=== PATIENT | male | born 1990 | race Caucasian/White ===

== ENCOUNTER → 2016-06-26 | Outpatient (CLI) | payer BC ==
[~2016-06-26] MED LIST: INSDGI SC; INSUINJ14 SC; LEVO125T4 PO
[2016-06-26 12:06] LABS: ALT/SGPT 29 U/L (12-78); AST/SGOT 18 U/L (15-37); BLOOD UREA NITROGEN 16 mg/dl (7-18); BUN/CREATININE RATIO 16.6 (10-20); CALCIUM 9.4 mg/dl (8.5-10.1); CARBON DIOXIDE 28 mmol/L (21-32); CHLORIDE 101 mmol/L (98-107); CREATININE 0.96 mg/dl (0.60-1.40); GLUCOSE 116 mg/dl (70-99); POTASSIUM 3.9 mmol/L (3.5-5.1); SODIUM 138 mmol/L (136-145)
[2016-06-26 12:16] LABS: ALB/GLOB RATIO 0.9 (0.9-2); ALKALINE PHOSPHATASE 162 U/L (45-117); CHOLESTEROL 242 mg/dl (0-200); CHOLESTEROL/HDL RATIO 3.6; HDL CHOLESTEROL 67 mg/dl; LDL CHOLESTEROL CALCULATED 116 mg/dl; TRIGLYCERIDES 294 mg/dl (0-150); VERY LOW DENSITY LIPOPROT CALC 59 mg/dl
[2016-06-26 12:30] LABS: RATIO 19.5 mcg/mg (0-30.0)
[2016-06-26 12:59] LABS: ESTIMATED AVERAGE GLUCOSE 298 mg/dl; HA1C FLAG Normal (Normal)
== END | disposition home or self-care (01) ==
LOC: C.LAB1850 10:29
PROVIDERS: ATTEND Nurse Practitioner Adult Health
DX: E10.9 Type 1 diabetes mellitus without complications (principal); E03.9 Hypothyroidism, unspecified; E06.3 Autoimmune thyroiditis; E55.9 Vitamin D deficiency, unspecified

== ENCOUNTER 2019-07-08 21:59 | Inpatient (IN) ==
[2019-07-08] MEDS ORDERED: SODIUM CHLORIDE 0.9% 1000ML 2,000 ML IV ONE (22:21)
[2019-07-08] MEDS ORDERED: ONDANSETRON INJ 2 MG/ML 2 ML VIAL IV STA (22:21)
--- NOTE | 2019-07-08 22:53 | XRay Report ---
XR chest 1V portable HISTORY: 29 years-old Male cough acute cough with flulike symptoms COMPARISON: Chest radiographs 09/07/2012 TECHNIQUE: Portable AP view of the chest FINDINGS: Cardiomediastinal and hilar silhouettes are within normal limits. No pneumothorax, pleural effusion, focal airspace consolidation or overt pulmonary edema. Bones of the chest appear grossly intact. IMPRESSION: No acute process. ACT 112: Negative or not required by law. The above report was generated using voice recognition software. It may contain grammatical, syntax o r spelling errors. Electronically signed by: Roly Velasquez M.D. 07/08/2019 10:52 PM
[2019-07-08 22:56] LABS: Basophils # (auto) 0.02 K/uL (0-0.2); Basophils % (auto) 0.1 %; Immature Granulocytes # (auto) 0.03 K/uL (0.00-0.02); Immature Granulocytes % (auto) 0.2 %; Lymphocytes # (auto) 1.44 K/uL (1.2-3.4); Lymphocytes % (auto) 10.1 %; Mean Corpuscular Hemoglobin 28.8 pg (25-34); Mean Corpuscular Hgb Conc 34.7 g/dL (32-36); Mean Corpuscular Volume 83.1 fL (80-100); Mean Platelet Volume 10.2 fL (7.4-10.4); Monocytes # (auto) 0.99 K/uL (0.11-0.59); Neutrophils # (auto) 11.73 K/uL (1.4-6.5); Neutrophils % (auto) 82.6 %; Platelet Count 302 K/uL (130-400); RDW Coefficient of Variation 13.3 % (11.5-14.5); RDW Standard Deviation 39.6 fL (36.4-46.3); White Blood Count 14.21 K/uL (4.8-10.8)
[2019-07-08 23:07] LABS: Partial Thromboplastin Ratio 1.1; Partial Thromboplastin Time 30.9 Seconds (21.0-31.0); Prothrombin Time 10.5 Seconds (9.0-12.0)
[2019-07-08 23:25] LABS: Albumin Globulin Ratio 0.7 (0.9-2); BUN Creatinine Ratio 8.9 (10-20); Bilirubin,Total 0.5 mg/dl (0.2-1); Calcium 9.5 mg/dl (8.5-10.1); Creatinine Clr Calc Pharmacy 91.6 ml/min; Est GFR (Non-African American) 62.1; Globulin 5.5 gm/dl (2.5-4.0); Potassium 4.5 mmol/L (3.5-5.1); Total Protein 9.5 gm/dl (6.4-8.2)
[2019-07-09 00:08] LABS: Appearance Urine Clear (Clear); Bacteria Urine Automated Negative (Negative); Bilirubin Urine Negative (Negative); Blood Urine 1+ (Negative); Color Urine Yellow; Glucose Urine UA 3+ (Negative); Leukocyte Esterase Urine Negative (Negative); Nitrite Urine Negative (Negative); Protein Urine 2+ (Negative); RBC Urine Automated 0-4 /hpf (0-4); Specific Gravity Urine 1.031 (1.000-1.030); Urobilinogen Urine Negative (Negative)
[2019-07-09 00:18] LABS: Ketones Urine 4+ (Negative)
[2019-07-09 00:19] LABS: Beta-Hydroxybutyrate 88.42 mg/dl (0.2-2.81)
[2019-07-09] MEDS ORDERED: OSELTAMIVIR PHOSPHATE 75 MG CAP PO STA (00:30)
[2019-07-09] MEDS ORDERED: DiphenhydrAMINE HCL 50 MG/ML VIAL IV STA (00:39)
[2019-07-09] MEDS ORDERED: PROCHLORPERAZINE 2 ML IV ONE (00:39)
[2019-07-09] MEDS ORDERED: ALBUT/IPRATROP 3MG/0.5MG NEB 3 ML VIAL INH PRN (02:08)
[2019-07-09] MEDS ORDERED: ICU PROTOCOL FOR HYPERGLYCEMIA PRN (02:08)
--- NOTE | 2019-07-09 02:09 | History & Physical Report ---
Date of Service July 09, 2019 Assessment & Plan (1) DKA (diabetic ketoacidoses): Patient is a 29-year-old male with a past medical history of obesity, hypothyroidism/Elias's thyroiditis, poorly controlled type 1 diabetes, who presents to the emergency department for evaluation of hyperglycemia, nausea and vomiting in the setting of recent influenza infection and diagnosed with diabetic ketoacidosis. #Diabetic ketoacidosis Patient with a longstanding history of poorly controlled type 1 diabetes most recent A1c was 11.2. Patient does not use an insulin pump at home however checks his blood sugars before meals at bedtime. Patient reports his blood sugars were responding normally to insulin, however he became sick. This morning he was experiencing nausea and vomiting and was noted to be hyperglycemic to the 400. Given his symptoms he presented to the emergency department further evaluation. Labs in the emergency department are consistent with DKA, hyperglycemia to 305, bicarb of 12, beta junction butyrate of 88, gap of 24. Given his fluctuating mental status patient will be admitted to the ICU for management of DKA. -Admit to the ICU -Insulin drip -BMP every 4 hours -DKA protocol -Monitor respiratory and neurological status #Influenza Symptoms started this past Friday was evaluated on the by nurse practitioner started him on Tamiflu. Continue Tamiflu, treat symptomatically as indicated. -Continue Tamiflu -IV Tylenol for fever/pain -Duo nebs and budesonide for respiratory -Chest PT/flutter valve/incentive spirometry -When able convert to p.o. meds #Poorly controlled diabetes type 1 Patient with a most recent A1c of 11.2. Needs to obtain better glucose control. Consider consulting inclusion paraeducator prior to discharge for strategies to better control his glucose. -Consider inclusion paraeducator consult #History of Elias's thyroiditis -Continue levothyroxine 150 mcg p.o. every morning #Dyslipidemia Most recent LDL was 114 from February 2019, given his poorly controlled diabetes, and elevated cholesterol this patient would likely benefit from statin therapy. -Consider addition of statin on discharge FENa: N.p.o. for now Code Status: Full DVT PPX: Lovenox PT/OT: Not indicated Dispo: ICU Cholo Bryan MD PGY 2, FCM This chart was completed utilizing netomat voice recognition software. Grammatical errors, random word insertions, pronoun errors, and in complete sentences are an occasional consequence of the system. Any questions or concerns about the content, text, or information contained within the body of this dictation should be addressed directly to the physician for clarification. 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 Patient was in his usual state of health until this past Friday when he began experiencing flu symptoms. He reported that they hit him like a train. He experience cough, congestion, malaise, muscle aches and pains, and other symptoms typical of flu. He presented to [facility] the where he was diagnosed with influenza and started on Tamiflu. The patient did not modify his insulin regimen to account for his illness. He continued to be symptomatic and this morning developed nausea and vomiting. He has been nauseated and vomited throughout the entire day unable to keep any food down, with some associated abdominal pain, denies constipation, diarrhea, chest pressure, chest pain, shortness of breath, trouble breathing, other concerning signs or symptoms. The patient reported checking his blood sugars throughout the day and noted his highest value to be 400. Upon arrival to the emergency department labs were obtained and pertinent for a white count of 14.21 with a neutrophil predominance 11.73. Chemistries were notable for a sodium of 129, carbon dioxide of 12, creatinine of 1.49 glucose of 363, anion gap of 24, alkaline phosphatase of 160, total protein 9.5, lipase 30, beta hydroxybutyrate 88.42. Urinalysis demonstrated specific gravity of 1.031, 2+ protein, 3+ glucose, 4+ ketones, 1+ blood with hyaline casts and epithelial cells. A chest x-ray was obtained and was negative. The hospital service was consulted for admission for DKA in the setting of influenza. Upon evaluation the patient in the emergency department he appeared alert and oriented however stuporous and frequently will fall asleep mid conversation. The history described above was obtained through combinations of talking with the patient and his mother who was present in the room. Given the patient's fluctuating mental status the patient will be admitted to the ICU. Acute concerns related to influenza status, and mental status. All questions answered Primary Care Provider: Zaynab Gomez MD Allergies Allergy/AdvReac Type Severity Reaction Status Date / Time No Known Allergies Allergy Verified 07/08/19 22:32 Home Medications Home Medications Medication Instructions Recorded Confirmed Type insulin aspart U-100 100 unit/mL See Rx Instructions .ROUTE 03/15/19 07/08/19 History (3 mL) subcutaneous pen .COMPLEX #30 ml Lantus Solostar U-100 Insulin 100 See Rx Instructions SQ .COMPLEX 90 06/28/19 07/08/19 Rx unit/mL (3 mL) subcutaneous pen Days #3 box NS oseltamivir 75 mg capsule 75 mg PO BID PRN 5 Days #10 cap 07/07/19 07/08/19 Rx ergocalciferol (vitamin D2) 50,000 units PO 3XWK 07/08/19 07/08/19 History levothyroxine 150 mcg PO QAM 07/08/19 07/08/19 History Past Med/Surg History Medical History Background diabetic retinopathy associated with type 1 diabetes mellitus (Acute) Dyslipidemia (Acute) Erectile dysfunction (Acute) Elias's thyroiditis (Acute) Hypothyroidism (Acute) Microalbuminuria (Acute) Neurodermatitis (Acute) Obesity (BMI 30.0-34.9) (Acute) Uncontrolled type 1 diabetes mellitus with neurologic complication, with long- term current use of insulin (Acute) Uncontrolled type 1 diabetes mellitus with ophthalmic complication, with long- term current use of insulin (Acute) Vitamin D deficiency (Acute) Surgical History No pertinent past surgical history S/P tooth extraction Family History Grandfather Diabetes Aunt Diabetes Denies family history of Ovarian cancer Prostate cancer Myocardial infarction Breast cancer Lung cancer Colorectal cancer Stroke Social History Preferred Language: Kyr[place]z Communication Ability: Effective Visual Impairment: Limited Hearing Ability: Normal Wood Scaler Required: No Beliefs That Will Affect Care: None marital status: Current Living Situation: Family current occupational status: employed 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 Other Information That Helps Us Care for You: No Feels Safe at Home: Yes Safety Concerns: Feels Safe At This Time Smoking Status: Never smoker Do You Dip or Chew Tobacco: No ; Second Hand Exposure: No ; Tobacco Cessation Education Requested by Patient: No Hx Alcohol Use: Yes Alcohol type: hard liquor Alcohol Intake Frequency: Rarely Hx Substance Use: No Childhood Exposure to Second-Hand Smoke: No Review of Systems Review of Systems: 12 point review of systems negative except as noted above or below Constitutional: Normal or as above Eyes and Vision: Normal or as above ENT: Normal or as above Cards: Normal or as above Respiratory: Normal or as above GI: Normal or as above : Normal or as above MSK: Normal or as above Skin: Normal or as above Neuro: Normal or as above Psych: normal or as above Allergy and Immunology: Normal or as above Physical Exam Physical Exam: General: Somnolent gentleman appearing his stated age lying in bed coughing HEENT: Normocephalic atraumatic Neck: Normal to visual inspection, trachea midline, negative JVD Cardiac: Tachycardic otherwise regular rate and rhythm, no murmurs rubs or gallops, normal S1, normal S2, I did not appreciate any significant pedal edema, nor calf tenderness Respiratory: Clear to auscultation bilaterally with symmetrical chest expansion bilaterally a bit tachypneic at times, no increased work of breathing GI: Bowel sounds present hypoactive in nature otherwise soft, nontender, nondistended MSK: Moves all extremities Skin: Excoriations and scars throughout his body supposedly gets bug bites and picks at them Neuro: Intermittently alert and oriented x4 was able to perform executive functions, however would frequently fall asleep during the interview Psych: Calm and cooperative Results & Data Vital Signs (Past 12 Hours) Vital Signs Temp Pulse Resp BP Pulse Ox 07/08/19 23:30 95 H 19 125/85 96 07/08/19 23:01 89 22 98 07/08/19 23:00 91 H 26 H 156/99 H 97 07/08/19 22:50 89 21 98 07/08/19 22:46 96 H 13 97 02/27/20 22:44 89 19 155/94 H 95 07/08/19 22:37 96 07/08/19 22:04 36.7 C 108 H 18 142/84 H 98 Laboratory Results 07/09/19 07/08/19 07/08/19 Range/Units 00:32 23:55 22:41 WBC (4.8-10.8) K/uL RBC (4.7-6.1) M/uL Hgb (14.0-18.0) g/dL Hct (42-52) % MCV (80-100) fL MCH (25-34) pg MCHC (32-36) g/dL RDW Std Deviation (36.4-46.3) fL RDW Coeff of Edie (11.5-14.5) % Plt Count (130-400) K/uL MPV (7.4-10.4) fL Immature Gran % (Auto) % Neut % (Auto) % Lymph % (Auto) % [place] % (Auto) % Eos % (Auto) % Baso % (Auto) % Immature Gran # (Auto) (0.00-0.02) K/uL Neut # (Auto) (1.4-6.5) K/uL Lymph # (Auto) (1.2-3.4) K/uL [place] # (Auto) (0.11-0.59) K/uL Eos # (Auto) (0-0.5) K/uL Baso # (Auto) (0-0.2) K/uL PT (9.0-12.0) Seconds INR (0.9-1.1) APTT (21.0-31.0) Seconds PTT Ratio Sodium (136-145) mmol/L Potassium (3.5-5.1) mmol/L Chloride (98-107) mmol/L Carbon Dioxide (21-32) mmol/L Anion Gap (3-11) BUN (7-18) mg/dl Creatinine (0.6-1.4) mg/dl Est Cr Clr Drug Dosing ml/min Est GFR ( Amer) Est GFR (Non-Af Amer) BUN/Creatinine Ratio (10-20) Glucose (70-99) mg/dl POC Glucose 305 H* (70-99) mg/dl Lactate 1.6 (0.4-2.0) mmol/L Calcium (8.5-10.1) mg/dl Total Bilirubin (0.2-1) mg/dl AST (15-37) U/L ALT (12-78) U/L Alkaline Phosphatase (45-117) U/L Total Protein (6.4-8.2) gm/dl Albumin (3.4-5.0) gm/dl Globulin (2.5-4.0) gm/dl Albumin/Globulin Ratio (0.9-2) Lipase (73-393) U/L Beta-Hydroxybutyric Acd (0.2-2.81) mg/dl Urine Color Yellow Urine Appearance Clear (Clear) Urine pH 5.0 (4.5-7.5) Ur Specific [place] 1.031 H (1.000-1.030) Urine Protein 2+ H (Negative) Urine Glucose (UA) 3+ H (Negative) Urine Ketones 4+ H (Negative) Urine Blood 1+ H (Negative) Urine Nitrite Negative (Negative) Urine Bilirubin Negative (Negative) Urine Urobilinogen Negative (Negative) Ur Leukocyte Esterase Negative (Negative) Urine WBC (Auto) 1-5 (0-5) /hpf Urine RBC (Auto) 0-4 (0-4) /hpf U Hyaline Cast (Auto) 5-10 H (0-5) /lpf U Epithel Cells (Auto) 10-20 H (0-5) /lpf Urine Bacteria (Auto) Negative (Negative) 07/08/19 07/08/19 07/08/19 Range/Units 22:41 22:41 22:41 WBC 14.21 H (4.8-10.8) K/uL RBC 5.90 (4.7-6.1) M/uL Hgb 17.0 (14.0-18.0) g/dL Hct 49.0 (42-52) % MCV 83.1 (80-100) fL MCH 28.8 (25-34) pg MCHC 34.7 (32-36) g/dL RDW Std Deviation 39.6 (36.4-46.3) fL RDW Coeff of Edie 13.3 (11.5-14.5) % Plt Count 302 (130-400) K/uL MPV 10.2 (7.4-10.4) fL Immature Gran % (Auto) 0.2 % Neut % (Auto) 82.6 % Lymph % (Auto) 10.1 % [place] % (Auto) 7.0 % Eos % (Auto) 0.0 % Baso % (Auto) 0.1 % Immature Gran # (Auto) 0.03 H (0.00-0.02) K/uL Neut # (Auto) 11.73 H (1.4-6.5) K/uL Lymph # (Auto) 1.44 (1.2-3.4) K/uL [place] # (Auto) 0.99 H (0.11-0.59) K/uL Eos # (Auto) 0.00 (0-0.5) K/uL Baso # (Auto) 0.02 (0-0.2) K/uL PT 10.5 (9.0-12.0) Seconds INR 1.0 (0.9-1.1) APTT 30.9 (21.0-31.0) Seconds PTT Ratio 1.1 Sodium 129 L (136-145) mmol/L Potassium 4.5 (3.5-5.1) mmol/L Chloride 93 L (98-107) mmol/L Carbon Dioxide 12 L (21-32) mmol/L Anion Gap 24.0 H (3-11) BUN 13 (7-18) mg/dl Creatinine 1.49 H (0.6-1.4) mg/dl Est Cr Clr Drug Dosing 91.6 ml/min Est GFR ( Amer) 72.0 Est GFR (Non-Af Amer) 62.1 BUN/Creatinine Ratio 8.9 L (10-20) Glucose 361 H* (70-99) mg/dl POC Glucose (70-99) mg/dl Lactate (0.4-2.0) mmol/L Calcium 9.5 (8.5-10.1) mg/dl Total Bilirubin 0.5 (0.2-1) mg/dl AST 16 (15-37) U/L ALT 19 (12-78) U/L Alkaline Phosphatase 160 H (45-117) U/L Total Protein 9.5 H (6.4-8.2) gm/dl Albumin 4.0 (3.4-5.0) gm/dl Globulin 5.5 H (2.5-4.0) gm/dl Albumin/Globulin Ratio 0.7 L (0.9-2) Lipase 30 L (73-393) U/L Beta-Hydroxybutyric Acd 88.42 H (0.2-2.81) mg/dl Urine Color Urine Appearance (Clear) Urine pH (4.5-7.5) Ur Specific [place] (1.000-1.030) Urine Protein (Negative) Urine Glucose (UA) (Negative) Urine Ketones (Negative) Urine Blood (Negative) Urine Nitrite (Negative) Urine Bilirubin (Negative) Urine Urobilinogen (Negative) Ur Leukocyte Esterase (Negative) Urine WBC (Auto) (0-5) /hpf Urine RBC (Auto) (0-4) /hpf U Hyaline Cast (Auto) (0-5) /lpf U Epithel Cells (Auto) (0-5) /lpf Urine Bacteria (Auto) (Negative) 07/08/19 Range/Units 22:40 WBC (4.8-10.8) K/uL RBC (4.7-6.1) M/uL Hgb (14.0-18.0) g/dL Hct (42-52) % MCV (80-100) fL MCH (25-34) pg MCHC (32-36) g/dL RDW Std Deviation (36.4-46.3) fL RDW Coeff of Edie (11.5-14.5) % Plt Count (130-400) K/uL MPV (7.4-10.4) fL Immature Gran % (Auto) % Neut % (Auto) % Lymph % (Auto) % [place] % (Auto) % Eos % (Auto) % Baso % (Auto) % Immature Gran # (Auto) (0.00-0.02) K/uL Neut # (Auto) (1.4-6.5) K/uL Lymph # (Auto) (1.2-3.4) K/uL [place] # (Auto) (0.11-0.59) K/uL Eos # (Auto) (0-0.5) K/uL Baso # (Auto) (0-0.2) K/uL PT (9.0-12.0) Seconds INR (0.9-1.1) APTT (21.0-31.0) Seconds PTT Ratio Sodium (136-145) mmol/L Potassium (3.5-5.1) mmol/L Chloride (98-107) mmol/L Carbon Dioxide (21-32) mmol/L Anion Gap (3-11) BUN (7-18) mg/dl Creatinine (0.6-1.4) mg/dl Est Cr Clr Drug Dosing ml/min Est GFR ( Amer) Est GFR (Non-Af Amer) BUN/Creatinine Ratio (10-20) Glucose (70-99) mg/dl POC Glucose 363 H* (70-99) mg/dl Lactate (0.4-2.0) mmol/L Calcium (8.5-10.1) mg/dl Total Bilirubin (0.2-1) mg/dl AST (15-37) U/L ALT (12-78) U/L Alkaline Phosphatase (45-117) U/L Total Protein (6.4-8.2) gm/dl Albumin (3.4-5.0) gm/dl Globulin (2.5-4.0) gm/dl Albumin/Globulin Ratio (0.9-2) Lipase (73-393) U/L Beta-Hydroxybutyric Acd (0.2-2.81) mg/dl Urine Color Urine Appearance (Clear) Urine pH (4.5-7.5) Ur Specific [place] (1.000-1.030) Urine Protein (Negative) Urine Glucose (UA) (Negative) Urine Ketones (Negative) Urine Blood (Negative) Urine Nitrite (Negative) Urine Bilirubin (Negative) Urine Urobilinogen (Negative) Ur Leukocyte Esterase (Negative) Urine WBC (Auto) (0-5) /hpf Urine RBC (Auto) (0-4) /hpf U Hyaline Cast (Auto) (0-5) /lpf U Epithel Cells (Auto) (0-5) /lpf Urine Bacteria (Auto) (Negative) Code Status & VTE Plan Code Status full VTE Prophylaxis Plan VTE Prophylaxis will be ordered: Yes Critical Care Time Critical Care Time: Yes Total Critical Care Time: 45 Total critical care time was 45 minutes Supervising Physician Co-Signing Physician Notes Attending addendum: I have physically seen this patient, have supervised the medical residents activities, and agree with the H&P unless as otherwise noted. Assessment and Plan: Diabetes mellitus type 1- Received 2 L normal saline in the ED. Patient will be admitted to the ICU. Begin insulin drip per protocol. BMP, magnesium and phosphorus levels every 4 hours. Order set per DKA protocol. Influenza B- Continue Tamiflu Acetaminophen 1000 mg IV every 8 hours PRN mild pain or temperature. Duonebs every 4 hours while awake and every 2 hours when necessary. Pulmicort Respules 0.5 mg inhaled twice daily Admitted to the intensive care unit- Consult bankruptcy assistant Dr. Canseco Remaining orders and notations per ICU staff. Resident Activity Tracking Resident Involvement: Resident Care Provided Care Provided: Adult [facility]
[2019-07-09] MEDS ORDERED: ACETAMINOPHEN 1,000 MG/100 ML VIAL IV PRN (02:12)
[2019-07-09] MEDS ORDERED: DKA GOAL RANGE 150-250 mg/dl ONE (02:12)
[2019-07-09] MEDS ORDERED: NORMOSOL-R 1,000 ML IV SCH (02:15)
--- NOTE | 2019-07-09 02:47 | Emergency Department Note ---
History of Present Illness General Chief complaint: Flu Like Symptoms Stated complaint: POSSIBLE FLU, VOMITING, DIABETIC Source: patient Mode of arrival: ambulatory Limitations: no limitations History of Present Illness Provider Complaint: + nausea, + vomiting and + other (influenza, diabetes) Onset (ago): hour(s) 5 Description of Vomiting: + food contents and + watery Description of Diarrhea: + none Associated Abdominal Pain: No Severity: moderate Maximum Pain Intensity: 4 Current Pain Intensity: 4 Quality: + cramping Pain Consistency: + intermittent Relieved By: + none Exacerbated By: + eating and + vomiting Associated symptoms: + myalgias, + cough, + fever/chills, + headaches, + malaise, + nausea/vomiting and + weakness Treatments prior to arrival: + none HPI Narrative: This 29-year-old male patient with significant past medical history of type 1 diabetes and hypothyroidism, recently diagnosed with influenza B presents the emergency department today, ambulatory, accompanied by his mother with complaints of nausea, vomiting which began approximately 5 hours prior to arrival. The patient states he was able to eat and drink earlier today, but developed the nausea and vomiting several hours later this evening. He denies any fever, chest pain, specific abdominal pain, but does report some generalized abdominal cramping. The patient states his body "feels warm". He was seen by his PCP yesterday and diagnosed with influenza. He was prescribed Tamiflu. He denies any diarrhea. Last bowel movement was today and was normal. The patient does admit to being a poorly controlled diabetic. He takes NovoLog and Lantus. His last blood sugar was 400 2 hours ago. He states typically it runs in the 200s. Home Medications Home Medications Medication Instructions Recorded Confirmed Type insulin aspart U-100 100 unit/mL See Rx Instructions .ROUTE 03/15/19 07/08/19 History (3 mL) subcutaneous pen .COMPLEX #30 ml Lantus Solostar U-100 Insulin 100 See Rx Instructions SQ .COMPLEX 90 06/28/19 07/08/19 Rx unit/mL (3 mL) subcutaneous pen Days #3 box NS oseltamivir 75 mg capsule 75 mg PO BID PRN 5 Days #10 cap 07/07/19 07/08/19 Rx ergocalciferol (vitamin D2) 50,000 units PO 3XWK 07/08/19 07/08/19 History levothyroxine 150 mcg PO QAM 07/08/19 07/08/19 History Allergies Allergy/AdvReac Type Severity Reaction Status Date / Time No Known Allergies Allergy Verified 07/08/19 22:32 Past Med/Surg History Medical History Background diabetic retinopathy associated with type 1 diabetes mellitus (Acute) Dyslipidemia (Acute) Erectile dysfunction (Acute) Elias's thyroiditis (Acute) Hypothyroidism (Acute) Microalbuminuria (Acute) Neurodermatitis (Acute) Obesity (BMI 30.0-34.9) (Acute) Uncontrolled type 1 diabetes mellitus with neurologic complication, with long- term current use of insulin (Acute) Uncontrolled type 1 diabetes mellitus with ophthalmic complication, with long- term current use of insulin (Acute) Vitamin D deficiency (Acute) Surgical History No pertinent past surgical history S/P tooth extraction Family History Grandfather Diabetes Aunt Diabetes Denies family history of Ovarian cancer Prostate cancer Myocardial infarction Breast cancer Lung cancer Colorectal cancer Stroke Social History Preferred Language: Yemeni Communication Ability: Effective Visual Impairment: Limited Hearing Ability: Normal On Site Manager Required: No Beliefs That Will Affect Care: None marital status: Current Living Situation: Family current occupational status: employed 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 Safe at Home: Yes Smoking Status: Never smoker Second Hand Exposure: No ; Hx Alcohol Use: Yes Alcohol Intake Frequency: Rarely Hx Substance Use: No Childhood Exposure to Second-Hand Smoke: No Review of Systems A total of 10 systems reviewed and were otherwise negative Physical Exam Vital Signs: Vital Signs - 24 hr 07/08/19 22:04 07/08/19 22:37 07/08/19 22:44 Temperature 36.7 C Temperature Source Oral Pulse Rate 108 H 89 Pulse Rate from Sp O2 Sensor 90 Respiratory Rate 18 19 Blood Pressure 142/84 H 155/94 H Blood Pressure Anju n 103 104 Pulse Oximetry 98 96 95 Oxygen Delivery Me thod Room Air Sepsis Recent Feve r Within 48 Hours Yes Sepsis New/Unexpla ined Change in Men padmini Status No Sepsis Action Take n by Nursing No Action Required 07/08/19 22:46 07/08/19 22:50 07/08/19 23:00 Temperature Temperature Source Pulse Rate 96 H 89 91 H Pulse Rate from Sp O2 Sensor 96 H 89 93 H Respiratory Rate 13 21 26 H Blood Pressure 156/99 H Blood Pressure Anju n 104 Pulse Oximetry 97 98 97 Oxygen Delivery Me thod Sepsis Recent Feve r Within 48 Hours Sepsis New/Unexpla ined Change in Men padmini Status Sepsis Action Take n by Nursing 07/08/19 23:01 07/08/19 23:30 07/09/19 00:01 Temperature Temperature Source Pulse Rate 89 95 H 104 H Pulse Rate from Sp O2 Sensor 90 Respiratory Rate 22 19 23 Blood Pressure 125/85 155/99 H Blood Pressure Anju n 102 113 Pulse Oximetry 98 96 99 Oxygen Delivery Me thod Sepsis Recent Feve r Within 48 Hours Sepsis New/Unexpla ined Change in Men padmini Status Sepsis Action Take n by Nursing 07/09/19 00:30 07/09/19 01:00 07/09/19 01:30 Temperature Temperature Source Pulse Rate 98 H 104 H 98 H Pulse Rate from Sp O2 Sensor Respiratory Rate 25 H 23 22 Blood Pressure 158/103 H 120/79 147/89 H Blood Pressure Anju n 121 94 111 Pulse Oximetry 97 97 97 Oxygen Delivery Me thod Sepsis Recent Feve r Within 48 Hours Sepsis New/Unexpla ined Change in Men padmini Status Sepsis Action Take n by Nursing 07/09/19 02:00 07/09/19 02:30 Temperature Temperature Source Pulse Rate 94 H 97 H Pulse Rate from Sp O2 Sensor Respiratory Rate 17 21 Blood Pressure 123/77 138/77 Blood Pressure Anju n 95 95 Pulse Oximetry 97 95 Oxygen Delivery Me thod Sepsis Recent Feve r Within 48 Hours Sepsis New/Unexpla ined Change in Men padmini Status Sepsis Action Take n by Nursing Physical Exam: VITALS: Vitals are noted on the nurse's note and reviewed by myself. Patient is tachycardic. Afebrile. GENERAL: This is a 29-year-old white male, in no acute distress, nondiaphoretic, well-developed well-nourished. SKIN: The skin was without rashes, erythema, edema, or bruising. There is no tenting of the skin. Capillary refill less than 2 seconds. HEAD: Normocephalic atraumatic. EARS: External auditory canals clear, tympanic membranes pearly lopez without erythema or effusion bilaterally. EYES: Pupils equal round and reactive to light and accommodation. Conjunctivae without injection, sclerae without icterus. NOSE: Patent, turbinates without inflammation or discharge. No sinus tenderness. MOUTH: Mucous membranes moist. Tonsils are not enlarged. Pharynx without eryth charlene or exudate. Uvula midline. Airway patent. Tongue does not deviate. NECK: Supple without nuchal rigidity. No lymphadenopathy. No thyromegaly. Cervical spine is nontender. No JVD. HEART: Regular rate and rhythm without murmurs gallops or rubs. LUNGS: Clear to auscultation bilaterally without wheezes, rales or rhonchi. No retractions or accessory muscle use. ABDOMEN: Positive bowel sounds x 4. Normal tympanic percussion. Soft, nontender, without masses or organomegaly. No guarding or rebound tenderness. MUSCULOSKELETAL: No muscle atrophy, erythema, or edema noted. Full range of motion without joint tenderness in all extremities. No tenderness to palpation. Normal gait. Strength 5/5 throughout. NEURO: Patient was alert and oriented to person place and time. Patient answer ing questions appropriately. Normal sensation to light and sharp touch. No focal neurological deficits. Course Course The patient was seen and evaluated as above. IV access obtained, labs drawn. Patient medicated with 2 L IV fluids, Zofran. Imaging performed and reviewed by myself and radiologist as noted. Labs reviewed by myself. I discussed the findings with the patient at bedside. He indicated that he was not advised to provide a urine sample. I provided him the sample cup and notified the nurse. Urinalysis reviewed. I discussed the case with the complaint manager. Recommended admission for DKA. I discussed the case with Dr. Byrd. He did agree to see and evaluate the patient. The patient was given Compazine and Benadryl due to vomiting and inability to tolerate the Tamiflu. Administered Medications Discontinued Medications Diphenhydramine HCl (Benadryl) 12.5 mg IV NOW STA Stop: 07/09/19 00:40 Last Admin: 07/09/19 00:41 Dose: 12.5 mg Documented by: [id number] Sodium Chloride (Nss 1000ml) 2,000 mls @ 999 mls/hr IV .Q2H1M ONE Stop: 07/09/19 00:21 Last Infusion: 07/09/19 00:42 Dose: 0 mls/hr Documented by: [id number] Admin: 07/08/19 22:41 Dose: 999 mls/hr Documented by: [id number] Prochlorperazine (Compazine) 2 mls @ 1 mls/min IV ONE ONE Stop: 07/09/19 00:40 Last Admin: 07/09/19 00:41 Dose: 1 mls/min Documented by: [id number] Ondansetron HCl (Zofran) 4 mg IV NOW STA Stop: 07/08/19 22:22 Last Admin: 07/08/19 22:41 Dose: 4 mg Documented by: [id number] Oseltamivir Phosphate (Tamiflu) 75 mg PO NOW STA; Protocol Stop: 07/09/19 00:31 Last Admin: 07/09/19 01:15 Dose: 75 mg Documented by: [id number] Medical Decision Making Differential Diagnosis + gastroenteritis, + food borne illness, + infections, + appendicitis, + diverticulitis, + inflammatory bowel disease, + GI bleed, + biliary pathology, + nausea, + vomiting, + diarrhea and + abdominal pain In addition to the above, influenza, DKA, HHS acute dehydration, malignancy, among others were considered. Medical Records Attestation: I reviewed the patient's medical records. Home Medications Current Medication List: was personally reviewed by me Laboratory Data Attestation: I reviewed the patient's lab results. Leukocytosis of 14,000. No anemia or thrombocytopenia. Coags normal. POC glucose 363. Lactate 1.6. Bicarb 12, beta hydroxybutyric acid 88, anion gap 24. Urinalysis positive for ketones, glucose. Result diagrams: 07/08/19 22:41 07/08/19 22:41 Lab Results 07/08/19 07/08/19 07/08/19 Range/Units 22:40 22:41 22:41 WBC 14.21 H (4.8-10.8) K/uL RBC 5.90 (4.7-6.1) M/uL Hgb 17.0 (14.0-18.0) g/dL Hct 49.0 (42-52) % MCV 83.1 (80-100) fL MCH 28.8 (25-34) pg MCHC 34.7 (32-36) g/dL RDW Std Deviation 39.6 (36.4-46.3) fL RDW Coeff of Edie 13.3 (11.5-14.5) % Plt Count 302 (130-400) K/uL MPV 10.2 (7.4-10.4) fL Immature Gran % (Auto) 0.2 % Neut % (Auto) 82.6 % Lymph % (Auto) 10.1 % Phelps % (Auto) 7.0 % Eos % (Auto) 0.0 % Baso % (Auto) 0.1 % Immature Gran # (Auto) 0.03 H (0.00-0.02) K/uL Neut # (Auto) 11.73 H (1.4-6.5) K/uL Lymph # (Auto) 1.44 (1.2-3.4) K/uL [place]ps # (Auto) 0.99 H (0.11-0.59) K/uL Eos # (Auto) 0.00 (0-0.5) K/uL Baso # (Auto) 0.02 (0-0.2) K/uL PT 10.5 (9.0-12.0) Seconds INR 1.0 (0.9-1.1) APTT 30.9 (21.0-31.0) Seconds PTT Ratio 1.1 Sodium (136-145) mmol/L Potassium (3.5-5.1) mmol/L Chloride (98-107) mmol/L Carbon Dioxide (21-32) mmol/L Anion Gap (3-11) BUN (7-18) mg/dl Creatinine (0.6-1.4) mg/dl Est Cr Clr Drug Dosing ml/min Est GFR ( Amer) Est GFR (Non-Af Amer) BUN/Creatinine Ratio (10-20) Glucose (70-99) mg/dl POC Glucose 363 H* (70-99) mg/dl Lactate (0.4-2.0) mmol/L Calcium (8.5-10.1) mg/dl Total Bilirubin (0.2-1) mg/dl AST (15-37) U/L ALT (12-78) U/L Alkaline Phosphatase (45-117) U/L Total Protein (6.4-8.2) gm/dl Albumin (3.4-5.0) gm/dl Globulin (2.5-4.0) gm/dl Albumin/Globulin Ratio (0.9-2) Lipase (73-393) U/L Beta-Hydroxybutyric Acd (0.2-2.81) mg/dl Urine Color Urine Appearance (Clear) Urine pH (4.5-7.5) Ur Specific [place] (1.000-1.030) Urine Protein (Negative) Urine Glucose (UA) (Negative) Urine Ketones (Negative) Urine Blood (Negative) Urine Nitrite (Negative) Urine Bilirubin (Negative) Urine Urobilinogen (Negative) Ur Leukocyte Esterase (Negative) Urine WBC (Auto) (0-5) /hpf Urine RBC (Auto) (0-4) /hpf U Hyaline Cast (Auto) (0-5) /lpf U Epithel Cells (Auto) (0-5) /lpf Urine Bacteria (Auto) (Negative) 07/08/19 07/08/19 07/08/19 Range/Units 22:41 22:41 23:55 WBC (4.8-10.8) K/uL RBC (4.7-6.1) M/uL Hgb (14.0-18.0) g/dL Hct (42-52) % MCV (80-100) fL MCH (25-34) pg MCHC (32-36) g/dL RDW Std Deviation (36.4-46.3) fL RDW Coeff of Edie (11.5-14.5) % Plt Count (130-400) K/uL MPV (7.4-10.4) fL Immature Gran % (Auto) % Neut % (Auto) % Lymph % (Auto) % [place] % (Auto) % Eos % (Auto) % Baso % (Auto) % Immature Gran # (Auto) (0.00-0.02) K/uL Neut # (Auto) (1.4-6.5) K/uL Lymph # (Auto) (1.2-3.4) K/uL [place] # (Auto) (0.11-0.59) K/uL Eos # (Auto) (0-0.5) K/uL Baso # (Auto) (0-0.2) K/uL PT (9.0-12.0) Seconds INR (0.9-1.1) APTT (21.0-31.0) Seconds PTT Ratio Sodium 129 L (136-145) mmol/L Potassium 4.5 (3.5-5.1) mmol/L Chloride 93 L (98-107) mmol/L Carbon Dioxide 12 L (21-32) mmol/L Anion Gap 24.0 H (3-11) BUN 13 (7-18) mg/dl Creatinine 1.49 H (0.6-1.4) mg/dl Est Cr Clr Drug Dosing 91.6 ml/min Est GFR ( Amer) 72.0 Est GFR (Non-Af Amer) 62.1 BUN/Creatinine Ratio 8.9 L (10-20) Glucose 361 H* (70-99) mg/dl POC Glucose (70-99) mg/dl Lactate 1.6 (0.4-2.0) mmol/L Calcium 9.5 (8.5-10.1) mg/dl Total Bilirubin 0.5 (0.2-1) mg/dl AST 16 (15-37) U/L ALT 19 (12-78) U/L Alkaline Phosphatase 160 H (45-117) U/L Total Protein 9.5 H (6.4-8.2) gm/dl Albumin 4.0 (3.4-5.0) gm/dl Globulin 5.5 H (2.5-4.0) gm/dl Albumin/Globulin Ratio 0.7 L (0.9-2) Lipase 30 L (73-393) U/L Beta-Hydroxybutyric Acd 88.42 H (0.2-2.81) mg/dl Urine Color Yellow Urine Appearance Clear (Clear) Urine pH 5.0 (4.5-7.5) Ur Specific [place] 1.031 H (1.000-1.030) Urine Protein 2+ H (Negative) Urine Glucose (UA) 3+ H (Negative) Urine Ketones 4+ H (Negative) Urine Blood 1+ H (Negative) Urine Nitrite Negative (Negative) Urine Bilirubin Negative (Negative) Urine Urobilinogen Negative (Negative) Ur Leukocyte Esterase Negative (Negative) Urine WBC (Auto) 1-5 (0-5) /hpf Urine RBC (Auto) 0-4 (0-4) /hpf U Hyaline Cast (Auto) 5-10 H (0-5) /lpf U Epithel Cells (Auto) 10-20 H (0-5) /lpf Urine Bacteria (Auto) Negative (Negative) 07/09/19 Range/Units 00:32 WBC (4.8-10.8) K/uL RBC (4.7-6.1) M/uL Hgb (14.0-18.0) g/dL Hct (42-52) % MCV (80-100) fL MCH (25-34) pg MCHC (32-36) g/dL RDW Std Deviation (36.4-46.3) fL RDW Coeff of Edie (11.5-14.5) % Plt Count (130-400) K/uL MPV (7.4-10.4) fL Immature Gran % (Auto) % Neut % (Auto) % Lymph % (Auto) % [place] % (Auto) % Eos % (Auto) % Baso % (Auto) % Immature Gran # (Auto) (0.00-0.02) K/uL Neut # (Auto) (1.4-6.5) K/uL Lymph # (Auto) (1.2-3.4) K/uL [place] # (Auto) (0.11-0.59) K/uL Eos # (Auto) (0-0.5) K/uL Baso # (Auto) (0-0.2) K/uL PT (9.0-12.0) Seconds INR (0.9-1.1) APTT (21.0-31.0) Seconds PTT Ratio Sodium (136-145) mmol/L Potassium (3.5-5.1) mmol/L Chloride (98-107) mmol/L Carbon Dioxide (21-32) mmol/L Anion Gap (3-11) BUN (7-18) mg/dl Creatinine (0.6-1.4) mg/dl Est Cr Clr Drug Dosing ml/min Est GFR ( Amer) Est GFR (Non-Af Amer) BUN/Creatinine Ratio (10-20) Glucose (70-99) mg/dl POC Glucose 305 H* (70-99) mg/dl Lactate (0.4-2.0) mmol/L Calcium (8.5-10.1) mg/dl Total Bilirubin (0.2-1) mg/dl AST (15-37) U/L ALT (12-78) U/L Alkaline Phosphatase (45-117) U/L Total Protein (6.4-8.2) gm/dl Albumin (3.4-5.0) gm/dl Globulin (2.5-4.0) gm/dl Albumin/Globulin Ratio (0.9-2) Lipase (73-393) U/L Beta-Hydroxybutyric Acd (0.2-2.81) mg/dl Urine Color Urine Appearance (Clear) Urine pH (4.5-7.5) Ur Specific [place] (1.000-1.030) Urine Protein (Negative) Urine Glucose (UA) (Negative) Urine Ketones (Negative) Urine Blood (Negative) Urine Nitrite (Negative) Urine Bilirubin (Negative) Urine Urobilinogen (Negative) Ur Leukocyte Esterase (Negative) Urine WBC (Auto) (0-5) /hpf Urine RBC (Auto) (0-4) /hpf U Hyaline Cast (Auto) (0-5) /lpf U Epithel Cells (Auto) (0-5) /lpf Urine Bacteria (Auto) (Negative) Imaging Data Radiologist's Impression: XR chest 1V portable HISTORY: 29 years-old Male cough acute cough with flulike symptoms COMPARISON: Chest radiographs 09/07/2012 TECHNIQUE: Portable AP view of the chest FINDINGS: Cardiomediastinal and hilar silhouettes are within normal limits. No pneumothorax, pleural effusion, focal airspace consolidation or overt pulmonary edema. Bones of the chest appear grossly intact. IMPRESSION: No acute process. ACT 112: Negative or not required by law. The above report was generated using voice recognition software. It may contain grammatical, syntax or spelling errors. Electronically signed by: Roly Velasquez M.D. 07/08/2019 10:52 PM Blood Pressure Blood Pressure Findings: Elevated blood pressure Blood Pressure Disposition: elevated BP felt to be situational MDM Narrative This 29-year-old male patient presents the emergency department today for nausea and vomiting, hyperglycemia, and influenza. He is a type I diabetic with poorly controlled blood sugars. The patient is tachycardic, but afebrile. He was hydrated with IV fluids medicated with antiemetics while here in the department. Work-up here in the ED consistent with DKA. Chest x-ray without evidence of pneumonia. The patient will be admitted to the hospitalist service for further evaluation and management of the DKA. Please see hospitalist dictation regarding ongoing management care of this patient. The chart was completed utilizing [employer] Speech voice recognition software. Grammatical errors, random word insertions, pronoun errors, and incomplete sentences are an occasional consequence of this system due to software limitations, ambient noise, and hardware issues. Any formal questions or concerns about the content, text, or information contained within the body of this dictation should be directly addressed to the provider for clarification. Impression & Plan DKA (diabetic ketoacidoses), Vomiting, Uncontrolled type 1 diabetes mellitus with ophthalmic complication, with long-term current use of insulin Discharge Plan Visit Data Chief Complaint: Flu Like Symptoms Stated Complaint: POSSIBLE FLU, VOMITING, DIABETIC ED Provider: [facility] Midlevel Provider: Carlie Swenson Discharge Problem: DKA (diabetic ketoacidoses), Vomiting, Uncontrolled type 1 diabetes mellitus with ophthalmic complication, with long-term current use of insulin Patient Disposition: Admitted As Inpatient Forms Stand Alone Forms: [facility] Prescriptions Prescriptions: No Action Lantus Solostar U-100 Insulin 100 unit/mL (3 mL) insulin pen See Rx Instructions SQ .COMPLEX 90 Days Qty: 3 RF: 1 insulin aspart U-100 100 unit/mL (3 mL) insulin pen See Rx Instructions .ROUTE .COMPLEX Qty: 30 RF: 0 oseltamivir 75 mg capsule 75 mg PO BID PRN (Reason: Inflluenza positive) 5 Days Qty: 10 RF: 0 levothyroxine 150 mcg tablet 150 mcg PO QAM RF: 0 ergocalciferol (vitamin D2) 50,000 unit capsule 50,000 units PO 3XWK RF: 0 Referrals Referrals: Zaynab Gomez MD [Primary Care Provider] -
[2019-07-09] MEDS ORDERED: NovoLIN-R BOLUS FROM BAG IV ONE (03:00)
[2019-07-09 03:02] LABS: Allen Test Pos (Pos); Base Excess ABG -15.4 mEq/L (-9-1.8); HCO3 ABG 11 mmol/L (19-24); Oxygen Saturation ABG 93.6 % (90-95); PCO2 ABG 27 mmHg (35-46); PO2 ABG 69 mmHg (80-95); pH ABG 7.22 (7.35-7.45)
[2019-07-09] MEDS ORDERED: PHARMACY GLYCEMIC MGMT CONSULT PRN (03:06)
[2019-07-09] MEDS ORDERED: GLUCAGON FOR INJ 1 MG VIAL IM PRN (03:15)
[2019-07-09] MEDS ORDERED: DEXTROSE 50% 50 ML SYRINGE IV PRN (03:15)
[2019-07-09] MEDS ORDERED: GLUCOSE 10 TABS/TUBE PO PRN (03:15)
[2019-07-09] MEDS ORDERED: GLUCOSE 40% GEL 15 GM TUBE PO PRN (03:15)
[2019-07-09 03:18] LABS: BUN Creatinine Ratio 8.8 (10-20); Calcium 8.3 mg/dl (8.5-10.1); Creatinine Clr Calc Pharmacy 111.9 ml/min; Est GFR (African American) 91.6; Est GFR (Non-African American) 79.1; Phosphorus 2.9 mg/dl (2.5-4.9); Potassium 4.9 mmol/L (3.5-5.1)
[2019-07-09] MEDS: INSULIN REGULAR 250 UNITS in SODIUM CHLORIDE 0.9% 247.5 ML IV SCH (03:36)
[2019-07-09] MEDS ORDERED: ONDANSETRON INJ 2 MG/ML 2 ML VIAL ONE (04:13)
[2019-07-09] MEDS ORDERED: ONDANSETRON INJ 2 MG/ML 2 ML VIAL IV STA (04:13)
[2019-07-09] MEDS ORDERED: DEXTROSE 5% 1,000 ML IV SCH (05:15)
[2019-07-09] MEDS: POTASSIUM CHLORIDE 20 MEQ in DEXTROSE 5% 1,000 ML IV SCH ×4 (05:29→20:00)
[2019-07-09] MEDS ORDERED: POTASSIUM CHLORIDE 20 MEQ in DEXTROSE 5% 1,000 ML IV SCH (05:30)
--- NOTE | 2019-07-09 05:34 | Critical Care Consultation ---
Date of Consultation July 09, 2019 Assessment & Plan (1) DKA (diabetic ketoacidoses): 29-year-old male with history of uncontrolled diabetes type 1 who presents to the emergency department in DKA following influenza B infection Neuro - [facility] ICU: Negative Alert and oriented x3 Cardiac - Normal sinus rhythm on monitor, continue monitor on telemetry Respiratory - Tachypneapatient has mild compensatory tachypnea with respiratory rate in the low 20s -CO2 27 on ABG, normal PO2 on room air -Currently maintaining sats on room air Influenza Bpatient complains of sore throat and has hoarseness, reports recent hemoptysis -Lungs clear to auscultation and patient maintaining sats on room air -No acute process on chest x-ray -Continue Tamiflu -Monitor on pulse ox for now GI - Nausea and vomitingcurrently controlled PRN's N.p.o. for now RENAL/LYTES - AKIlikely from dehydration, creatinine improved with fluid resuscitation, trend Replete electrolytes as necessary Every 4 BMPs Monitoring metabolic acidosis with routine VBG's, no intervention needed at this time - Strict I's and O's ENDO - Hypothyroidismcontinue Synthroid, check TSH DKA/uncontrolled type 1 diabeteslast hemoglobin A1c February was 11, will repeat on this admission; -Initial glucose 361, BHA 88, a gap 24, bicarb 12; UA positive for ketones and glucose -Started on insulin drip, IV fluid resuscitation -DKA protocol -Every 4 hour BMPs, VBG's -Can convert to subcu insulin once gap closed and bicarb improves -Consider consult to head concierge HEME - H&H stable, monitor routine CBCs ID - Patient positive for influenza B, will continue Tamiflu and contact precautions Chest x-ray negative for acute process, UA negative for bacteria Lactate negative, afebrile No suspicion of bacterial infection at this time LINES/IV ACCESS - Peripheral IVs DVT PROPHYLAXIS - SCDs, heparin (2) Influenza: (3) Elias's thyroiditis: (4) Hypothyroidism: (5) Vomiting: Supervising Physician Co-Signing Physician Notes I agree with assessment and plan of [place] CELAYA. Patient was discussed on multidisciplinary rounds. Closing gap, continued nausea and vomiting History of Present Illness Attending Physician: Francesco Byrd MD History of Present Illness 29-year-old male with PMH of hypothyroidism/Elias's thyroiditis, uncontrolled type 1 diabetes who was recently diagnosed with influenza B and started on Tamiflu. He developed nausea and vomiting with associated abdominal pain and was noted to be hyperglycemic with blood sugar in the 400s at home. Upon arrival to the emergency department, patient was found to be in DKA with a gap 24, pH 88, bicarb 12. UA was positive for ketones and glucose. Patient was reportedly altered mental status and tachypneic in the emergency department and there was concern for compromised airway. He was transferred to the ICU on insulin drip. On arrival patient is hemodynamically stable, mildly tachypneic with respiratory rate in the 20s, and somnolent but arousable with minor stimulation and alert and oriented. Was improving on most recent labs. Patient can likely transfer from ICU, but will manage for now until labs improve. Patient reports nausea and vomiting, sore throat, productive cough with hemoptysis, body aches, and malaise. He denies headache, dizziness, chest pain, shortness of breath, abdominal pain, or diarrhea. Allergies Allergy/AdvReac Type Severity Reaction Status Date / Time No Known Allergies Allergy Verified 07/08/19 22:32 Home Medications Home Medications Medication Instructions Recorded Confirmed Type insulin aspart U-100 100 unit/mL See Rx Instructions .ROUTE 03/15/19 07/08/19 History (3 mL) subcutaneous pen .COMPLEX #30 ml Lantus Solostar U-100 Insulin 100 See Rx Instructions SQ .COMPLEX 90 06/28/19 07/08/19 Rx unit/mL (3 mL) subcutaneous pen Days #3 box NS oseltamivir 75 mg capsule 75 mg PO BID PRN 5 Days #10 cap 07/07/19 07/08/19 Rx ergocalciferol (vitamin D2) 50,000 units PO 3XWK 07/08/19 07/08/19 History levothyroxine 150 mcg PO QAM 07/08/19 07/08/19 History Patient History Medical History Background diabetic retinopathy associated with type 1 diabetes mellitus (Acute) Dyslipidemia (Acute) Erectile dysfunction (Acute) Elias's thyroiditis (Acute) Hypothyroidism (Acute) Microalbuminuria (Acute) Neurodermatitis (Acute) Obesity (BMI 30.0-34.9) (Acute) Uncontrolled type 1 diabetes mellitus with neurologic complication, with long- term current use of insulin (Acute) Uncontrolled type 1 diabetes mellitus with ophthalmic complication, with long- term current use of insulin (Acute) Vitamin D deficiency (Acute) Surgical History No pertinent past surgical history S/P tooth extraction Family History Grandfather Diabetes Aunt Diabetes Denies family history of Ovarian cancer Prostate cancer Myocardial infarction Breast cancer Lung cancer Colorectal cancer Stroke Social History Preferred Language: Turkmen Communication Ability: Effective Visual Impairment: Limited Hearing Ability: Normal 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 Beliefs That Will Affect Care: None marital status: Current Living Situation: Family current occupational status: employed 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 Other Information That Helps Us Care for You: No Feels Safe at Home: Yes Safety Concerns: Feels Safe At This Time Smoking Status: Never smoker Do You Dip or Chew Tobacco: No ; Second Hand Exposure: No ; Tobacco Cessation Education Requested by Patient: No Hx Alcohol Use: Yes Alcohol type: hard liquor Alcohol Intake Frequency: Rarely Hx Substance Use: No Childhood Exposure to Second-Hand Smoke: No Review of Systems Review of Systems: All systems reviewed & are unremarkable except as noted in HPI & below Physical Exam Constitutional: cooperative and + lethargic; not in distress Eyes: PERRL, conjunctivae normal, anicteric sclerae Neck: trachea midline, no thyromegaly Respiratory: normal respiratory effort, lungs clear to auscultation Hemoptysis Cardiovascular: RRR, no murmur, no edema Gastrointestinal (Abdomen): normal bowel sounds, soft, nontender, no hepatosplenomegaly Musculoskeletal: no cyanosis or clubbing, extremities motor strength 5/5 Skin: no rashes, warm and dry Neurologic: PERRL, EOMI, accommodation nl, no face palsy, no dysarthria Psychiatric: A+Ox3, euthymic affect Results & Data ([facility]) Vital Signs (Past 12 Hours) Vital Signs Temp Pulse Pulse Resp BP BP Pulse Ox 07/09/19 05:01 87 17 151/90 H 95 07/09/19 04:30 98 H 18 96 07/09/19 04:25 98 H 18 96 07/09/19 04:10 36.7 C 105 H 19 156/91 H 96 07/09/19 04:09 100 H 24 145/89 H 95 07/09/19 02:30 97 H 21 138/77 95 07/09/19 02:00 94 H 17 123/77 97 07/09/19 01:30 98 H 22 147/89 H 97 07/09/19 01:00 104 H 23 120/79 97 07/09/19 00:30 98 H 25 H 158/103 H 97 07/09/19 00:01 104 H 23 155/99 H 99 07/08/19 23:30 95 H 19 125/85 96 07/08/19 23:01 89 22 98 07/08/19 23:00 91 H 26 H 156/99 H 97 07/08/19 22:50 89 21 98 07/08/19 22:46 96 H 13 97 07/08/19 22:44 89 19 155/94 H 95 07/08/19 22:37 96 07/08/19 22:04 36.7 C 108 H 18 142/84 H 98 Coding Level of Care Code 33757 Inpt Consult Level 5 Diagnoses DKA (diabetic ketoacidoses) E10.10 Diabetes mellitus complication detail: without coma Diabetes mellitus type: type 1 Influenza J11.1 Elias's thyroiditis E06.3 Hypothyroidism E03.9 Vomiting R11.2 Nausea presence: with nausea Vomiting Intractability: non-intractable Vomiting type: unspecified (1) DKA (diabetic ketoacidoses) Diabetes mellitus complication detail: without coma Diabetes mellitus type: type 1 Qualified Code(s): E10.10 - Type 1 diabetes mellitus with ketoacidosis without coma (2) Vomiting Nausea presence: with nausea Vomiting Intractability: non-intractable Vomiting type: unspecified Qualified Code(s): R11.2 - Nausea with vomiting, unspecified
[2019-07-09 06:13] LABS: Basophils # (auto) 0.02 K/uL (0-0.2); Basophils % (auto) 0.2 %; Hematocrit (blood only) 44.5 % (42-52); Hemoglobin 15.6 g/dL (14.0-18.0); Immature Granulocytes # (auto) 0.04 K/uL (0.00-0.02); Immature Granulocytes % (auto) 0.3 %; Lymphocytes # (auto) 1.59 K/uL (1.2-3.4); Lymphocytes % (auto) 12.8 %; Mean Corpuscular Hemoglobin 28.8 pg (25-34); Mean Corpuscular Hgb Conc 35.1 g/dL (32-36); Mean Corpuscular Volume 82.1 fL (80-100); Mean Platelet Volume 9.7 fL (7.4-10.4); Monocytes # (auto) 1.91 K/uL (0.11-0.59); Monocytes % (auto) 15.3 %; Neutrophils # (auto) 8.91 K/uL (1.4-6.5); Neutrophils % (auto) 71.4 %; Platelet Count 305 K/uL (130-400); RDW Coefficient of Variation 13.5 % (11.5-14.5); RDW Standard Deviation 40.4 fL (36.4-46.3); Red Blood Count 5.42 M/uL (4.7-6.1); White Blood Count 12.47 K/uL (4.8-10.8)
[2019-07-09 06:57] LABS: BUN Creatinine Ratio 8.8 (10-20); Creatinine Clr Calc Pharmacy 108.9 ml/min; Est GFR (Non-African American) 76.8; Phosphorus 2.7 mg/dl (2.5-4.9); Potassium 4.1 mmol/L (3.5-5.1)
[2019-07-09] MEDS: INSULIN ASPART 100 UNITS/ML 3 ML PEN SC SCH ×4 (07:29→19:22)
[2019-07-09] MEDS ORDERED: INSULIN ASPART 100 UNITS/ML 3 ML PEN SC SCH (07:30)
[2019-07-09 07:52] LABS: Estimated Average Glucose 283 mg/dl; Hemoglobin A1C 11.5 % (4.5-5.6)
[2019-07-09] MEDS: ONDANSETRON INJ 2 MG/ML 2 ML VIAL IV PRN ×3 (08:11→19:24)
[2019-07-09] MEDS: BUDESONIDE 0.5 MG/2 ML VIAL (PULMICORT) NEB SCH ×2 (08:19→21:00)
--- NOTE | 2019-07-09 09:55 | Hospitalist Progress Note ---
Date of Service July 09, 2019 Assessment & Plan (1) DKA (diabetic ketoacidoses): Patient is a 29-year-old male with a past medical history of obesity, hypothyroidism/Elias's thyroiditis, poorly controlled type 1 diabetes, who presents to the emergency department for evaluation of hyperglycemia, nausea and vomiting in the setting of recent influenza infection and was diagnosed with diabetic ketoacidosis. 1. Diabetic ketoacidosis - Patient is a poorly controlled type I diabetic, most recent A1c was 11.2. Patient did not change his insulin regimen while on the Tamiflu, and continued to feel nauseous and have vomiting episodes until he realized his sugar was in the 400s. At this time he brought himself to the emergency department. Glucose in the emergency department was 363, with a beta hydroxybutyrate of 88 and anion gap of 24. On an insulin drip until closure of anion gap. At that time will convert to subcu insulin. -ABG last night showed a pH of 7.22, PCO2 of 27, O2 of 69, carb of 11. Anion gap metabolic acidosis likely secondary to the DKA should resolve with closure of anion gap and insulin management as well as fluid repletion. Continue to trend BMPs monitor neurological status. - Antiemetic regimen: Zofran 4mg IV Q4H, Compazine 6.25 mg Q6 2. Influenza - Symptoms started this past Friday was evaluated on the by nurse practitioner started him on Tamiflu. Continue Tamiflu, treat symptomatically as indicated. - Hasn't received Tamiflu since prior to admission however continues to have frequent bouts of emesis and near constant nausea - IV Tylenol for fever/pain - Duo nebs and budesonide for respiratory - Chest PT/flutter valve/incentive spirometry - When able convert to p.o. meds 3.Uncontrolled diabetes type 1 - A1c 11.2 - patient resistant to diabetes education per nursing - will continue attempts at education 4. Hx Elias's thyroiditis -Continue levothyroxine 150 mcg p.o. every morning 5. 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 The time of our examination, patient was resting after being medicated with Phenergan. Unfortunately he has been quite nauseous throughout the day with repeated bouts of emesis despite antiemetics. Gap is narrowing but not closed. He remains on insulin drip. Diabetic ketoacidosis Influenza B Intractable nausea and vomiting Hypothyroidism Primary management by critical care team Electrolytes every 4 hours until gap closes, then transition to subcutaneous With continued nausea vomiting consider discontinuation of Tamiflu (unclear if there will be any benefit given the length since his initial diagnosis, and this could possibly explain his nausea and vomiting). Subjective 29 yo T1DM admitted to ICU for DKA secondary to N/V while on tamiflu that was started on the . This morning he continues to feel nauseous and was actively vomiting while I was in the room. Eyes any chest pain or palpitations, or shortness of breath. He attests to generally feeling fatigued and like he "got hit by a truck". Review of Systems Constitutional: + body aches and + fatigue; no fever and no chills Respiratory: no cough and no dyspnea Cardiovascular: no chest pain, no dyspnea and no edema Gastrointestinal: + nausea and + vomiting; no abdominal pain, no constipation and no diarrhea/loose stools Physical Exam Constitutional: + acute distress, + ill appearing and cooperative Neck: normal visual inspection Respiratory: normal respiratory effort and able to speak in complete sentences; no respiratory distress, no labored breathing, no retractions, no cough and no audible wheezes Auscultation: lungs clear to auscultation bilaterally; no crackles, no rales, no rhonchi and no wheezes Cardiovascular: Rate/Rhythm: regular rate and regular rhythm Heart Sounds: normal S1 and normal S2; no gallop, no murmur and no cardiac rub Vessels: posterior tibial pulses present Extremities: no pedal edema and no edema Gastrointestinal (Abdomen): Inspection/Auscultation: abdomen normal to inspection and normal bowel sounds; abdomen not distended Percussion/Palpation: abdomen soft; abdomen nontender, no guarding, abdomen not rigid and no abdominal mass Results & Data ([facility]) Vital Signs (Past 12 Hours) Vital Signs Temp Pulse Pulse Resp BP BP Pulse Ox 07/09/19 09:03 97 H 21 154/99 H 96 07/09/19 09:00 90 20 96 07/09/19 08:04 101 H 23 96 07/09/19 08:03 103 H 23 139/104 H 96 07/09/19 08:00 95 H 20 95 07/09/19 07:30 97 H 19 96 07/09/19 07:24 98 H 07/09/19 07:00 37 C 103 H 23 164/93 H 95 07/09/19 06:13 103 H 21 137/93 96 07/09/19 05:01 87 17 151/90 H 95 07/09/19 04:30 98 H 18 96 07/09/19 04:25 98 H 18 96 07/09/19 04:10 36.7 C 105 H 19 156/91 H 96 07/09/19 04:09 100 H 24 145/89 H 95 07/09/19 02:30 97 H 21 138/77 95 07/09/19 02:00 94 H 17 123/77 97 07/09/19 01:30 98 H 22 147/89 H 97 07/09/19 01:00 104 H 23 120/79 97 07/09/19 00:30 98 H 25 H 158/103 H 97 07/09/19 00:01 104 H 23 155/99 H 99 07/08/19 23:30 95 H 19 125/85 96 07/08/19 23:01 89 22 98 07/08/19 23:00 91 H 26 H 156/99 H 97 07/08/19 22:50 89 21 98 07/08/19 22:46 96 H 13 97 07/08/19 22:44 89 19 155/94 H 95 07/08/19 22:37 96 07/08/19 22:04 36.7 C 108 H 18 142/84 H 98 07/09/19 07/09/19 07/09/19 Range/Units 10:55 10:11 10:11 WBC (4.8-10.8) K/uL RBC (4.7-6.1) M/uL Hgb (14.0-18.0) g/dL Hct (42-52) % MCV (80-100) fL MCH (25-34) pg MCHC (32-36) g/dL RDW Std Deviation (36.4-46.3) fL RDW Coeff of Edie (11.5-14.5) % Plt Count (130-400) K/uL MPV (7.4-10.4) fL Immature Gran % (Auto) % Neut % (Auto) % Lymph % (Auto) % [place] % (Auto) % Eos % (Auto) % Baso % (Auto) % Immature Gran # (Auto) (0.00-0.02) K/uL Neut # (Auto) (1.4-6.5) K/uL Lymph # (Auto) (1.2-3.4) K/uL [place] # (Auto) (0.11-0.59) K/uL Eos # (Auto) (0-0.5) K/uL Baso # (Auto) (0-0.2) K/uL PT (9.0-12.0) Seconds INR (0.9-1.1) APTT (21.0-31.0) Seconds PTT Ratio ABG pH (7.35-7.45) ABG pCO2 (35-46) mmHg ABG pO2 (80-95) mmHg ABG HCO3 (19-24) mmol/L ABG O2 Saturation (90-95) % ABG Base Excess (-9-1.8) mEq/L Tito Test (Pos) VBG pH 7.25 L (7.36-7.41) Barometric Pressure mm/Hg Oxygen Given Sodium 130 L (136-145) mmol/L Potassium 4.3 (3.5-5.1) mmol/L Chloride 101 (98-107) mmol/L Carbon Dioxide 18 L (21-32) mmol/L Anion Gap 11.0 (3-11) BUN 9 (7-18) mg/dl Creatinine 1.39 (0.6-1.4) mg/dl Est Cr Clr Drug Dosing 97.9 ml/min Est GFR ( Amer) 78.3 Est GFR (Non-Af Amer) 67.5 BUN/Creatinine Ratio 6.3 L (10-20) Glucose 210 H (70-99) mg/dl POC Glucose 205 H (70-99) mg/dl Estimat Average Glucose mg/dl Hemoglobin A1c (4.5-5.6) % Lactate (0.4-2.0) mmol/L Calcium 8.7 (8.5-10.1) mg/dl Phosphorus 1.9 L (2.5-4.9) mg/dl Magnesium 2.0 (1.8-2.4) mg/dl Total Bilirubin (0.2-1) mg/dl AST (15-37) U/L ALT (12-78) U/L Alkaline Phosphatase (45-117) U/L Total Protein (6.4-8.2) gm/dl Albumin (3.4-5.0) gm/dl Globulin (2.5-4.0) gm/dl Albumin/Globulin Ratio (0.9-2) Lipase (73-393) U/L Beta-Hydroxybutyric Acd (0.2-2.81) mg/dl TSH (0.300-4.500) uIu/ml Urine Color Urine Appearance (Clear) Urine pH (4.5-7.5) Ur Specific [place] (1.000-1.030) Urine Protein (Negative) Urine Glucose (UA) (Negative) Urine Ketones (Negative) Urine Blood (Negative) Urine Nitrite (Negative) Urine Bilirubin (Negative) Urine Urobilinogen (Negative) Ur Leukocyte Esterase (Negative) Urine WBC (Auto) (0-5) /hpf Urine RBC (Auto) (0-4) /hpf U Hyaline Cast (Auto) (0-5) /lpf U Epithel Cells (Auto) (0-5) /lpf Urine Bacteria (Auto) (Negative) Nasal Screen MRSA (PCR) (Negative) 07/09/19 07/09/19 07/09/19 Range/Units 09:08 08:10 07:12 WBC (4.8-10.8) K/uL RBC (4.7-6.1) M/uL Hgb (14.0-18.0) g/dL Hct (42-52) % MCV (80-100) fL MCH (25-34) pg MCHC (32-36) g/dL RDW Std Deviation (36.4-46.3) fL RDW Coeff of Edie (11.5-14.5) % Plt Count (130-400) K/uL MPV (7.4-10.4) fL Immature Gran % (Auto) % Neut % (Auto) % Lymph % (Auto) % [place] % (Auto) % Eos % (Auto) % Baso % (Auto) % Immature Gran # (Auto) (0.00-0.02) K/uL Neut # (Auto) (1.4-6.5) K/uL Lymph # (Auto) (1.2-3.4) K/uL [place] # (Auto) (0.11-0.59) K/uL Eos # (Auto) (0-0.5) K/uL Baso # (Auto) (0-0.2) K/uL PT (9.0-12.0) Seconds INR (0.9-1.1) APTT (21.0-31.0) Seconds PTT Ratio ABG pH (7.35-7.45) ABG pCO2 (35-46) mmHg ABG pO2 (80-95) mmHg ABG HCO3 (19-24) mmol/L ABG O2 Saturation (90-95) % ABG Base Excess (-9-1.8) mEq/L Tito Test (Pos) VBG pH (7.36-7.41) Barometric Pressure mm/Hg Oxygen Given Sodium (136-145) mmol/L Potassium (3.5-5.1) mmol/L Chloride (98-107) mmol/L Carbon Dioxide (21-32) mmol/L Anion Gap (3-11) BUN (7-18) mg/dl Creatinine (0.6-1.4) mg/dl Est Cr Clr Drug Dosing ml/min Est GFR ( Amer) Est GFR (Non-Af Amer) BUN/Creatinine Ratio (10-20) Glucose (70-99) mg/dl POC Glucose 200 H 214 H 216 H (70-99) mg/dl Estimat Average Glucose mg/dl Hemoglobin A1c (4.5-5.6) % Lactate (0.4-2.0) mmol/L Calcium (8.5-10.1) mg/dl Phosphorus (2.5-4.9) mg/dl Magnesium (1.8-2.4) mg/dl Total Bilirubin (0.2-1) mg/dl AST (15-37) U/L ALT (12-78) U/L Alkaline Phosphatase (45-117) U/L Total Protein (6.4-8.2) gm/dl Albumin (3.4-5.0) gm/dl Globulin (2.5-4.0) gm/dl Albumin/Globulin Ratio (0.9-2) Lipase (73-393) U/L Beta-Hydroxybutyric Acd (0.2-2.81) mg/dl TSH (0.300-4.500) uIu/ml Urine Color Urine Appearance (Clear) Urine pH (4.5-7.5) Ur Specific [place] (1.000-1.030) Urine Protein (Negative) Urine Glucose (UA) (Negative) Urine Ketones (Negative) Urine Blood (Negative) Urine Nitrite (Negative) Urine Bilirubin (Negative) Urine Urobilinogen (Negative) Ur Leukocyte Esterase (Negative) Urine WBC (Auto) (0-5) /hpf Urine RBC (Auto) (0-4) /hpf U Hyaline Cast (Auto) (0-5) /lpf U Epithel Cells (Auto) (0-5) /lpf Urine Bacteria (Auto) (Negative) Nasal Screen MRSA (PCR) (Negative) 07/09/19 07/09/19 07/09/19 Range/Units 06:06 06:06 06:06 WBC (4.8-10.8) K/uL RBC (4.7-6.1) M/uL Hgb (14.0-18.0) g/dL Hct (42-52) % MCV (80-100) fL MCH (25-34) pg MCHC (32-36) g/dL RDW Std Deviation (36.4-46.3) fL RDW Coeff of Edie (11.5-14.5) % Plt Count (130-400) K/uL MPV (7.4-10.4) fL Immature Gran % (Auto) % Neut % (Auto) % Lymph % (Auto) % [place] % (Auto) % Eos % (Auto) % Baso % (Auto) % Immature Gran # (Auto) (0.00-0.02) K/uL Neut # (Auto) (1.4-6.5) K/uL Lymph # (Auto) (1.2-3.4) K/uL [place] # (Auto) (0.11-0.59) K/uL Eos # (Auto) (0-0.5) K/uL Baso # (Auto) (0-0.2) K/uL PT (9.0-12.0) Seconds INR (0.9-1.1) APTT (21.0-31.0) Seconds PTT Ratio ABG pH (7.35-7.45) ABG pCO2 (35-46) mmHg ABG pO2 (80-95) mmHg ABG HCO3 (19-24) mmol/L ABG O2 Saturation (90-95) % ABG Base Excess (-9-1.8) mEq/L Tito Test (Pos) VBG pH 7.23 L (7.36-7.41) Barometric Pressure mm/Hg Oxygen Given Sodium (136-145) mmol/L Potassium (3.5-5.1) mmol/L Chloride (98-107) mmol/L Carbon Dioxide (21-32) mmol/L Anion Gap (3-11) BUN (7-18) mg/dl Creatinine (0.6-1.4) mg/dl Est Cr Clr Drug Dosing ml/min Est GFR ( Amer) Est GFR (Non-Af Amer) BUN/Creatinine Ratio (10-20) Glucose (70-99) mg/dl POC Glucose (70-99) mg/dl Estimat Average Glucose 283 mg/dl Hemoglobin A1c 11.5 H (4.5-5.6) % Lactate (0.4-2.0) mmol/L Calcium (8.5-10.1) mg/dl Phosphorus (2.5-4.9) mg/dl Magnesium (1.8-2.4) mg/dl Total Bilirubin (0.2-1) mg/dl AST (15-37) U/L ALT (12-78) U/L Alkaline Phosphatase (45-117) U/L Total Protein (6.4-8.2) gm/dl Albumin (3.4-5.0) gm/dl Globulin (2.5-4.0) gm/dl Albumin/Globulin Ratio (0.9-2) Lipase (73-393) U/L Beta-Hydroxybutyric Acd (0.2-2.81) mg/dl TSH 3.430 (0.300-4.500) uIu/ml Urine Color Urine Appearance (Clear) Urine pH (4.5-7.5) Ur Specific [place] (1.000-1.030) Urine Protein (Negative) Urine Glucose (UA) (Negative) Urine Ketones (Negative) Urine Blood (Negative) Urine Nitrite (Negative) Urine Bilirubin (Negative) Urine Urobilinogen (Negative) Ur Leukocyte Esterase (Negative) Urine WBC (Auto) (0-5) /hpf Urine RBC (Auto) (0-4) /hpf U Hyaline Cast (Auto) (0-5) /lpf U Epithel Cells (Auto) (0-5) /lpf Urine Bacteria (Auto) (Negative) Nasal Screen MRSA (PCR) (Negative) 07/09/19 07/09/19 07/09/19 Range/Units 06:06 06:06 05:38 WBC 12.47 H (4.8-10.8) K/uL RBC 5.42 (4.7-6.1) M/uL Hgb 15.6 (14.0-18.0) g/dL Hct 44.5 (42-52) % MCV 82.1 (80-100) fL MCH 28.8 (25-34) pg MCHC 35.1 (32-36) g/dL RDW Std Deviation 40.4 (36.4-46.3) fL RDW Coeff of Edie 13.5 (11.5-14.5) % Plt Count 305 (130-400) K/uL MPV 9.7 (7.4-10.4) fL Immature Gran % (Auto) 0.3 % Neut % (Auto) 71.4 % Lymph % (Auto) 12.8 % [place] % (Auto) 15.3 % Eos % (Auto) 0.0 % Baso % (Auto) 0.2 % Immature Gran # (Auto) 0.04 H (0.00-0.02) K/uL Neut # (Auto) 8.91 H (1.4-6.5) K/uL Lymph # (Auto) 1.59 (1.2-3.4) K/uL [place] # (Auto) 1.91 H (0.11-0.59) K/uL Eos # (Auto) 0.00 (0-0.5) K/uL Baso # (Auto) 0.02 (0-0.2) K/uL PT (9.0-12.0) Seconds INR (0.9-1.1) APTT (21.0-31.0) Seconds PTT Ratio ABG pH (7.35-7.45) ABG pCO2 (35-46) mmHg ABG pO2 (80-95) mmHg ABG HCO3 (19-24) mmol/L ABG O2 Saturation (90-95) % ABG Base Excess (-9-1.8) mEq/L Tito Test (Pos) VBG pH (7.36-7.41) Barometric Pressure mm/Hg Oxygen Given Sodium 134 L (136-145) mmol/L Potassium 4.1 D (3.5-5.1) mmol/L Chloride 102 (98-107) mmol/L Carbon Dioxide 15 L (21-32) mmol/L Anion Gap 17.0 H (3-11) BUN 11 (7-18) mg/dl Creatinine 1.25 (0.6-1.4) mg/dl Est Cr Clr Drug Dosing 108.9 ml/min Est GFR ( Amer) 89.0 Est GFR (Non-Af Amer) 76.8 BUN/Creatinine Ratio 8.8 L (10-20) Glucose 184 H (70-99) mg/dl POC Glucose 158 H (70-99) mg/dl Estimat Average Glucose mg/dl Hemoglobin A1c (4.5-5.6) % Lactate (0.4-2.0) mmol/L Calcium 9.0 (8.5-10.1) mg/dl Phosphorus 2.7 (2.5-4.9) mg/dl Magnesium 2.0 (1.8-2.4) mg/dl Total Bilirubin (0.2-1) mg/dl AST (15-37) U/L ALT (12-78) U/L Alkaline Phosphatase (45-117) U/L Total Protein (6.4-8.2) gm/dl Albumin (3.4-5.0) gm/dl Globulin (2.5-4.0) gm/dl Albumin/Globulin Ratio (0.9-2) Lipase (73-393) U/L Beta-Hydroxybutyric Acd (0.2-2.81) mg/dl TSH (0.300-4.500) uIu/ml Urine Color Urine Appearance (Clear) Urine pH (4.5-7.5) Ur Specific [place] (1.000-1.030) Urine Protein (Negative) Urine Glucose (UA) (Negative) Urine Ketones (Negative) Urine Blood (Negative) Urine Nitrite (Negative) Urine Bilirubin (Negative) Urine Urobilinogen (Negative) Ur Leukocyte Esterase (Negative) Urine WBC (Auto) (0-5) /hpf Urine RBC (Auto) (0-4) /hpf U Hyaline Cast (Auto) (0-5) /lpf U Epithel Cells (Auto) (0-5) /lpf Urine Bacteria (Auto) (Negative) Nasal Screen MRSA (PCR) (Negative) 07/09/19 07/09/19 07/09/19 Range/Units 04:44 04:35 02:48 WBC (4.8-10.8) K/uL RBC (4.7-6.1) M/uL Hgb (14.0-18.0) g/dL Hct (42-52) % MCV (80-100) fL MCH (25-34) pg MCHC (32-36) g/dL RDW Std Deviation (36.4-46.3) fL RDW Coeff of Edie (11.5-14.5) % Plt Count (130-400) K/uL MPV (7.4-10.4) fL Immature Gran % (Auto) % Neut % (Auto) % Lymph % (Auto) % [place] % (Auto) % Eos % (Auto) % Baso % (Auto) % Immature Gran # (Auto) (0.00-0.02) K/uL Neut # (Auto) (1.4-6.5) K/uL Lymph # (Auto) (1.2-3.4) K/uL [place] # (Auto) (0.11-0.59) K/uL Eos # (Auto) (0-0.5) K/uL Baso # (Auto) (0-0.2) K/uL PT (9.0-12.0) Seconds INR (0.9-1.1) APTT (21.0-31.0) Seconds PTT Ratio ABG pH (7.35-7.45) ABG pCO2 (35-46) mmHg ABG pO2 (80-95) mmHg ABG HCO3 (19-24) mmol/L ABG O2 Saturation (90-95) % ABG Base Excess (-9-1.8) mEq/L Tito Test (Pos) VBG pH (7.36-7.41) Barometric Pressure mm/Hg Oxygen Given Sodium (136-145) mmol/L Potassium (3.5-5.1) mmol/L Chloride (98-107) mmol/L Carbon Dioxide (21-32) mmol/L Anion Gap (3-11) BUN (7-18) mg/dl Creatinine (0.6-1.4) mg/dl Est Cr Clr Drug Dosing ml/min Est GFR ( Amer) Est GFR (Non-Af Amer) BUN/Creatinine Ratio (10-20) Glucose (70-99) mg/dl POC Glucose 221 H 275 H (70-99) mg/dl Estimat Average Glucose mg/dl Hemoglobin A1c (4.5-5.6) % Lactate (0.4-2.0) mmol/L Calcium (8.5-10.1) mg/dl Phosphorus (2.5-4.9) mg/dl Magnesium (1.8-2.4) mg/dl Total Bilirubin (0.2-1) mg/dl AST (15-37) U/L ALT (12-78) U/L Alkaline Phosphatase (45-117) U/L Total Protein (6.4-8.2) gm/dl Albumin (3.4-5.0) gm/dl Globulin (2.5-4.0) gm/dl Albumin/Globulin Ratio (0.9-2) Lipase (73-393) U/L Beta-Hydroxybutyric Acd (0.2-2.81) mg/dl TSH (0.300-4.500) uIu/ml Urine Color Urine Appearance (Clear) Urine pH (4.5-7.5) Ur Specific [place] (1.000-1.030) Urine Protein (Negative) Urine Glucose (UA) (Negative) Urine Ketones (Negative) Urine Blood (Negative) Urine Nitrite (Negative) Urine Bilirubin (Negative) Urine Urobilinogen (Negative) Ur Leukocyte Esterase (Negative) Urine WBC (Auto) (0-5) /hpf Urine RBC (Auto) (0-4) /hpf U Hyaline Cast (Auto) (0-5) /lpf U Epithel Cells (Auto) (0-5) /lpf Urine Bacteria (Auto) (Negative) Nasal Screen MRSA (PCR) Negative (Negative) 07/09/19 07/09/19 07/09/19 Range/Units 02:41 02:41 00:32 WBC (4.8-10.8) K/uL RBC (4.7-6.1) M/uL Hgb (14.0-18.0) g/dL Hct (42-52) % MCV (80-100) fL MCH (25-34) pg MCHC (32-36) g/dL RDW Std Deviation (36.4-46.3) fL RDW Coeff of Edie (11.5-14.5) % Plt Count (130-400) K/uL MPV (7.4-10.4) fL Immature Gran % (Auto) % Neut % (Auto) % Lymph % (Auto) % [place] % (Auto) % Eos % (Auto) % Baso % (Auto) % Immature Gran # (Auto) (0.00-0.02) K/uL Neut # (Auto) (1.4-6.5) K/uL Lymph # (Auto) (1.2-3.4) K/uL [place] # (Auto) (0.11-0.59) K/uL Eos # (Auto) (0-0.5) K/uL Baso # (Auto) (0-0.2) K/uL PT (9.0-12.0) Seconds INR (0.9-1.1) APTT (21.0-31.0) Seconds PTT Ratio ABG pH 7.22 L (7.35-7.45) ABG pCO2 27 L (35-46) mmHg ABG pO2 69 L (80-95) mmHg ABG HCO3 11 L (19-24) mmol/L ABG O2 Saturation 93.6 (90-95) % ABG Base Excess -15.4 L (-9-1.8) mEq/L Tito Test Pos (Pos) VBG pH (7.36-7.41) Barometric Pressure 727.6 mm/Hg Oxygen Given ROOM AIR Sodium 131 L (136-145) mmol/L Potassium 4.9 (3.5-5.1) mmol/L Chloride 101 (98-107) mmol/L Carbon Dioxide 12 L (21-32) mmol/L Anion Gap 18.0 H (3-11) BUN 11 (7-18) mg/dl Creatinine 1.22 (0.6-1.4) mg/dl Est Cr Clr Drug Dosing 111.9 ml/min Est GFR ( Amer) 91.6 Est GFR (Non-Af Amer) 79.1 BUN/Creatinine Ratio 8.8 L (10-20) Glucose 298 H (70-99) mg/dl POC Glucose 305 H* (70-99) mg/dl Estimat Average Glucose mg/dl Hemoglobin A1c (4.5-5.6) % Lactate (0.4-2.0) mmol/L Calcium 8.3 L (8.5-10.1) mg/dl Phosphorus 2.9 (2.5-4.9) mg/dl Magnesium 2.0 (1.8-2.4) mg/dl Total Bilirubin (0.2-1) mg/dl AST (15-37) U/L ALT (12-78) U/L Alkaline Phosphatase (45-117) U/L Total Protein (6.4-8.2) gm/dl Albumin (3.4-5.0) gm/dl Globulin (2.5-4.0) gm/dl Albumin/Globulin Ratio (0.9-2) Lipase (73-393) U/L Beta-Hydroxybutyric Acd (0.2-2.81) mg/dl TSH (0.300-4.500) uIu/ml Urine Color Urine Appearance (Clear) Urine pH (4.5-7.5) Ur Specific [place] (1.000-1.030) Urine Protein (Negative) Urine Glucose (UA) (Negative) Urine Ketones (Negative) Urine Blood (Negative) Urine Nitrite (Negative) Urine Bilirubin (Negative) Urine Urobilinogen (Negative) Ur Leukocyte Esterase (Negative) Urine WBC (Auto) (0-5) /hpf Urine RBC (Auto) (0-4) /hpf U Hyaline Cast (Auto) (0-5) /lpf U Epithel Cells (Auto) (0-5) /lpf Urine Bacteria (Auto) (Negative) Nasal Screen MRSA (PCR) (Negative) 07/08/19 07/08/19 07/08/19 Range/Units 23:55 22:41 22:41 WBC (4.8-10.8) K/uL RBC (4.7-6.1) M/uL Hgb (14.0-18.0) g/dL Hct (42-52) % MCV (80-100) fL MCH (25-34) pg MCHC (32-36) g/dL RDW Std Deviation (36.4-46.3) fL RDW Coeff of Edie (11.5-14.5) % Plt Count (130-400) K/uL MPV (7.4-10.4) fL Immature Gran % (Auto) % Neut % (Auto) % Lymph % (Auto) % [place] % (Auto) % Eos % (Auto) % Baso % (Auto) % Immature Gran # (Auto) (0.00-0.02) K/uL Neut # (Auto) (1.4-6.5) K/uL Lymph # (Auto) (1.2-3.4) K/uL [place] # (Auto) (0.11-0.59) K/uL Eos # (Auto) (0-0.5) K/uL Baso # (Auto) (0-0.2) K/uL PT (9.0-12.0) Seconds INR (0.9-1.1) APTT (21.0-31.0) Seconds PTT Ratio ABG pH (7.35-7.45) ABG pCO2 (35-46) mmHg ABG pO2 (80-95) mmHg ABG HCO3 (19-24) mmol/L ABG O2 Saturation (90-95) % ABG Base Excess (-9-1.8) mEq/L Tito Test (Pos) VBG pH (7.36-7.41) Barometric Pressure mm/Hg Oxygen Given Sodium 129 L (136-145) mmol/L Potassium 4.5 (3.5-5.1) mmol/L Chloride 93 L (98-107) mmol/L Carbon Dioxide 12 L (21-32) mmol/L Anion Gap 24.0 H (3-11) BUN 13 (7-18) mg/dl Creatinine 1.49 H (0.6-1.4) mg/dl Est Cr Clr Drug Dosing 91.6 ml/min Est GFR ( Amer) 72.0 Est GFR (Non-Af Amer) 62.1 BUN/Creatinine Ratio 8.9 L (10-20) Glucose 361 H* (70-99) mg/dl POC Glucose (70-99) mg/dl Estimat Average Glucose mg/dl Hemoglobin A1c (4.5-5.6) % Lactate 1.6 (0.4-2.0) mmol/L Calcium 9.5 (8.5-10.1) mg/dl Phosphorus (2.5-4.9) mg/dl Magnesium (1.8-2.4) mg/dl Total Bilirubin 0.5 (0.2-1) mg/dl AST 16 (15-37) U/L ALT 19 (12-78) U/L Alkaline Phosphatase 160 H (45-117) U/L Total Protein 9.5 H (6.4-8.2) gm/dl Albumin 4.0 (3.4-5.0) gm/dl Globulin 5.5 H (2.5-4.0) gm/dl Albumin/Globulin Ratio 0.7 L (0.9-2) Lipase 30 L (73-393) U/L Beta-Hydroxybutyric Acd 88.42 H (0.2-2.81) mg/dl TSH (0.300-4.500) uIu/ml Urine Color Yellow Urine Appearance Clear (Clear) Urine pH 5.0 (4.5-7.5) Ur Specific [place] 1.031 H (1.000-1.030) Urine Protein 2+ H (Negative) Urine Glucose (UA) 3+ H (Negative) Urine Ketones 4+ H (Negative) Urine Blood 1+ H (Negative) Urine Nitrite Negative (Negative) Urine Bilirubin Negative (Negative) Urine Urobilinogen Negative (Negative) Ur Leukocyte Esterase Negative (Negative) Urine WBC (Auto) 1-5 (0-5) /hpf Urine RBC (Auto) 0-4 (0-4) /hpf U Hyaline Cast (Auto) 5-10 H (0-5) /lpf U Epithel Cells (Auto) 10-20 H (0-5) /lpf Urine Bacteria (Auto) Negative (Negative) Nasal Screen MRSA (PCR) (Negative) 02/27/20 02/27/20 02/27/20 Range/Units 22:41 22:41 22:40 WBC 14.21 H (4.8-10.8) K/uL RBC 5.90 (4.7-6.1) M/uL Hgb 17.0 (14.0-18.0) g/dL Hct 49.0 (42-52) % MCV 83.1 (80-100) fL MCH 28.8 (25-34) pg MCHC 34.7 (32-36) g/dL RDW Std Deviation 39.6 (36.4-46.3) fL RDW Coeff of Edie 13.3 (11.5-14.5) % Plt Count 302 (130-400) K/uL MPV 10.2 (7.4-10.4) fL Immature Gran % (Auto) 0.2 % Neut % (Auto) 82.6 % Lymph % (Auto) 10.1 % [place] % (Auto) 7.0 % Eos % (Auto) 0.0 % Baso % (Auto) 0.1 % Immature Gran # (Auto) 0.03 H (0.00-0.02) K/uL Neut # (Auto) 11.73 H (1.4-6.5) K/uL Lymph # (Auto) 1.44 (1.2-3.4) K/uL [place] # (Auto) 0.99 H (0.11-0.59) K/uL Eos # (Auto) 0.00 (0-0.5) K/uL Baso # (Auto) 0.02 (0-0.2) K/uL PT 10.5 (9.0-12.0) Seconds INR 1.0 (0.9-1.1) APTT 30.9 (21.0-31.0) Seconds PTT Ratio 1.1 ABG pH (7.35-7.45) ABG pCO2 (35-46) mmHg ABG pO2 (80-95) mmHg ABG HCO3 (19-24) mmol/L ABG O2 Saturation (90-95) % ABG Base Excess (-9-1.8) mEq/L Tito Test (Pos) VBG pH (7.36-7.41) Barometric Pressure mm/Hg Oxygen Given Sodium (136-145) mmol/L Potassium (3.5-5.1) mmol/L Chloride (98-107) mmol/L Carbon Dioxide (21-32) mmol/L Anion Gap (3-11) BUN (7-18) mg/dl Creatinine (0.6-1.4) mg/dl Est Cr Clr Drug Dosing ml/min Est GFR ( Amer) Est GFR (Non-Af Amer) BUN/Creatinine Ratio (10-20) Glucose (70-99) mg/dl POC Glucose 363 H* (70-99) mg/dl Estimat Average Glucose mg/dl Hemoglobin A1c (4.5-5.6) % Lactate (0.4-2.0) mmol/L Calcium (8.5-10.1) mg/dl Phosphorus (2.5-4.9) mg/dl Magnesium (1.8-2.4) mg/dl Total Bilirubin (0.2-1) mg/dl AST (15-37) U/L ALT (12-78) U/L Alkaline Phosphatase (45-117) U/L Total Protein (6.4-8.2) gm/dl Albumin (3.4-5.0) gm/dl Globulin (2.5-4.0) gm/dl Albumin/Globulin Ratio (0.9-2) Lipase (73-393) U/L Beta-Hydroxybutyric Acd (0.2-2.81) mg/dl TSH (0.300-4.500) uIu/ml Urine Color Urine Appearance (Clear) Urine pH (4.5-7.5) Ur Specific [place] (1.000-1.030) Urine Protein (Negative) Urine Glucose (UA) (Negative) Urine Ketones (Negative) Urine Blood (Negative) Urine Nitrite (Negative) Urine Bilirubin (Negative) Urine Urobilinogen (Negative) Ur Leukocyte Esterase (Negative) Urine WBC (Auto) (0-5) /hpf Urine RBC (Auto) (0-4) /hpf U Hyaline Cast (Auto) (0-5) /lpf U Epithel Cells (Auto) (0-5) /lpf Urine Bacteria (Auto) (Negative) Nasal Screen MRSA (PCR) (Negative) Resident Activity Tracking Resident Involvement: Resident Care Provided Care Provided: Adult Hospital Medicine (1) DKA (diabetic ketoacidoses) Diabetes mellitus complication detail: without coma Diabetes mellitus type: type 1 Qualified Code(s): E10.10 - Type 1 diabetes mellitus with ketoacidosis without coma
[2019-07-09 10:36] LABS: BUN Creatinine Ratio 6.3 (10-20); Calcium 8.7 mg/dl (8.5-10.1); Creatinine Clr Calc Pharmacy 97.9 ml/min; Est GFR (African American) 78.3; Est GFR (Non-African American) 67.5; Potassium 4.3 mmol/L (3.5-5.1)
[2019-07-09 10:37] LABS: Phosphorus 1.9 mg/dl (2.5-4.9)
[2019-07-09] MEDS ORDERED: POTASSIUM PHOS 3 MMOL/1 ML INFUSION IV STA (11:07)
[2019-07-09] MEDS ORDERED: SODIUM PHOSPHATE 3 MMOL/1 ML INFUSION IV STA (11:20)
[2019-07-09] MEDS ORDERED: SODIUM PHOSPHATE 30 MMOL in SODIUM CHLORIDE 0.9% 500 ML IV ONE (11:45)
[2019-07-09] MEDS: PROMETHAZINE HCL 6.25 MG in SODIUM CHLORIDE 0.9% 50 ML IV PRN ×2 (14:25→22:47)
[2019-07-09 15:02] LABS: Calcium 9.1 mg/dl (8.5-10.1); Creatinine Clr Calc Pharmacy 108.9 ml/min; Est GFR (Non-African American) 76.8; Magnesium 1.9 mg/dl (1.8-2.4); Potassium 3.9 mmol/L (3.5-5.1)
[2019-07-09 15:03] LABS: Phosphorus 2.1 mg/dl (2.5-4.9)
--- NOTE | 2019-07-09 15:32 | Pharmacy Report ---
Pharmacy Glycemic Short Note 2 - Date of Service July 09, 2019 - Glycemic Short BSG Results (Last 24 hours): 07/08/19 07/08/19 07/09/19 22:40 22:41 00:32 Glucose 361 H* POC Glucose 363 H* 305 H* 07/09/19 07/09/19 07/09/19 02:41 02:48 04:44 Glucose 298 H POC Glucose 275 H 221 H 07/09/19 07/09/19 07/09/19 05:38 06:06 07:12 Glucose 184 H POC Glucose 158 H 216 H 07/09/19 07/09/19 07/09/19 08:10 09:08 10:11 Glucose 210 H POC Glucose 214 H 200 H 07/09/19 07/09/19 07/09/19 10:55 11:57 13:13 Glucose POC Glucose 205 H 188 H 182 H 07/09/19 07/09/19 13:56 14:07 Glucose 167 H POC Glucose 165 H OUTPATIENT ANTIDIABETIC REGIMEN: * Lantus up to 50 units HS * Novolog scale, CR 1:5 with use up to 100 units/day * A1c 11.5% 07/09/2019 ASSESSMENT: * Mr. Lopez is a 29 yo with a history of type 1 diabetes, currently treated with lantus/novolog * Flu +, presenting in DKA, initial glucose 361, a gap 24, bicarb 12; UA p ositive for ketones and glucose * Started on insulin infusion, currently running at 5.8 units/hr * D5 + 20K @ 200 ml/hr, gap closing, a gap 13, bicarb 18, will continue insulin infusion until gap closed/bicarb normalized, then transition to subq PLAN FOR INPATIENT GLYCEMIC CONTROL: * Continuing insulin infusion per protocol until gap resolved * Goal range: 140-200 mg/dL
[2019-07-09 19:49] LABS: BUN Creatinine Ratio 6.8 (10-20); Calcium 8.9 mg/dl (8.5-10.1); Creatinine Clr Calc Pharmacy 113.4 ml/min; Est GFR (African American) 93.5; Est GFR (Non-African American) 80.7; Magnesium 1.8 mg/dl (1.8-2.4); Potassium 3.8 mmol/L (3.5-5.1)
[2019-07-09] MEDS: SCOPOLAMINE 1.5 MG TDSY TD SCH (21:16)
[2019-07-09] MEDS ORDERED: LORazepam 0.25 MG/0.5 ML VIAL IV STA (22:24)
[2019-07-09] MEDS ORDERED: PANTOprazole 40 MG in SYRINGE 0 ML IV SCH (22:30)
[2019-07-09 22:53] LABS: Hematocrit (blood only) 41.5 % (42-52); Hemoglobin 14.9 g/dL (14.0-18.0)
[2019-07-09 22:57] LABS: Calcium 8.5 mg/dl (8.5-10.1); Creatinine Clr Calc Pharmacy 118.3 ml/min; Est GFR (African American) 98.4; Est GFR (Non-African American) 84.9; Magnesium 1.7 mg/dl (1.8-2.4); Potassium 3.7 mmol/L (3.5-5.1)
[2019-07-09 23:05] LABS: Gastric Occult Blood Negative (Negative); pH Gastric Fluid 3
[2019-07-09 23:08] LABS: Phosphorus 1.6 mg/dl (2.5-4.9)
[2019-07-09] MEDS: CHECK SCOPOLAMINE PATCH PLACEMENT SCH (23:52)
[2019-07-10] MEDS ORDERED: POTASSIUM PHOS 3 MMOL/1 ML INFUSION IV STA (00:06)
[2019-07-10] MEDS ORDERED: POTASSIUM PHOSPHATE 15 MMOL in SODIUM CHLORIDE 0.9% 250 ML IV ONE (00:15)
[2019-07-10] MEDS: MAGNESIUM SULFATE / D5W 1 GM/100 ML BAG IV SCH ×2 (00:15→01:08)
[2019-07-10] MEDS ORDERED: INSULIN GLARGINE SOLOSTAR 100 UNITS/ML 3 ML PEN SC ONE ×2 (00:30→09:15)
[2019-07-10] MEDS: POTASSIUM CHLORIDE 20 MEQ in DEXTROSE 5% 1,000 ML IV SCH ×4 (01:00→16:43)
[2019-07-10] MEDS: INSULIN REGULAR 250 UNITS in SODIUM CHLORIDE 0.9% 247.5 ML IV SCH (03:25)
[2019-07-10] MEDS ORDERED: LORazepam 0.25 MG/0.5 ML VIAL IV PRN (04:14)
[2019-07-10 04:20] LABS: Basophils # (auto) 0.01 K/uL (0-0.2); Basophils % (auto) 0.1 %; Hematocrit (blood only) 41.6 % (42-52); Hemoglobin 15.1 g/dL (14.0-18.0); Immature Granulocytes # (auto) 0.02 K/uL (0.00-0.02); Immature Granulocytes % (auto) 0.2 %; Lymphocytes # (auto) 1.69 K/uL (1.2-3.4); Lymphocytes % (auto) 14.4 %; Mean Corpuscular Hemoglobin 28.9 pg (25-34); Mean Corpuscular Hgb Conc 36.3 g/dL (32-36); Mean Corpuscular Volume 79.7 fL (80-100); Mean Platelet Volume 9.6 fL (7.4-10.4); Monocytes # (auto) 1.63 K/uL (0.11-0.59); Monocytes % (auto) 13.9 %; Neutrophils # (auto) 8.35 K/uL (1.4-6.5); Neutrophils % (auto) 71.4 %; Platelet Count 289 K/uL (130-400); RDW Standard Deviation 37.6 fL (36.4-46.3); Red Blood Count 5.22 M/uL (4.7-6.1)
[2019-07-10 06:57] LABS: Basophils # (auto) 0.01 K/uL (0-0.2); Basophils % (auto) 0.1 %; Hematocrit (blood only) 41.7 % (42-52); Hemoglobin 15.2 g/dL (14.0-18.0); Immature Granulocytes # (auto) 0.03 K/uL (0.00-0.02); Immature Granulocytes % (auto) 0.2 %; Lymphocytes # (auto) 1.78 K/uL (1.2-3.4); Lymphocytes % (auto) 13.1 %; Mean Corpuscular Hemoglobin 29.1 pg (25-34); Mean Corpuscular Hgb Conc 36.5 g/dL (32-36); Mean Corpuscular Volume 79.7 fL (80-100); Mean Platelet Volume 9.3 fL (7.4-10.4); Neutrophils # (auto) 9.83 K/uL (1.4-6.5); Neutrophils % (auto) 72.6 %; Platelet Count 306 K/uL (130-400); RDW Coefficient of Variation 13.1 % (11.5-14.5); RDW Standard Deviation 37.9 fL (36.4-46.3); Red Blood Count 5.23 M/uL (4.7-6.1); White Blood Count 13.55 K/uL (4.8-10.8)
[2019-07-10] MEDS: BUDESONIDE 0.5 MG/2 ML VIAL (PULMICORT) NEB SCH ×2 (07:21→19:59)
[2019-07-10] MEDS: CHECK SCOPOLAMINE PATCH PLACEMENT SCH ×2 (07:32→15:35)
--- NOTE | 2019-07-10 07:32 | Hospitalist Progress Note ---
Date of Service July 10, 2019 Assessment & Plan (1) DKA (diabetic ketoacidoses): Patient is a 29-year-old male with a past medical history of obesity, hypothyroidism/Elias's thyroiditis, poorly controlled type 1 diabetes, who presents to the emergency department for evaluation of hyperglycemia, nausea and vomiting in the setting of recent influenza infection and was diagnosed with diabetic ketoacidosis. 1. Diabetic ketoacidosis - Patient is a poorly controlled type I diabetic, most recent A1c was 11.2. Patient did not change his insulin regimen while on the Tamiflu, and continued to feel nauseous and have vomiting episodes until he realized his sugar was in the 400s. Glucose in the emergency department was 363, with a beta hydroxybutyrate of 88 and anion gap of 24. -At this point in time Gap has closed and patient has been transitioned to subcu insulin. Continue to trend BMPs monitor neurological status. - Antiemetic regimen: Zofran 4mg IV Q4H, Compazine 6.25 mg Q6 2. Influenza - Symptoms started this past Friday was evaluated on the by nurse practitioner started him on Tamiflu. - Tamiflu DC'd as patient not tolerating PO well. May also be a contributing factor to worsening GI discomfort and nausea. - IV Tylenol for fever/pain - Duo nebs and budesonide for respiratory - Flutter valve/incentive spirometry - Chest PT d/c as patient has been refusing it. 3.Uncontrolled diabetes type 1 - A1c 11.2 - patient resistant to diabetes education per nursing - will continue attempts at education 4. Hx Elias's thyroiditis -Continue levothyroxine 150 mcg p.o. every morning 5. Dyslipidemia - likely secondary to uncontrolled DM1 - would benefit from statin for ACS protection 6. Hypophosphatemia, Hypomagnesemia - Repleted with 2g of Mag and 15mmol K-Phos - Current Mag 2.4, Phos 2.1 FEN/GI: Full liquid as tolerated DVT: Ambulation, SCDs GI Ppx: not indicated Code: Full Code 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, with long-term current use of insulin: (4) Elias's thyroiditis: (5) Dyslipidemia: Admission and Anticipated Discharge Date Admission Date: July 09, 2019 Supervising Physician Co-Signing Physician Notes I saw the patient with the resident physician and confirmed rivas portions of the history and physical examination. Upon examination, the patient is unfortunately still with intractable nausea and vomiting. Has had several episodes of a biliary type emesis throughout the night and into this morning. Blood pressure is variable but overall improved, 128/73 at best and 161/89 at worst, this shift. Heart rate 80, respiratory 18, temperature 36.7 F Pulse oximetry 97% on room air He looks uncomfortable secondary to the nausea; he does have some epigastric and upper abdominal pain, right sided predominantly, with tenderness with palpation of the right upper quadrant. Bowel sounds are noted. Blood cell count 13.55, hemoglobin 15.2. Sodium 131, potassium 3.6, BUN 5, creatinine 1.24, glucose 166. Alkaline phosphatase 160 (07/08) Diabetic ketoacidosis Influenza B Intractable nausea and vomiting Differential diagnosis includes diabetic gastroparesis, gastrointestinal illness, Tamiflu side effect, obstruction, cholecystitis Hypothyroidism Place NG tube KUB Ultrasound right upper quadrant Recheck LFTs in am Continue antiemetics, although I am hopeful that the NG tube will provide him some relief He will be transferred to the floor today Subjective Patient seen at the bedside this morning. Easily awoken, but very tired appearing. States that he was still feeling nauseous and was "vomiting all night." Review of Systems Constitutional: + body aches and + fatigue; no fever, no chills and no increased appetite Respiratory: no cough and no dyspnea Cardiovascular: no chest pain, no dyspnea and no edema Gastrointestinal: + nausea and + vomiting; no abdominal pain, no constipation and no diarrhea/loose stools Genitourinary: no dysuria Physical Exam Constitutional: + ill appearing and cooperative ENMT: external ear and nose normal, oropharynx normal Neck: normal visual inspection Respiratory: normal respiratory effort and able to speak in complete sentences; no respiratory distress, no labored breathing, no retractions, no cough and no audible wheezes Auscultation: lungs clear to auscultation bilaterally; no crackles, no rales, no rhonchi and no wheezes Cardiovascular: Rate/Rhythm: regular rate and regular rhythm Heart Sounds: normal S1 and normal S2; no gallop, no murmur and no cardiac rub Vessels: posterior tibial pulses present Extremities: no pedal edema and no edema Gastrointestinal (Abdomen): Inspection/Auscultation: abdomen normal to inspection and normal bowel sounds; abdomen not distended Percussion/Palpation: abdomen soft; abdomen nontender, no guarding, abdomen not rigid and no abdominal mass Results & Data ([facility]) Vital Signs (Past 12 Hours) Vital Signs Temp Pulse Pulse Resp BP Pulse Ox 07/10/19 06:00 78 19 158/85 H 93 07/10/19 05:00 74 17 150/74 H 95 07/10/19 04:00 85 18 155/78 H 97 07/10/19 03:00 77 20 127/65 95 07/10/19 02:00 79 19 150/74 H 95 07/10/19 01:00 81 21 140/69 95 07/10/19 00:00 36.8 C 73 20 159/78 H 93 07/09/19 23:00 76 23 128/66 94 07/09/19 22:07 79 20 94 07/09/19 22:00 77 20 186/90 H 94 07/09/19 21:01 77 16 96 07/09/19 21:00 82 19 156/93 H 95 07/09/19 20:00 37.1 C 88 21 168/89 H 96 Laboratory Results Abnormal lab results 07/09/19 07/09/19 07/09/19 Range/Units 11:57 13:13 13:56 WBC (4.8-10.8) K/uL Hct (42-52) % MCV (80-100) fL MCHC (32-36) g/dL Immature Gran # (Auto) (0.00-0.02) K/uL Neut # (Auto) (1.4-6.5) K/uL [place] # (Auto) (0.11-0.59) K/uL VBG pH (7.36-7.41) Sodium (136-145) mmol/L Carbon Dioxide (21-32) mmol/L Anion Gap (3-11) BUN (7-18) mg/dl BUN/Creatinine Ratio (10-20) Glucose (70-99) mg/dl POC Glucose 188 H 182 H 165 H (70-99) mg/dl Phosphorus (2.5-4.9) mg/dl Magnesium (1.8-2.4) mg/dl 07/09/19 07/09/19 07/09/19 Range/Units 14:07 14:07 16:05 WBC (4.8-10.8) K/uL Hct (42-52) % MCV (80-100) fL MCHC (32-36) g/dL Immature Gran # (Auto) (0.00-0.02) K/uL Neut # (Auto) (1.4-6.5) K/uL [place] # (Auto) (0.11-0.59) K/uL VBG pH 7.29 L (7.36-7.41) Sodium 132 L (136-145) mmol/L Carbon Dioxide 18 L (21-32) mmol/L Anion Gap 13.0 H (3-11) BUN (7-18) mg/dl BUN/Creatinine Ratio 7.0 L (10-20) Glucose 167 H (70-99) mg/dl POC Glucose 160 H (70-99) mg/dl Phosphorus 2.1 L (2.5-4.9) mg/dl Magnesium (1.8-2.4) mg/dl 07/09/19 07/09/19 07/09/19 Range/Units 18:02 18:20 19:06 WBC (4.8-10.8) K/uL Hct (42-52) % MCV (80-100) fL MCHC (32-36) g/dL Immature Gran # (Auto) (0.00-0.02) K/uL Neut # (Auto) (1.4-6.5) K/uL [place] # (Auto) (0.11-0.59) K/uL VBG pH 7.28 L (7.36-7.41) Sodium (136-145) mmol/L Carbon Dioxide (21-32) mmol/L Anion Gap (3-11) BUN (7-18) mg/dl BUN/Creatinine Ratio (10-20) Glucose (70-99) mg/dl POC Glucose 138 H 147 H (70-99) mg/dl Phosphorus (2.5-4.9) mg/dl Magnesium (1.8-2.4) mg/dl 07/09/19 07/09/19 07/09/19 Range/Units 19:23 19:57 20:57 WBC (4.8-10.8) K/uL Hct (42-52) % MCV (80-100) fL MCHC (32-36) g/dL Immature Gran # (Auto) (0.00-0.02) K/uL Neut # (Auto) (1.4-6.5) K/uL [place] # (Auto) (0.11-0.59) K/uL VBG pH (7.36-7.41) Sodium 131 L (136-145) mmol/L Carbon Dioxide (21-32) mmol/L Anion Gap (3-11) BUN (7-18) mg/dl BUN/Creatinine Ratio 6.8 L (10-20) Glucose 152 H (70-99) mg/dl POC Glucose 172 H 158 H (70-99) mg/dl Phosphorus 2.0 L (2.5-4.9) mg/dl Magnesium (1.8-2.4) mg/dl 07/09/19 07/09/19 07/09/19 Range/Units 22:29 22:30 23:02 WBC (4.8-10.8) K/uL Hct 41.5 L (42-52) % MCV (80-100) fL MCHC (32-36) g/dL Immature Gran # (Auto) (0.00-0.02) K/uL Neut # (Auto) (1.4-6.5) K/uL [place] # (Auto) (0.11-0.59) K/uL VBG pH (7.36-7.41) Sodium 131 L (136-145) mmol/L Carbon Dioxide (21-32) mmol/L Anion Gap (3-11) BUN (7-18) mg/dl BUN/Creatinine Ratio 7.0 L (10-20) Glucose 166 H (70-99) mg/dl POC Glucose 149 H (70-99) mg/dl Phosphorus 1.6 L (2.5-4.9) mg/dl Magnesium 1.7 L (1.8-2.4) mg/dl 07/10/19 07/10/19 07/10/19 Range/Units 00:57 02:48 04:05 WBC 11.70 H (4.8-10.8) K/uL Hct 41.6 L (42-52) % MCV 79.7 L (80-100) fL MCHC 36.3 H (32-36) g/dL Immature Gran # (Auto) (0.00-0.02) K/uL Neut # (Auto) 8.35 H (1.4-6.5) K/uL [place] # (Auto) 1.63 H (0.11-0.59) K/uL VBG pH (7.36-7.41) Sodium (136-145) mmol/L Carbon Dioxide (21-32) mmol/L Anion Gap (3-11) BUN (7-18) mg/dl BUN/Creatinine Ratio (10-20) Glucose (70-99) mg/dl POC Glucose 170 H 180 H (70-99) mg/dl Phosphorus (2.5-4.9) mg/dl Magnesium (1.8-2.4) mg/dl 07/10/19 07/10/19 07/10/19 Range/Units 06:33 06:43 06:43 WBC 13.55 H (4.8-10.8) K/uL Hct 41.7 L (42-52) % MCV 79.7 L (80-100) fL MCHC 36.5 H (32-36) g/dL Immature Gran # (Auto) 0.03 H (0.00-0.02) K/uL Neut # (Auto) 9.83 H (1.4-6.5) K/uL [place] # (Auto) 1.90 H (0.11-0.59) K/uL VBG pH (7.36-7.41) Sodium 131 L (136-145) mmol/L Carbon Dioxide (21-32) mmol/L Anion Gap (3-11) BUN 5 L (7-18) mg/dl BUN/Creatinine Ratio 4.1 L (10-20) Glucose 166 H (70-99) mg/dl POC Glucose 165 H (70-99) mg/dl Phosphorus 2.1 L (2.5-4.9) mg/dl Magnesium (1.8-2.4) mg/dl 07/10/19 Range/Units 11:17 WBC (4.8-10.8) K/uL Hct (42-52) % MCV (80-100) fL MCHC (32-36) g/dL Immature Gran # (Auto) (0.00-0.02) K/uL Neut # (Auto) (1.4-6.5) K/uL [place] # (Auto) (0.11-0.59) K/uL VBG pH (7.36-7.41) Sodium (136-145) mmol/L Carbon Dioxide (21-32) mmol/L Anion Gap (3-11) BUN (7-18) mg/dl BUN/Creatinine Ratio (10-20) Glucose (70-99) mg/dl POC Glucose 172 H (70-99) mg/dl Phosphorus (2.5-4.9) mg/dl Magnesium (1.8-2.4) mg/dl Resident Activity Tracking Resident Involvement: Resident Care Provided Care Provided: Adult Hospital Medicine (1) DKA (diabetic ketoacidoses) Diabetes mellitus complication detail: without coma Diabetes mellitus type: type 1 Qualified Code(s): E10.10 - Type 1 diabetes mellitus with ketoacidosis without coma
[2019-07-10] MEDS: PROMETHAZINE HCL 6.25 MG in SODIUM CHLORIDE 0.9% 50 ML IV PRN (07:33)
[2019-07-10] MEDS: INSULIN ASPART 100 UNITS/ML 3 ML PEN SC SCH ×4 (07:33→20:57)
[2019-07-10 07:55] LABS: BUN Creatinine Ratio 4.1 (10-20); Creatinine Clr Calc Pharmacy 109.8 ml/min; Est GFR (African American) 89.9; Est GFR (Non-African American) 77.5; Magnesium 2.4 mg/dl (1.8-2.4); Potassium 3.6 mmol/L (3.5-5.1)
[2019-07-10 07:56] LABS: Phosphorus 2.1 mg/dl (2.5-4.9)
[2019-07-10] MEDS: ONDANSETRON INJ 2 MG/ML 2 ML VIAL IV PRN (09:46)
[2019-07-10] MEDS ORDERED: PROMETHAZINE HCL 25 MG in SODIUM CHLORIDE 0.9% 50 ML IV PRN (11:23)
--- NOTE | 2019-07-10 12:53 | Critical Care Progress Note ---
Date of Service July 10, 2019 Assessment & Plan (1) DKA (diabetic ketoacidoses): 29-year-old male with history of uncontrolled diabetes type 1 who presents to the emergency department in DKA following influenza B infection Neuro - [facility] ICU: Negative Alert and oriented x3 -Clinical exam reassuring for no evidence of cerebellar/infarct Cardiac - Normal sinus rhythm on monitor, continue monitor on telemetry Respiratory - Tachypneaimproving/resolved Influenza B -Discontinue Tamiflu secondary to intractable nausea and vomiting GI - Nausea and vomitingintractable -Zofran 8 mg IV every 8 as needed -First-line PRN medication -Phenergan 12.5 mg IV every 6 -Second line medication -Phenergan 10 mg IV every 6 hours -Third line medication as needed -Scopolamine patch -Ativan half milligram p.o. 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 HEME - H&H stable, monitor routine CBCs ID - Patient positive for influenza B, will continue Tamiflu and contact precautions Chest x-ray negative for acute process, UA negative for bacteria Lactate negative, afebrile No suspicion of bacterial infection at this time LINES/IV ACCESS - Peripheral IVs DVT PROPHYLAXIS - Patient not wearing SCDs -While ambulatory not ambulating enough I have ordered Lovenox given return of renal function Dispo: Stable for downgrade out of ICU, discussed with residency team (2) Influenza: (3) Elias's thyroiditis: (4) Hypothyroidism: (5) Vomiting: Subjective Persistent nausea and vomiting. Denies nausea and vomiting at other times, no history of taking hot showers to relieve nausea and vomiting. Review of Systems Review of Systems: Passing flatus, red-tinged emesis noted this was Kb roccult negative doubtful of Cesia-Bates tear Physical Exam Physical Exam: General: Alert. nontoxic. Skin: Warm, dry, evidence of poor wound healing and distal lower extremities, postinflammatory hyperpigmentation Head: Atraumatic Ears, nose, mouth and throat: airway patent, mucous membranes mildly dry Cardiovascular: Normal peripheral perfusion Respiratory: no respiratory distress Gastrointestinal: Non distended Musculoskeletal: No deformity Neuro: Cranial nerves II through XII grossly intact, negative Romberg, negative pronator drift, normal finger-nose, normal heel rosa Results & Data ([facility]) Vital Signs (Past 12 Hours) Vital Signs Temp Pulse Pulse Resp BP BP Pulse Ox 07/10/19 12:00 37.1 C 91 H 24 96 07/10/19 11:06 85 24 158/91 H 93 07/10/19 11:00 37.0 C 89 23 90 07/10/19 10:06 83 14 136/63 97 07/10/19 10:00 108 H 21 96 07/10/19 09:06 84 21 128/73 95 07/10/19 09:00 36.9 C 91 H 28 H 95 07/10/19 08:06 87 21 161/89 H 96 07/10/19 08:00 36.8 C 96 H 102 H 28 H 152/75 H 92 07/10/19 07:26 152/75 H 98 07/10/19 07:21 81 18 98 07/10/19 07:00 92 H 19 97 07/10/19 06:06 78 21 158/85 H 95 07/10/19 06:00 78 19 158/85 H 93 07/10/19 05:00 74 17 150/74 H 95 07/10/19 04:00 85 18 155/78 H 97 07/10/19 03:00 77 20 127/65 95 07/10/19 02:00 79 19 150/74 H 95 07/10/19 01:00 81 21 140/69 95 Coding Level of Care Code 56544 Subseq Hosp Care Lvl 3 Diagnoses DKA (diabetic ketoacidoses) E10.10 Diabetes mellitus complication detail: without coma Diabetes mellitus type: type 1 Influenza J11.1 Elias's thyroiditis E06.3 Hypothyroidism E03.9 Vomiting R11.2 Nausea presence: with nausea Vomiting Intractability: non-intractable Vomiting type: unspecified (1) DKA (diabetic ketoacidoses) Diabetes mellitus complication detail: without coma Diabetes mellitus type: type 1 Qualified Code(s): E10.10 - Type 1 diabetes mellitus with ketoacidosis without coma (2) Vomiting Nausea presence: with nausea Vomiting Intractability: non-intractable Vomiting type: unspecified Qualified Code(s): R11.2 - Nausea with vomiting, unspecified
[2019-07-10] MEDS ORDERED: LORazepam 0.5 MG TAB PO PRN (13:12)
[2019-07-10] MEDS ORDERED: ONDANSETRON INJ 2 MG/ML 2 ML VIAL IV PRN (13:15)
[2019-07-10] MEDS ORDERED: DiphenhydrAMINE HCL 50 MG/ML VIAL IV PRN (13:19)
--- NOTE | 2019-07-10 15:16 | Pharmacy Report ---
Pharmacy Glycemic Short Note 2 - Date of Service July 10, 2019 - Glycemic Short BSG Results (Last 24 hours): 07/09/19 07/09/19 07/09/19 16:05 18:02 18:20 Glucose Cancelled POC Glucose 160 H 138 H 07/09/19 07/09/19 07/09/19 19:06 19:23 19:57 Glucose 152 H POC Glucose 147 H 172 H 07/09/19 07/09/19 07/09/19 20:57 22:29 23:02 Glucose 166 H POC Glucose 158 H 149 H 07/10/19 07/10/19 07/10/19 00:57 02:48 06:33 Glucose POC Glucose 170 H 180 H 165 H 07/10/19 07/10/19 07/10/19 06:43 11:17 14:54 Glucose 166 H POC Glucose 172 H 158 H OUTPATIENT ANTIDIABETIC REGIMEN: * Lantus 50 units qHS * Novolog scale CF 35, CR 10 * A1c 11.5% 07/09/2019 ASSESSMENT: * Kannan has remained on an insulin drip overnight and throughout today * His labs showed DKA had resolved overnight so a one time dose of Lantus 50 units was given, with anticipation of transitioning to SQ today * As of this AM, BSGs were well controlled but insulin drip rates remained at 4.6 units/hr (equivalent to 110 units of insulin/day) * Kannan has remained on the dextrose IVFs at 200 cc/hr. No PO intake d/t continued nausea/vomiting. * I gave an additional 25 units of Lantus this AM but concerned about being too aggressive with no PO intake and patient being a type 1 diabetic. I did try to find out more insulin dosing info from him but was unable to obtain this d/t cognitive status. Dosing as per patient and outpatient records above. * D/w resident to see if dextrose IVFs could be somewhat decreased. These were decreased to 150 cc/hr ~1400 today. 07/09 * Mr. Lopez is a 29 yo with a history of type 1 diabetes, currently treated with lantus/novolog * Flu +, presenting in DKA, initial glucose 361, a gap 24, bicarb 12; UA positive for ketones and glucose * Started on insulin infusion, currently running at 5.8 units/hr * D5 + 20K @ 200 ml/hr, gap closing, a gap 13, bicarb 18, will continue insulin infusion until gap closed/bicarb normalized, then transition to subq PLAN FOR INPATIENT GLYCEMIC CONTROL: * Continue insulin infusion with plan to eventually transition to SQ once drip rates decrease * Goal range 110-180 mg/dL * Lantus 25 units this AM, additional 25-50 units with dinner depending on insulin drip rates * Once insulin drip rates are < 2 units/hr, can discontinue insulin drip * Then start Novolog goal 110-140, CF 25, CR 8
--- NOTE | 2019-07-10 15:31 | XRay Report ---
KUB HISTORY: Acute vomiting intractable vomiting, ?obstruction COMPARISON: Chest radiograph 07/08/2019 FINDINGS: The bowel gas pattern is non-obstructive. Enteric tube projects of the upper abdomen, dista l tip projected superiorly in the expected location of the gastric fundus. Air-filled loop of large b owel projects over the central abdomen. There is no organomegaly. No renal calculi. No ureteral calc aston. No pneumoperitoneum or pneumatosis. No fracture. IMPRESSION: 1. Nonobstructive bowel gas pattern. 2. Distal tip of enteric tube projects superiorly in the expected location of the gastric fundus. ACT 112: Negative or not required by law. The above report was generated using voice recognition software. It may contain grammatical, syntax o r spelling errors. Electronically signed by: Roly Velasquez M.D. 07/10/2019 3:30 PM
[2019-07-10] MEDS: ondansetron HCL 8 MG in DEXTROSE 5% 50 ML IV PRN (16:47)
[2019-07-10] MEDS: INSULIN GLARGINE SOLOSTAR 100 UNITS/ML 3 ML PEN SC SCH (17:31)
[2019-07-10] MEDS: PROMETHAZINE HCL 12.5 MG in SODIUM CHLORIDE 0.9% 50 ML IV PRN (20:29)
--- NOTE | 2019-07-10 23:34 | Billing Data ---
Date of Service July 10, 2019 Coding Level of Care Code Critical Care 1st - mins
[2019-07-11] MEDS: POTASSIUM CHLORIDE 20 MEQ in DEXTROSE 5% 1,000 ML IV SCH ×2 (00:12→08:25)
[2019-07-11] MEDS: CHECK SCOPOLAMINE PATCH PLACEMENT SCH ×4 (00:14→23:48)
[2019-07-11] MEDS: INSULIN ASPART 100 UNITS/ML 3 ML PEN SC SCH ×6 (02:59→23:50)
[2019-07-11 06:05] LABS: BUN Creatinine Ratio 4.3 (10-20); Calcium 8.9 mg/dl (8.5-10.1); Creatinine Clr Calc Pharmacy 144.8 ml/min; Est GFR (African American) 125.6; Est GFR (Non-African American) 108.4; Magnesium 1.8 mg/dl (1.8-2.4); Potassium 3.7 mmol/L (3.5-5.1)
[2019-07-11 06:06] LABS: Phosphorus 1.9 mg/dl (2.5-4.9)
[2019-07-11 06:22] LABS: Bilirubin,Total 0.5 mg/dl (0.2-1); Total Protein 7.7 gm/dl (6.4-8.2)
[2019-07-11 06:36] LABS: Bilirubin Direct 0.2 mg/dl (0-0.2)
[2019-07-11] MEDS ORDERED: INSULIN GLARGINE SOLOSTAR 100 UNITS/ML 3 ML PEN SC ONE (07:30)
[2019-07-11] MEDS: ENOXAPARIN INJ 40 MG/0.4 ML SYR SQ SCH (07:31)
[2019-07-11] MEDS ORDERED: D5W AND NSS 1,000 ML IV SCH (07:45)
[2019-07-11] MEDS: BUDESONIDE 0.5 MG/2 ML VIAL (PULMICORT) NEB SCH ×2 (07:47→19:29)
--- NOTE | 2019-07-11 09:29 | Ultrasound Report ---
US liver HISTORY: 29 years-old Male intractable vomiting, abdominal pain acute vomiting with generalized abdo kesha pain COMPARISON: KUB 07/10/2019 TECHNIQUE: Multiple real-time sonographic images of the abdominal right upper quadrant were obtained assessing grayscale appearance and color flow FINDINGS: Pancreas is partially obscured by bowel gas. Liver is unremarkable without focal mass or intrahepatic biliary ductal dilation. Normal common bile duct, 4 mm. No intrahepatic biliary duct dilation. The g allbladder is unremarkable without wall thickening or pericholecystic fluid. Sonographic Reynolds sign reported as negative. Imaged right kidney is unremarkable without hydronephrosis. IMPRESSION: Unremarkable right upper quadrant abdominal ultrasound. ACT 112: Negative or not required by law. The above report was generated using voice recognition software. It may contain grammatical, syntax o r spelling errors. Electronically signed by: Roly Velasquez M.D. 07/11/2019 9:27 AM
--- NOTE | 2019-07-11 10:48 | Hospitalist Progress Note ---
Date of Service July 11, 2019 Assessment & Plan (1) DKA (diabetic ketoacidoses): Patient is a 29-year-old male with a past medical history of obesity, hypothyroidism/Elias's thyroiditis, poorly controlled type 1 diabetes, who presents to the emergency department for evaluation of hyperglycemia, nausea and vomiting in the setting of recent influenza infection and was diagnosed with diabetic ketoacidosis. 1. Diabetic ketoacidosis - Patient is a poorly controlled type I diabetic, most recent A1c was 11.2. Patient did not change his insulin regimen while on the Tamiflu, and continued to feel nauseous and have vomiting episodes until he realized his sugar was in the 400s. Glucose in the emergency department was 363, with a beta hydroxybutyrate of 88 and anion gap of 24. -At this point in time Gap has closed and patient was transitioned to subcu insu surendra overnight. Continue to trend BMPs monitor neurological status. -Will change fluids to NS 125ml/hr +15mmol KPhos x1L bag followed by NS 125ml/hr to account for slight hyponatremia NA 127 and on a separate line D5W at 50ml/hr due to difficulties controlling sugars with subqu insulin. 2. Intractable Vomiting - KUB showed no obstruction and a properly placed NG tube - GB US normal - NG tube placed yesterday, continuing to drain dark brown/green liquid at roughly 50ml/hr this AM - Antiemetic regiment -Zofran 8mg IV q8h PRN - first line -Phenergan 12.5mg IV q6h PRN - second line -Scopolamine patch -Ativan 0.5mg q8h PRN - 4th line -Benadryl 12.5mg IV q6h PRN - for akathisia from Reglan or 5th line for nausea/vomiting - Protonix 40mg BID - Will trial a clamp test of NG tube starting at 13:00 today, marked at roughly 300mL of drainage in container. -If after 8 hours (21:00) of clamping patient has >125mL drain then consider GI consult in AM -If patient notes intractable nausea then will stop test and unclamp, consider GI consult in AM. 3. Influenza - Symptoms started this past Friday was evaluated on the by nurse practitioner started him on Tamiflu. - Tamiflu DC'd as patient not tolerating PO well. May also be a contributing factor to worsening GI discomfort and nausea. - IV Tylenol for fever/pain - Duo nebs and budesonide for respiratory - Flutter valve/incentive spirometry - Chest PT d/c as patient has been refusing it. 4.Uncontrolled diabetes type 1 - A1c 11.2 - patient resistant to diabetes education per nursing - will continue attempts at education 5. Hx Elias's thyroiditis -Continue levothyroxine 150 mcg p.o. every morning 6. Dyslipidemia - likely secondary to uncontrolled DM1 - would benefit from statin for ACS protection 7. 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 This morning, the patient is much better in terms of his vomiting -it has essentially been eliminated with the placement of an NG tube yesterday. He slept better overnight because of this. He still notes some intermittent nausea but overall much better. His sugars continue to be difficult to control; discussed with pharmacy -will separate his fluids so we can separately titrate his normal saline and dextrose containing solutions. He continues to have fairly significant output in his NG tube -about 300 cc over the past 4 hours. Blood pressure 141/85, heart rate 84, respiratory 18, temperature 36.9, pulse oximetry 94% on room air. He looks more comfortable today than compared to yesterday. His abdomen is soft and generally nontender Heart regular; lungs clear Sodium 127, creatinine 0.94. Phosphorus is low at 1.9; magnesium is 1.8. Alkaline phosphatase is trending down at 122. Albumin is 3.0. Ultrasound of the liver and gallbladder is unremarkable. Intractable nausea and vomiting Diabetic ketoacidosis Influenza B Discussed options for the NG tube; will proceed with a clamp trial today although not overly optimistic given his NG output today -if he has any discomfort we will unclamp the tube, otherwise we will check residual in 4 hours Revamp the IV fluids as discussed with pharmacy Replace phosphorus; recheck electrolytes and CBC in a.m. Famotidine for GI prophylaxis If no improvement in nausea vomiting consider GI consult in a.m. Subjective Patient seen at the bedside this morning. Stated that he was still having some nausea even with the NG tube, but was unsure whether or not it was more secondary to his position. He states that he feels unready to remove the NG tube at this point in time because he worries that he'll begin vomiting again once it's out and it will need replaced. He otherwise only notes slight abdominal discomfort in the epigastric region. Review of Systems Constitutional: + fatigue; no fever, no chills, no body aches and no increased appetite Respiratory: no cough and no dyspnea Cardiovascular: no chest pain, no dyspnea and no edema Gastrointestinal: + nausea and + vomiting (slightly improved); no abdominal pain, no constipation and no diarrhea/loose stools Tolerating NG tube Genitourinary: no dysuria Physical Exam Constitutional: cooperative; no acute distress Tired appearing ENMT: external ear and nose normal, oropharynx normal NG tube in place appropriately. Neck: normal visual inspection Respiratory: normal respiratory effort and able to speak in complete sentences; no respiratory distress, no labored breathing, no retractions, no cough and no audible wheezes Auscultation: lungs clear to auscultation bilaterally; no crackles, no rales, no rhonchi and no wheezes Cardiovascular: Rate/Rhythm: regular rate and regular rhythm Heart Sounds: normal S1 and normal S2; no gallop, no murmur and no cardiac rub Vessels: posterior tibial pulses present Extremities: no pedal edema and no edema Gastrointestinal (Abdomen): Inspection/Auscultation: abdomen normal to inspection and normal bowel sounds; abdomen not distended Percussion/Palpation: + abdomen tender (slight TTP in the epigastric region ) and abdomen soft; no guarding, abdomen not rigid, no hepatosplenomegaly and no abdominal mass Psychiatric: Orientation: alert and oriented x 3 Eye Contact: + fair eye contact Affect: + flat affect Results & Data ([place]) Vital Signs (Past 12 Hours) Vital Signs Temp Pulse Pulse Resp BP BP Pulse Ox 07/11/19 07:51 77 16 97 07/11/19 07:40 36.6 C 85 18 151/98 H 92 07/10/19 23:39 36.6 C 81 18 151/79 H 94 Laboratory Results Abnormal lab results 07/10/19 07/10/19 07/11/19 Range/Units 14:54 17:10 01:59 VBG pH (7.36-7.41) Sodium (136-145) mmol/L Chloride (98-107) mmol/L BUN (7-18) mg/dl BUN/Creatinine Ratio (10-20) Glucose (70-99) mg/dl POC Glucose 158 H 152 H 160 H (70-99) mg/dl Phosphorus (2.5-4.9) mg/dl Alkaline Phosphatase (45-117) U/L Albumin (3.4-5.0) gm/dl 07/11/19 07/11/19 07/11/19 Range/Units 03:57 05:13 05:13 VBG pH (7.36-7.41) Sodium 127 L (136-145) mmol/L Chloride 92 L (98-107) mmol/L BUN 4 L (7-18) mg/dl BUN/Creatinine Ratio 4.3 L (10-20) Glucose 237 H (70-99) mg/dl POC Glucose 207 H (70-99) mg/dl Phosphorus 1.9 L (2.5-4.9) mg/dl Alkaline Phosphatase 122 H (45-117) U/L Albumin 3.0 L (3.4-5.0) gm/dl 07/11/19 07/11/19 Range/Units 05:16 05:56 VBG pH 7.44 H (7.36-7.41) Sodium (136-145) mmol/L Chloride (98-107) mmol/L BUN (7-18) mg/dl BUN/Creatinine Ratio (10-20) Glucose (70-99) mg/dl POC Glucose 274 H (70-99) mg/dl Phosphorus (2.5-4.9) mg/dl Alkaline Phosphatase (45-117) U/L Albumin (3.4-5.0) gm/dl Resident Activity Tracking Resident Involvement: Resident Care Provided Care Provided: Adult [facility] Medicine (1) DKA (diabetic ketoacidoses) Diabetes mellitus complication detail: without coma Diabetes mellitus type: type 1 Qualified Code(s): E10.10 - Type 1 diabetes mellitus with ketoacidosis without coma
[2019-07-11] MEDS ORDERED: PANTOprazole 40 MG TAB PO SCH (11:15)
[2019-07-11] MEDS ORDERED: INSULIN ASPART 100 UNITS/ML 3 ML PEN SC SCH (12:00)
[2019-07-11] MEDS: FAMOTIDINE 20 MG in SYRINGE 3 ML IV SCH (12:57)
[2019-07-11] MEDS ORDERED: SODIUM CHLORIDE 0.9% IV SCH (13:15)
[2019-07-11] MEDS ORDERED: POTASSIUM PHOSPHATE IV SCH (13:15)
[2019-07-11] MEDS ORDERED: POTASSIUM PHOSPHATE 15 MMOL in SODIUM CHLORIDE 0.9% 250 ML IV ONE (13:15)
[2019-07-11] MEDS: DEXTROSE 5% 1,000 ML IV SCH (13:49)
--- NOTE | 2019-07-11 15:18 | Pharmacy Report ---
Pharmacy Glycemic Short Note 2 - Date of Service July 11, 2019 - Glycemic Short BSG Results (Last 24 hours): 07/10/19 07/10/19 07/10/19 17:10 20:51 21:24 Glucose POC Glucose 152 H 89 94 07/10/19 07/10/19 07/11/19 22:34 23:33 01:59 Glucose POC Glucose 84 99 160 H 07/11/19 07/11/19 07/11/19 03:57 05:13 05:56 Glucose 237 H POC Glucose 207 H 274 H 07/11/19 07/11/19 12:04 13:58 Glucose POC Glucose 294 H 264 H OUTPATIENT ANTIDIABETIC REGIMEN: * Lantus 50 units qHS * Novolog scale CF 35, CR 10 * A1c 11.5% 07/09/2019 ASSESSMENT: 07/10 * Mr. Lopez's BSGs have continued to be difficult to manage * He required ~166 units of insulin yesterday between the drip and SQ doses. Insulin drip was discontinued late last night and then his BSG jane to almost 300 this AM. * Have been in discussion with resident today re: fluid management. Sodium was low but patient still NPO so he was switched to D5NS @ 125 cc/hr this AM. This has since been switched to 2 separate bags to allow for titration of NS and D5 separately. D5 rate reduced to 50 cc/hr starting at 1400. * Kannan has remained on an insulin drip overnight and throughout today * His labs showed DKA had resolved overnight so a one time dose of Lantus 50 units was given, with anticipation of transitioning to SQ today * As of this AM, BSGs were well controlled but insulin drip rates remained at 4.6 units/hr (equivalent to 110 units of insulin/day) * Kannan has remained on the dextrose IVFs at 200 cc/hr. No PO intake d/t continued nausea/vomiting. * I gave an additional 25 units of Lantus this AM but concerned about being too aggressive with no PO intake and patient being a type 1 diabetic. I did try to find out more insulin dosing info from him but was unable to obtain this d/t cognitive status. Dosing as per patient and outpatient records above. * D/w resident to see if dextrose IVFs could be somewhat decreased. These were decreased to 150 cc/hr ~1400 today. 07/09 * Mr. Lopez is a 29 yo with a history of type 1 diabetes, currently treated with lantus/novolog * Flu +, presenting in DKA, initial glucose 361, a gap 24, bicarb 12; UA positive for ketones and glucose * Started on insulin infusion, currently running at 5.8 units/hr * D5 + 20K @ 200 ml/hr, gap closing, a gap 13, bicarb 18, will continue insulin infusion until gap closed/bicarb normalized, then transition to subq PLAN FOR INPATIENT GLYCEMIC CONTROL: * Lantus 40 units this AM * Lantus tonight per the following scale: * 10 units for BSG < 140 (will equal outpatient dose) * 20 units for BSG 141-160 * 30 units for BSG 161-180 * 40 units for BSG > 181 * Further Lantus dosing tomorrow will need to be reassessed * Novolog q4h * Goal 110-140 * CF 15 mg/dL/unit (aggressive with this for IV dextrose coverage) * CR 1 unit per 8 gm CHO
[2019-07-11] MEDS: ondansetron HCL 8 MG in DEXTROSE 5% 50 ML IV PRN (16:21)
[2019-07-11] MEDS: INSULIN GLARGINE SOLOSTAR 100 UNITS/ML 3 ML PEN SC SCH (21:11)
[2019-07-11] MEDS: SODIUM CHLORIDE 0.9% 1000ML 1,000 ML IV SCH (21:34)
[2019-07-12] MEDS: DEXTROSE 5% 1,000 ML IV SCH ×2 (00:59→21:00)
[2019-07-12] MEDS: INSULIN ASPART 100 UNITS/ML 3 ML PEN SC SCH ×6 (04:08→23:50)
[2019-07-12] MEDS: ondansetron HCL 8 MG in DEXTROSE 5% 50 ML IV PRN ×2 (04:34→20:20)
[2019-07-12] MEDS: SODIUM CHLORIDE 0.9% 1000ML 1,000 ML IV SCH ×3 (05:39→20:59)
[2019-07-12 06:07] LABS: BUN Creatinine Ratio 5.8 (10-20); Calcium 8.8 mg/dl (8.5-10.1); Creatinine Clr Calc Pharmacy 197.2 ml/min; Est GFR (African American) 147.6; Est GFR (Non-African American) 127.4; Magnesium 1.9 mg/dl (1.8-2.4); Phosphorus 2.7 mg/dl (2.5-4.9); Potassium 3.2 mmol/L (3.5-5.1)
[2019-07-12] MEDS: BUDESONIDE 0.5 MG/2 ML VIAL (PULMICORT) NEB SCH ×2 (07:18→19:05)
[2019-07-12] MEDS: FAMOTIDINE 20 MG in SYRINGE 3 ML IV SCH (08:49)
[2019-07-12] MEDS: CHECK SCOPOLAMINE PATCH PLACEMENT SCH ×3 (08:51→23:51)
[2019-07-12] MEDS: ENOXAPARIN INJ 40 MG/0.4 ML SYR SQ SCH (08:51)
[2019-07-12] MEDS ORDERED: INSULIN GLARGINE SOLOSTAR 100 UNITS/ML 3 ML PEN SC ONE (09:00)
[2019-07-12] MEDS: METOCLOPRAMIDE HCL INJ 5 MG/ML 2 ML VIAL IV PRN ×2 (10:27→19:34)
--- NOTE | 2019-07-12 10:46 | Hospitalist Progress Note ---
Date of Service July 12, 2019 Assessment & Plan (1) DKA (diabetic ketoacidoses): Patient is a 29-year-old male with a past medical history of obesity, hypothyroidism/Elias's thyroiditis, poorly controlled type 1 diabetes, who presents to the emergency department for evaluation of hyperglycemia, nausea and vomiting in the setting of recent influenza infection and was diagnosed with diabetic ketoacidosis. 1. Diabetic ketoacidosis - Patient is a poorly controlled type I diabetic, most recent A1c was 11.2. At this point in time anion gap has closed and patient was transitioned to subcu insulin overnight. Insulin management per pharmacy. Continue to trend BMPs monitor neurological status. -Fluid management: NS 125ml/hr +15mmol KPhos x1L bag followed by NS 125ml/hr to account for slight hyponatremia NA 127 and on a separate line D5W at 50ml/hr due to difficulties controlling sugars with subqu insulin. Maintaining separate fluid lines to allow for titration of both hyponatremia, dehydration as well as avoiding hypoglycemia in the setting of intractable nausea and vomiting. 2. Intractable Vomiting - KUB showed no obstruction and a properly placed NG tube on . GB US normal. - Anti-emetic requirements thus far today: Zofran IV at 4 Am, Reglan 10 mg IV at 10:30 am. Yesterday: Zofran IV 216mls once. - Antiemetic regiment -Zofran 8mg IV q8h PRN - first line -Phenergan 12.5mg IV q6h PRN - second line -Scopolamine patch -Reglan 10 mg IV Q6H PRN -Ativan 0.5mg q8h PRN - 4th line -Benadryl 12.5mg IV q6h PRN - for akathisia from Reglan or 5th line for nausea/vomiting - Famotidine 20 IV daily - NG tube clamp trial overnight yielded 75 mL suctioned fluid. Continuing to have baseline nausea and post-tussive emesis. - GI consult for recommendations re: possibility of gastroparesis, intractable n/v 3. Influenza - Outpatient tamiflu discontinued - IV Tylenol for fever/pain - Duo nebs and budesonide for respiratory assistance - Flutter valve/incentive spirometry 4.Uncontrolled diabetes type 1 - A1c 11.2 - patient resistant to diabetes education per nursing - will continue attempts at education 5. Hx Elias's thyroiditis -Continue levothyroxine 150 mcg p.o. every morning 6. Dyslipidemia - likely secondary to uncontrolled DM1 - would benefit from statin for ACS protection 7. 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 This afternoon, the patient is doing well. But appears somewhat sad given that he is stilll in the hospital. He is hoping the NG tube can be removed. He also would like to see if we can advance his diet. NG tube output has decreased. VItals are good. He looks more comfortable today than compared to yesterday. His abdomen is soft and generally nontender Heart regular; lungs clear Sodium 127, creatinine 0.94. Phosphorus is 2.7; magnesium is 1.9 Alkaline phosphatase is trending down at 122 (result from 07/10) will recheck on 07/12 Ultrasound of the liver and gallbladder is unremarkable. Intractable nausea and vomiting Diabetic ketoacidosis Influenza B Consulted GI. Will advance diet to full liquid. Subjective 29-year-old male with a history of uncontrolled diabetes type 1, hypothyroidism, obesity admitted to the ICU on July 09 for DKA secondary to nausea and vomiting from the flu and taking Tamiflu. This point has been transferred to the medical floor after closure of anion gap and conversion of insulin drip to subcu insulin. This morning states that his nausea is better controlled and has not had any vomiting episodes in the past 12 hours. Actively trying to keep ice chips down while I was in the room however was unable to. Denies any shortness of breath chest pain, numbness, tingling, headaches, blurry vision. NG tube was clamped overnight and this morning suctioned 75 mL out from patient's stomach. [facility] gastroenterology consulted for possible post viral gastroparesis as well as assistance with intractable nausea and vomiting. Review of Systems Review of Systems: All systems reviewed & are unremarkable except as noted in Subjective Physical Exam Constitutional: cooperative; no acute distress and not ill appearing ENMT: NG tube in place Neck: normal visual inspection Respiratory: normal respiratory effort and able to speak in complete sentences; no respiratory distress, no labored breathing, no retractions, no c ough and no audible wheezes Auscultation: lungs clear to auscultation bilaterally; no crackles, no rales, no rhonchi and no wheezes Cardiovascular: Rate/Rhythm: regular rate and regular rhythm Heart Sounds: normal S1 and normal S2; no gallop, no murmur and no cardiac rub Vessels: posterior tibial pulses present Extremities: no pedal edema and no edema Gastrointestinal (Abdomen): Inspection/Auscultation: abdomen normal to inspection and normal bowel sounds; abdomen not distended Percussion/Palpation: abdomen soft; abdomen nontender, no guarding, abdomen not rigid and no abdominal mass Results & Data ([facility]) Vital Signs (Past 12 Hours) Vital Signs Temp Pulse Resp BP Pulse Ox 07/12/19 07:35 36.9 C 85 18 144/87 H 90 07/12/19 07:18 90 18 94 07/11/19 23:00 36.6 C 77 19 144/80 H 94 07/12/19 07/12/19 07/12/19 Range/Units 07:59 05:25 05:25 VBG pH 7.47 H (7.36-7.41) Sodium 137 D (136-145) mmol/L Potassium 3.2 L (3.5-5.1) mmol/L Chloride 101 (98-107) mmol/L Carbon Dioxide 30 (21-32) mmol/L Anion Gap 6.0 (3-11) BUN 4 L (7-18) mg/dl Creatinine 0.69 (0.6-1.4) mg/dl Est Cr Clr Drug Dosing 197.2 ml/min Est GFR ( Amer) 147.6 Est GFR (Non-Af Amer) 127.4 BUN/Creatinine Ratio 5.8 L (10-20) Glucose 102 H (70-99) mg/dl POC Glucose 132 H (70-99) mg/dl Calcium 8.8 (8.5-10.1) mg/dl Phosphorus 2.7 (2.5-4.9) mg/dl Magnesium 1.9 (1.8-2.4) mg/dl 07/12/19 07/11/19 07/11/19 Range/Units 04:07 23:47 20:21 VBG pH (7.36-7.41) Sodium (136-145) mmol/L Potassium (3.5-5.1) mmol/L Chloride (98-107) mmol/L Carbon Dioxide (21-32) mmol/L Anion Gap (3-11) BUN (7-18) mg/dl Creatinine (0.6-1.4) mg/dl Est Cr Clr Drug Dosing ml/min Est GFR ( Amer) Est GFR (Non-Af Amer) BUN/Creatinine Ratio (10-20) Glucose (70-99) mg/dl POC Glucose 91 123 H 149 H (70-99) mg/dl Calcium (8.5-10.1) mg/dl Phosphorus (2.5-4.9) mg/dl Magnesium (1.8-2.4) mg/dl 07/11/19 07/11/19 07/11/19 Range/Units 17:05 13:58 12:04 VBG pH (7.36-7.41) Sodium (136-145) mmol/L Potassium (3.5-5.1) mmol/L Chloride (98-107) mmol/L Carbon Dioxide (21-32) mmol/L Anion Gap (3-11) BUN (7-18) mg/dl Creatinine (0.6-1.4) mg/dl Est Cr Clr Drug Dosing ml/min Est GFR ( Amer) Est GFR (Non-Af Amer) BUN/Creatinine Ratio (10-20) Glucose (70-99) mg/dl POC Glucose 191 H 264 H 294 H (70-99) mg/dl Calcium (8.5-10.1) mg/dl Phosphorus (2.5-4.9) mg/dl Magnesium (1.8-2.4) mg/dl Resident Activity Tracking Resident Involvement: Resident Care Provided Care Provided: Adult [facility] Medicine (1) DKA (diabetic ketoacidoses) Diabetes mellitus complication detail: without coma Diabetes mellitus type: type 1 Qualified Code(s): E10.10 - Type 1 diabetes mellitus with ketoacidosis without coma
--- NOTE | 2019-07-12 11:18 | Pharmacy Report ---
Glycemic Control Progress Note - Date of Service July 12, 2019 - Scope Glycemic Pharmacist consulted for glycemic control to write orders per [facility] inpatient glycemic control protocol. - Objective Accuchecks BSG(last 24 hours):: 07/11/19 07/11/19 07/11/19 12:04 13:58 17:05 Glucose POC Glucose 294 H 264 H 191 H 07/11/19 07/11/19 07/12/19 20:21 23:47 04:07 Glucose POC Glucose 149 H 123 H 91 07/12/19 07/12/19 05:25 07:59 Glucose 102 H POC Glucose 132 H HbA1c:: Hemoglobin A1c 11.5 % (4.5-5.6) H 07/09/19 06:06 - Recent Pertinent Medications The patient is currently receiving: * Basal insulin: Lantus 40 units in the morning and 20 units in the evening * Correctional Insulin: Novolog Correction per scale ACHS Goal Range: Low 110 mg/dL - High 140 mg/dL Correction Factor: 15 mg/dL/unit * Prandial insulin: Per carb ratio of 1 unit per 8 grams CHO consumed - Outpatient Anti-Diabetic Meds Lantus HS (up to 50 units) plus Novolog CF of 35 and CR of 10) - Assessment & Plan ASSESSMENT: * See progress note from 07/09/2019 for more background info, in short: * Pt receiving SQ basal bolus insulin regimen for hyperglycemia secondary to baseline DM (outpatient regimen on hold). Patient currently receiving D5 @ 50 mL/hr since he has very poor PO intake/ NPO at this time. * Patient is currently receiving an average of 86 units of insulin per day * 60 units of basal insulin * 26 units of prandial/correctional insulin * BSGs ranging 123 - 294 mg/dl over the past 24hrs * Changes needed to insulin regimen: * AM Fasting BSG = 132 mg/dl. This is in goal range for patient based on inpatient targets and co-morbidities. Held off on giving AM dose of Lantus due to patient's BSGs of 123-91 mg/dL overnight. BSGs are trending upwards now so okay to give basal. Will give 50 units today as 60 units appears to be too much. Give 25 units at lunch and 25 units at bedtime. Plan for 50 at dinnertime tomorrow and then 50 at bedtime the next day. * Post-prandial BSGs are unable to be analyzed since patient is NPO. Loosen CF to 20 for right now as appear to be "over the hump." * Total daily dose = ? units. Will change as PO intake changes. PLAN FOR INPATIENT GLYCEMIC CONTROL: * CHANGING Lantus to 25 units SQ BID then starting 50 units nightly tomorrow * LOOSENING correction factor to 20 mg/dl/unit * Continuing carb ratio of 1 unit per 8 grams CHO consumed * Continuing goal range of Low 120 mg/dL - High 160 mg/dL * Please note that the plan above was derived based on current level of insulin resistance and hospital stress. These recommendations are appropriate for inpatient admission only. Plan of care upon discharge will need to be reassessed to avoid potential outpatient hypo/hyperglycemia. Thank you.
[2019-07-12] MEDS: INSULIN GLARGINE SOLOSTAR 100 UNITS/ML 3 ML PEN SC SCH ×2 (11:33→20:58)
[2019-07-12] MEDS: POTASSIUM CHLORIDE / WTR 10 MEQ/100 ML PLCT IV SCH ×3 (13:30→15:51)
--- NOTE | 2019-07-12 15:18 | Gastrointestinal Consultation ---
Date of Consultation July 12, 2019 Assessment & Plan (1) Intractable vomiting: Has improved but still with n/v. NO previous issue with n/v so could be viral induced gastroparesis. Partial bowel obstruction can do this and not be appreciated on KUB so check A/P CT scan. May need EGD at some point depending on CT findings. Consider TPN for nutrition if not able to eat soon. History of Present Illness Reason for Consultation: n/v, ? gastroparesis Requesting Physician: Dr Thao Ann Attending Physician: Karthikeyan Santillan History of Present Illness CC n/v HPI Pt with poorly controlled DM type 1 DM had flu like symptoms about 07/04 and had Influeza type B diagnosed by labwork 07/07/19. He was placed on Tamiflu and had n/v which persisted then developed DKA and was admitted to the hospital 07/08/19. KUB, Liver u/s and CXR unremarkable. He states n/v has improved. NG was clamped overnight with 75 ml output this am. His NG currently clamped and he has dry heaves today twice. No abd pain. No BMs since admit. LFTS nl except allk phos 160 on admit then 122 on 07/11/19. Lipase and TSH on admit normal. Allergies Allergy/AdvReac Type Severity Reaction Status Date / Time No Known Allergies Allergy Verified 07/08/19 22:32 Home Medications Home Medications Medication Instructions Recorded Confirmed Type insulin aspart U-100 100 unit/mL See Rx Instructions .ROUTE 03/15/19 07/08/19 History (3 mL) subcutaneous pen .COMPLEX #30 ml Lantus Solostar U-100 Insulin 100 See Rx Instructions SQ .COMPLEX 90 06/28/19 07/08/19 Rx unit/mL (3 mL) subcutaneous pen Days #3 box NS oseltamivir 75 mg capsule 75 mg PO BID PRN 5 Days #10 cap 07/07/19 07/08/19 Rx ergocalciferol (vitamin D2) 50,000 units PO 3XWK 07/08/19 07/08/19 History levothyroxine 150 mcg PO QAM 07/08/19 07/08/19 History Patient History Medical History Background diabetic retinopathy associated with type 1 diabetes mellitus (Acute) Dyslipidemia (Acute) Erectile dysfunction (Acute) Elias's thyroiditis (Acute) Hypothyroidism (Acute) Microalbuminuria (Acute) Neurodermatitis (Acute) Obesity (BMI 30.0-34.9) (Acute) Uncontrolled type 1 diabetes mellitus with neurologic complication, with long- term current use of insulin (Acute) Uncontrolled type 1 diabetes mellitus with ophthalmic complication, with long- term current use of insulin (Acute) Vitamin D deficiency (Acute) Surgical History No pertinent past surgical history S/P tooth extraction Family History Grandfather Diabetes Aunt Diabetes Denies family history of Ovarian cancer Prostate cancer Myocardial infarction Breast cancer Lung cancer Colorectal cancer Stroke Social History Preferred Language: Maltese Communication Ability: Effective Visual Impairment: Limited Hearing Ability: Normal Corporate Wellness Coordinator Required: No Beliefs That Will Affect Care: None marital status: Current Living Situation: Family current occupational status: employed 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 Other Information That Helps Us Care for You: No Feels Safe at Home: Yes Safety Concerns: Feels Safe At This Time Smoking Status: Never smoker Do You Dip or Chew Tobacco: No ; Second Hand Exposure: No ; Tobacco Cessation Education Requested by Patient: No Hx Alcohol Use: Yes Alcohol type: hard liquor Alcohol Intake Frequency: Rarely Hx Substance Use: No Childhood Exposure to Second-Hand Smoke: No Review of Systems Review of Systems: All systems reviewed & are unremarkable except as noted in HPI & below Physical Exam Constitutional: WD/WN, vitals as above Eyes: PERRL, conjunctivae normal, anicteric sclerae ENMT: external ear and nose normal, oropharynx normal Neck: normal visual inspection and trachea midline Respiratory: normal respiratory effort, lungs clear to auscultation Cardiovascular: RRR, no murmur, no edema Gastrointestinal (Abdomen): normal bowel sounds, soft, nontender, no hepatosplenomegaly Neurologic: PERRL, EOMI, accommodation nl, no face palsy, no dysarthria Psychiatric: A+Ox3, euthymic affect Results & Data ([facility]) Vital Signs (Past 12 Hours) Vital Signs Temp Pulse Resp BP Pulse Ox 07/12/19 07:35 36.9 C 85 18 144/87 H 90 03/02/20 07:18 90 18 94
[2019-07-12] MEDS ORDERED: IOVERSOL 100ml IV PRN (16:27)
--- NOTE | 2019-07-12 17:18 | CT Scan Report ---
ABDOMEN AND PELVIS CT WITH IV CONTRAST CT DOSE: 981.60 mGy.cm HISTORY: Intractable nausea and vomiting. TECHNIQUE: Multiaxial CT images of the abdomen and pelvis were performed following the use of intrave nous contrast. A dose lowering technique was utilized adhering to the principles of ALARA. COMPARISON STUDY: Abdominal ultrasound 07/11/2019. FINDINGS: Patchy groundglass densities within the left lower lobe with a few small tree-in-bud nodula r opacities. This favors a pneumonitis and could be secondary to aspiration. No pneumoperitoneum. No pneumatosis. No suspicious lytic are blastic osseous lesions. Nasogastric tube terminates in the body of the stomach. Focal fatty change within the liver adjacent to the falciform ligament. No hepatic o r splenic masses. The adrenal glands, pancreas, gallbladder, and kidneys are unremarkable. No retrope ritoneal lymphadenopathy. Normal caliber abdominal aorta. The bladder is unremarkable. Calcifications of the vas deferens. This can be seen in the setting of diabetes. No bowel wall thickening or obstru ction. The visualized appendix is unremarkable. Majority of the colon is decompressed. IMPRESSION: 1. No bowel wall thickening or obstruction. 2. Normal appendix. 3. Nasogastric tube terminates in the stomach. 4. Mild left lower lobe pneumonitis. This could be secondary to aspiration. 5. Calcifications of the vas deferens. This can be seen in the setting of diabetes. ACT 112: Negative or not required by law. Electronically signed by: Jeremy Caputo M.D. 07/12/2019 5:17 PM
[2019-07-12] MEDS: SCOPOLAMINE 1.5 MG TDSY TD SCH (20:57)
[2019-07-13] MEDS: INSULIN ASPART 100 UNITS/ML 3 ML PEN SC SCH ×6 (04:08→23:37)
[2019-07-13] MEDS: SODIUM CHLORIDE 0.9% 1000ML 1,000 ML IV SCH ×3 (05:07→21:24)
[2019-07-13] MEDS: BUDESONIDE 0.5 MG/2 ML VIAL (PULMICORT) NEB SCH ×2 (06:50→21:22)
[2019-07-13 07:47] LABS: Basophils # (auto) 0.01 K/uL (0-0.2); Basophils % (auto) 0.1 %; Eosinophils # (auto) 0.04 K/uL (0-0.5); Eosinophils % (auto) 0.5 %; Hematocrit (blood only) 38.8 % (42-52); Hemoglobin 13.5 g/dL (14.0-18.0); Immature Granulocytes # (auto) 0.03 K/uL (0.00-0.02); Immature Granulocytes % (auto) 0.4 %; Lymphocytes # (auto) 1.48 K/uL (1.2-3.4); Lymphocytes % (auto) 17.5 %; Mean Corpuscular Hemoglobin 28.4 pg (25-34); Mean Corpuscular Hgb Conc 34.8 g/dL (32-36); Mean Corpuscular Volume 81.7 fL (80-100); Mean Platelet Volume 9.4 fL (7.4-10.4); Monocytes # (auto) 1.02 K/uL (0.11-0.59); Monocytes % (auto) 12.1 %; Neutrophils # (auto) 5.88 K/uL (1.4-6.5); Neutrophils % (auto) 69.4 %; Platelet Count 314 K/uL (130-400); RDW Standard Deviation 39.2 fL (36.4-46.3); Red Blood Count 4.75 M/uL (4.7-6.1); White Blood Count 8.46 K/uL (4.8-10.8)
[2019-07-13] MEDS: CHECK SCOPOLAMINE PATCH PLACEMENT SCH ×3 (08:16→23:36)
[2019-07-13] MEDS: ENOXAPARIN INJ 40 MG/0.4 ML SYR SQ SCH (08:17)
[2019-07-13 08:22] LABS: Alanine Aminotransferase 17 U/L (12-78); Albumin Level 2.7 gm/dl (3.4-5.0); Aspartate Aminotransferase 17 U/L (15-37); BUN Creatinine Ratio 6.1 (10-20); Bilirubin Direct < 0.1 mg/dl (0-0.2); Blood Urea Nitrogen 4 mg/dl (7-18); Calcium 8.7 mg/dl (8.5-10.1); Carbon Dioxide 30 mmol/L (21-32); Chloride 101 mmol/L (98-107); Creatinine Clr Calc Pharmacy 238.8 ml/min; Est GFR (African American) > 150.0; Est GFR (Non-African American) 137.8; Glucose 112 mg/dl (70-99); Potassium 3.2 mmol/L (3.5-5.1); Sodium 138 mmol/L (136-145)
[2019-07-13 08:25] LABS: Alkaline Phosphatase 115 U/L (45-117); Bilirubin,Total 0.4 mg/dl (0.2-1)
[2019-07-13] MEDS: FAMOTIDINE 20 MG in SYRINGE 3 ML IV SCH (08:25)
[2019-07-13] MEDS ORDERED: TPN/PPN CONSULT PHARMACY PRN (08:35)
--- NOTE | 2019-07-13 11:12 | Hospitalist Progress Note ---
Date of Service July 13, 2019 Assessment & Plan (1) DKA (diabetic ketoacidoses): Patient is a 29-year-old male with a past medical history of obesity, hypothyroidism/Elias's thyroiditis, poorly controlled type 1 diabetes, who presents to the emergency department for evaluation of hyperglycemia, nausea and vomiting in the setting of recent influenza infection and was diagnosed with diabetic ketoacidosis. 1. Diabetic ketoacidosis - Patient is a poorly controlled type I diabetic, most recent A1c was 11.2. sugars well controlled today without insulin given minimal oral intake. Last insulin was 25 u glargine at bedtime on 07/11. - D5W discontinued. NS 125ml/hr still running for fluid management. Will taper off as able to handle appropriate oral intake. 2. Intractable Vomiting - KUB showed no obstruction and a properly placed NG tube on . GB US normal. - Anti-emetic requirements thus far today: Scopolamine patch, IV Reglan. Flipped orders to PO. - Famotidine 20 IV daily - Per GI: outpatient EGD if continuing issues, but no acute interventions with improving tolerance of diet 3. Influenza - Duo nebs and budesonide for respiratory assistance - Flutter valve/incentive spirometry - CT abd/pelv picked up a mild LLL pneumonitis likely 2/2 aspiration during emesis 4.Uncontrolled diabetes type 1 - A1c 11.2 - patient resistant to diabetes education per nursing - will continue attempts at education 5. Hx Elias's thyroiditis -Continue levothyroxine 150 mcg p.o. every morning 6. Dyslipidemia - likely secondary to uncontrolled DM1 - would benefit from statin for ACS protection 7. Hypophosphatemia, Hypomagnesemia: resolved FEN/GI:Full liquids, advance to low fiber, low fat diet as tolerated DVT: lovenox GI Ppx: Famotidine 20mg IV QD Code: Full Code Dispo: Med/Surg 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, with long-term current use of insulin: (4) Elias's thyroiditis: (5) Dyslipidemia: (6) Intractable vomiting: Admission and Anticipated Discharge Date Admission Date: July 09, 2019 Supervising Physician Co-Signing Physician Notes I saw the patient with the resident physician and confirmed rivas portions of the history and physical examination. This afternoon, the patient is doing well. States NG tube was removed whn he coughed overnight. He states he is tolerating his full liquid diet. VItals are good. He looks more comfortable today than compared to yesterday. His abdomen is soft and generally nontender Heart regular; lungs clear Sodium 138, creatinine 0.5. Phosphorus is 2.7; magnesium is 1.9 Alkaline phosphatase is trending down at 115 Ultrasound of the liver and gallbladder is unremarkable. Intractable nausea and vomiting Diabetic ketoacidosis Influenza B Tolerating ful liquid diet D/W gastro, plan was to do EGD if patient remained NPO and not eating. However due to influenza and not taking tamiflu, would prefer waiting on EGD as an outpatient is possible. Given that patient is eating, this appears to be a moot point. will continue to monitor. Will also remain on droplet precautions for the remainder of the hospital stay. Subjective 29-year-old male with uncontrolled type 1 diabetes here for intractable nausea and vomiting. Pulled out his own NG tube this morning and has not had any episodes of emesis today. Continues to have some level of baseline nausea however says it is better controlled today. Was in the midst of eating a thick liquid breakfast that he said he had been able to keep down while I was in the room. Plan to progress to low fiber diet as tolerated today. No acute complaints today. Review of Systems Review of Systems: All systems reviewed & are unremarkable except as noted in HPI & below Physical Exam Constitutional: cooperative; no acute distress and not ill appearing Neck: normal visual inspection Respiratory: normal respiratory effort and able to speak in complete sentences; no respiratory distress, no labored breathing, no retractions, no cough and no audible wheezes Auscultation: lungs clear to auscultation bilaterally; no crackles, no rales, no rhonchi and no wheezes Cardiovascular: Rate/Rhythm: regular rate and regular rhythm Heart Sounds: normal S1 and normal S2; no gallop, no murmur and no cardiac rub Vessels: posterior tibial pulses present Extremities: no pedal edema and no edema Gastrointestinal (Abdomen): Inspection/Auscultation: abdomen normal to inspection and normal bowel sounds; abdomen not distended Percussion/Palpation: abdomen soft; abdomen nontender, no guarding, abdomen not rigid and no abdominal mass Results & Data ([facility]) Vital Signs (Past 12 Hours) Vital Signs Temp Pulse Resp BP BP Pulse Ox 07/13/19 07:16 36.6 C 76 20 148/94 H 98 07/13/19 06:53 76 18 94 07/12/19 23:58 151/97 H 07/12/19 23:26 36.8 C 69 18 168/70 H 90 07/13/19 07/13/19 07/13/19 Range/Units 11:53 07:42 07:36 WBC 8.46 (4.8-10.8) K/uL RBC 4.75 (4.7-6.1) M/uL Hgb 13.5 L (14.0-18.0) g/dL Hct 38.8 L (42-52) % MCV 81.7 (80-100) fL MCH 28.4 (25-34) pg MCHC 34.8 (32-36) g/dL RDW Std Deviation 39.2 (36.4-46.3) fL RDW Coeff of Edie 13.0 (11.5-14.5) % Plt Count 314 (130-400) K/uL MPV 9.4 (7.4-10.4) fL Immature Gran % (Auto) 0.4 % Neut % (Auto) 69.4 % Lymph % (Auto) 17.5 % [place] % (Auto) 12.1 % Eos % (Auto) 0.5 % Baso % (Auto) 0.1 % Immature Gran # (Auto) 0.03 H (0.00-0.02) K/uL Neut # (Auto) 5.88 (1.4-6.5) K/uL Lymph # (Auto) 1.48 (1.2-3.4) K/uL [place] # (Auto) 1.02 H (0.11-0.59) K/uL Eos # (Auto) 0.04 (0-0.5) K/uL Baso # (Auto) 0.01 (0-0.2) K/uL Sodium (136-145) mmol/L Potassium (3.5-5.1) mmol/L Chloride (98-107) mmol/L Carbon Dioxide (21-32) mmol/L Anion Gap (3-11) BUN (7-18) mg/dl Creatinine (0.6-1.4) mg/dl Est Cr Clr Drug Dosing ml/min Est GFR ( Amer) Est GFR (Non-Af Amer) BUN/Creatinine Ratio (10-20) Glucose (70-99) mg/dl POC Glucose 155 H 106 H (70-99) mg/dl Calcium (8.5-10.1) mg/dl Total Bilirubin (0.2-1) mg/dl Direct Bilirubin (0-0.2) mg/dl AST (15-37) U/L ALT (12-78) U/L Alkaline Phosphatase (45-117) U/L Total Protein (6.4-8.2) gm/dl Albumin (3.4-5.0) gm/dl 07/13/19 07/13/19 07/12/19 Range/Units 07:36 04:06 23:49 WBC (4.8-10.8) K/uL RBC (4.7-6.1) M/uL Hgb (14.0-18.0) g/dL Hct (42-52) % MCV (80-100) fL MCH (25-34) pg MCHC (32-36) g/dL RDW Std Deviation (36.4-46.3) fL RDW Coeff of Edie (11.5-14.5) % Plt Count (130-400) K/uL MPV (7.4-10.4) fL Immature Gran % (Auto) % Neut % (Auto) % Lymph % (Auto) % [place] % (Auto) % Eos % (Auto) % Baso % (Auto) % Immature Gran # (Auto) (0.00-0.02) K/uL Neut # (Auto) (1.4-6.5) K/uL Lymph # (Auto) (1.2-3.4) K/uL [place] # (Auto) (0.11-0.59) K/uL Eos # (Auto) (0-0.5) K/uL Baso # (Auto) (0-0.2) K/uL Sodium 138 (136-145) mmol/L Potassium 3.2 L (3.5-5.1) mmol/L Chloride 101 (98-107) mmol/L Carbon Dioxide 30 (21-32) mmol/L Anion Gap 6.0 (3-11) BUN 4 L (7-18) mg/dl Creatinine 0.57 L (0.6-1.4) mg/dl Est Cr Clr Drug Dosing 238.8 ml/min Est GFR ( Amer) > 150.0 Est GFR (Non-Af Amer) 137.8 BUN/Creatinine Ratio 6.1 L (10-20) Glucose 112 H (70-99) mg/dl POC Glucose 89 139 H (70-99) mg/dl Calcium 8.7 (8.5-10.1) mg/dl Total Bilirubin 0.4 (0.2-1) mg/dl Direct Bilirubin < 0.1 (0-0.2) mg/dl AST 17 (15-37) U/L ALT 17 (12-78) U/L Alkaline Phosphatase 115 (45-117) U/L Total Protein 7.0 (6.4-8.2) gm/dl Albumin 2.7 L (3.4-5.0) gm/dl 07/12/19 07/12/19 Range/Units 20:19 16:53 WBC (4.8-10.8) K/uL RBC (4.7-6.1) M/uL Hgb (14.0-18.0) g/dL Hct (42-52) % MCV (80-100) fL MCH (25-34) pg MCHC (32-36) g/dL RDW Std Deviation (36.4-46.3) fL RDW Coeff of Edie (11.5-14.5) % Plt Count (130-400) K/uL MPV (7.4-10.4) fL Immature Gran % (Auto) % Neut % (Auto) % Lymph % (Auto) % [place] % (Auto) % Eos % (Auto) % Baso % (Auto) % Immature Gran # (Auto) (0.00-0.02) K/uL Neut # (Auto) (1.4-6.5) K/uL Lymph # (Auto) (1.2-3.4) K/uL [place] # (Auto) (0.11-0.59) K/uL Eos # (Auto) (0-0.5) K/uL Baso # (Auto) (0-0.2) K/uL Sodium (136-145) mmol/L Potassium (3.5-5.1) mmol/L Chloride (98-107) mmol/L Carbon Dioxide (21-32) mmol/L Anion Gap (3-11) BUN (7-18) mg/dl Creatinine (0.6-1.4) mg/dl Est Cr Clr Drug Dosing ml/min Est GFR ( Amer) Est GFR (Non-Af Amer) BUN/Creatinine Ratio (10-20) Glucose (70-99) mg/dl POC Glucose 175 H 171 H (70-99) mg/dl Calcium (8.5-10.1) mg/dl Total Bilirubin (0.2-1) mg/dl Direct Bilirubin (0-0.2) mg/dl AST (15-37) U/L ALT (12-78) U/L Alkaline Phosphatase (45-117) U/L Total Protein (6.4-8.2) gm/dl Albumin (3.4-5.0) gm/dl Resident Activity Tracking Resident Involvement: Resident Care Provided Care Provided: Adult [facility] Medicine (1) DKA (diabetic ketoacidoses) Diabetes mellitus complication detail: without coma Diabetes mellitus type: type 1 Qualified Code(s): E10.10 - Type 1 diabetes mellitus with ketoacidosis without coma
[2019-07-13] MEDS: METOCLOPRAMIDE HCL INJ 5 MG/ML 2 ML VIAL IV PRN (12:19)
[2019-07-13] MEDS ORDERED: METOCLOPRAMIDE HCL 10 MG TABLET PO PRN (13:12)
--- NOTE | 2019-07-13 14:19 | Pharmacy Report ---
Glycemic Control Progress Note - Date of Service July 13, 2019 - Scope Glycemic Pharmacist consulted for glycemic control to write orders per [facility] inpatient glycemic control protocol. - Objective Accuchecks BSG(last 24 hours):: 07/12/19 07/12/19 07/12/19 16:53 20:19 23:49 Glucose POC Glucose 171 H 175 H 139 H 07/13/19 07/13/19 07/13/19 04:06 07:36 07:42 Glucose 112 H POC Glucose 89 106 H 07/13/19 11:53 Glucose POC Glucose 155 H HbA1c:: Hemoglobin A1c 11.5 % (4.5-5.6) H 07/09/19 06:06 - Recent Pertinent Medications The patient is currently receiving: * Basal insulin: Lantus 25 units every 12 hours * Correctional Insulin: Novolog Correction per scale ACHS Goal Range: Low 120 mg/dL - High 160 mg/dL Correction Factor: 20 mg/dL/unit * Prandial insulin: Per carb ratio of 1 unit per 8 grams CHO consumed - Outpatient Anti-Diabetic Meds Lantus 50 units HS Novolog CF 35 CR 10 - Assessment & Plan ASSESSMENT: * See progress note from 07/09/2019 for more background info, in short: * Pt receiving SQ basal bolus insulin regimen for hyperglycemia secondary to baseline DM (outpatient regimen on hold). Patient has had poor PO intake for several days. He has been on D5 infusion to help manage blood sugars. Since patient started tolerating orals today received order from physician to discontinue D5 around 1415. * Patient is currently receiving an average of 52 units of insulin per day * 50 units of basal insulin * 2 units of prandial/correctional insulin * BSGs ranging 132 - 175 mg/dl over the past 24hrs * Changes needed to insulin regimen: * AM Fasting BSG = 106 mg/dl. This is in goal range for patient based on inpatient targets and co-morbidities. Concerned that the patient's fasting BSGs have been trending downwards. Planned for 50 units of Lantus tonight at dinnertime (striving for once daily Lantus dosing). Due to this concern, will make a dose of 40 units available for BSG less than 140 mg/dL. * Post-prandial BSGs have only been evaluated today. Will loosen CF slightly as concerned about basal insulin (CF adds to basal rate) and continue. * Total daily dose = ? units. Will be determine as PO intake improves. PLAN FOR INPATIENT GLYCEMIC CONTROL: * Starting Lantus 50 units SQ HS (40 units if BSG less than 140 mg/dL) * LOOSENING correction factor to 25 mg/dl/unit * Continuing carb ratio of 1 unit per 8 grams CHO consumed * Continuing goal range of Low 120 mg/dL - High 160 mg/dL * Please note that the plan above was derived based on current level of insulin resistance and hospital stress. These recommendations are appropriate for inpatient admission only. Plan of care upon discharge will need to be reassessed to avoid potential outpatient hypo/hyperglycemia. Thank you.
--- NOTE | 2019-07-13 15:07 | Gastroenterology Progress Note ---
Date of Service July 13, 2019 Assessment & Plan (1) Intractable vomiting: improved. Advance diet as tolerated. No need for EGD at present and since may still be infectious for influenza would avoid it unless absolutely necessary. If patient has recurrent issues as outpt then send to GI ? LLL pneumonitis on CT--per hositalist. Will sign off. Please call for further questions. Admission and Anticipated Discharge Date Admission Date: July 09, 2019 Subjective cc nausea HPI Pt states nausea improved. Tolerating clear liquids without vomiting today. No abd pain. CT a/p LLL pneumonits o/w normal. Physical Exam Respiratory: normal respiratory effort, lungs clear to auscultation Cardiovascular: RRR, no murmur, no edema Gastrointestinal (Abdomen): normal bowel sounds, soft, nontender, no hepatosplenomegaly Results & Data ([facility]) Vital Signs (Past 12 Hours) Vital Signs Temp Pulse Resp BP Pulse Ox 07/13/19 14:56 37 C 81 20 164/97 H 93 07/13/19 07:16 36.6 C 76 20 148/94 H 98 07/13/19 06:53 76 18 94
--- NOTE | 2019-07-13 15:46 | Billing Data ---
Date of Service July 12, 2019 Coding Level of Care Code 48377 Subseq Hosp Care Lvl 3 Time Spent (min) 35
[2019-07-13] MEDS ORDERED: INSULIN GLARGINE SOLOSTAR 100 UNITS/ML 3 ML PEN SC SCH ×3 (17:00→21:00)
[2019-07-13] MEDS: ONDANSETRON 4 MG OD TAB PO PRN (17:53)
[2019-07-13] MEDS: PROMETHAZINE HCL 12.5 MG in SODIUM CHLORIDE 0.9% 50 ML IV PRN (19:12)
[2019-07-14] MEDS: INSULIN ASPART 100 UNITS/ML 3 ML PEN SC SCH ×6 (03:56→23:31)
[2019-07-14] MEDS: CARBOHYDRATES FOR HYPOGLYCEMIA PO PRN (03:56)
[2019-07-14] MEDS: SODIUM CHLORIDE 0.9% 1000ML 1,000 ML IV SCH ×2 (05:20→13:31)
[2019-07-14] MEDS: BUDESONIDE 0.5 MG/2 ML VIAL (PULMICORT) NEB SCH ×2 (07:01→19:46)
--- NOTE | 2019-07-14 07:24 | Billing Data ---
Date of Service July 13, 2019 Coding Level of Care Code 03233 Subseq Hosp Care Lvl 3 Time Spent (min) 35
[2019-07-14 07:57] LABS: Alanine Aminotransferase 23 U/L (12-78); Albumin Level 2.6 gm/dl (3.4-5.0); Aspartate Aminotransferase 27 U/L (15-37); BUN Creatinine Ratio 4.5 (10-20); Bilirubin Direct < 0.1 mg/dl (0-0.2); Blood Urea Nitrogen 3 mg/dl (7-18); Calcium 8.5 mg/dl (8.5-10.1); Carbon Dioxide 31 mmol/L (21-32); Chloride 100 mmol/L (98-107); Creatinine Clr Calc Pharmacy 203.1 ml/min; Est GFR (African American) 149.4; Est GFR (Non-African American) 128.9; Glucose 111 mg/dl (70-99); Potassium 3.2 mmol/L (3.5-5.1); Sodium 137 mmol/L (136-145)
[2019-07-14 08:00] LABS: Alkaline Phosphatase 106 U/L (45-117); Bilirubin,Total 0.4 mg/dl (0.2-1); Total Protein 6.7 gm/dl (6.4-8.2)
[2019-07-14] MEDS: FAMOTIDINE 20 MG in SYRINGE 3 ML IV SCH (08:36)
[2019-07-14] MEDS: CHECK SCOPOLAMINE PATCH PLACEMENT SCH ×3 (08:36→23:21)
[2019-07-14] MEDS: ENOXAPARIN INJ 40 MG/0.4 ML SYR SQ SCH (08:36)
[2019-07-14] MEDS: ONDANSETRON 4 MG OD TAB PO PRN (08:37)
[2019-07-14 08:48] LABS: Basophils # (auto) 0.02 K/uL (0-0.2); Basophils % (auto) 0.3 %; Eosinophils # (auto) 0.09 K/uL (0-0.5); Eosinophils % (auto) 1.1 %; Hematocrit (blood only) 38.7 % (42-52); Hemoglobin 13.2 g/dL (14.0-18.0); Immature Granulocytes # (auto) 0.03 K/uL (0.00-0.02); Immature Granulocytes % (auto) 0.4 %; Lymphocytes # (auto) 1.83 K/uL (1.2-3.4); Lymphocytes % (auto) 23.2 %; Mean Corpuscular Hemoglobin 28.2 pg (25-34); Mean Corpuscular Hgb Conc 34.1 g/dL (32-36); Mean Corpuscular Volume 82.7 fL (80-100); Mean Platelet Volume 9.6 fL (7.4-10.4); Monocytes # (auto) 1.16 K/uL (0.11-0.59); Monocytes % (auto) 14.7 %; Neutrophils # (auto) 4.77 K/uL (1.4-6.5); Neutrophils % (auto) 60.3 %; Platelet Count 392 K/uL (130-400); RDW Coefficient of Variation 13.1 % (11.5-14.5); RDW Standard Deviation 39.6 fL (36.4-46.3); Red Blood Count 4.68 M/uL (4.7-6.1)
[2019-07-14] MEDS ORDERED: ALUMINUM/MAGNESIUM SUSP 30 ML UDC PO STA (10:56)
[2019-07-14] MEDS ORDERED: LIDOCAINE HCL VISCOUS SOLN 2% 15 ML UDC PO ONE (10:56)
[2019-07-14] MEDS: ondansetron HCL 6 MG in DEXTROSE 5% 50 ML IV SCH ×3 (11:37→23:20)
[2019-07-14] MEDS ORDERED: ALUMINUM/MAGNESIUM SUSP 50 ML, DiphenhydrAMINE Syrup 125 MG, LIDOCAINE HCL 2% VISCOUS 4... PO ONE (11:55)
[2019-07-14] MEDS: PANTOprazole 40 MG TAB PO SCH ×2 (12:13→20:59)
[2019-07-14] MEDS ORDERED: SUCRALFATE 1 GM/10 ML UDC PO SCH (12:30)
[2019-07-14] MEDS: POTASSIUM CHLORIDE / WTR 10 MEQ/100 ML PLCT IV SCH ×3 (12:38→14:36)
--- NOTE | 2019-07-14 12:38 | Hospitalist Progress Note ---
Date of Service July 14, 2019 Assessment & Plan (1) DKA (diabetic ketoacidoses): Patient is a 29-year-old male with a past medical history of obesity, hypothyroidism/Elias's thyroiditis, poorly controlled type 1 diabetes, who presents to the emergency department for evaluation of hyperglycemia, nausea and vomiting in the setting of recent influenza infection and was diagnosed with diabetic ketoacidosis. 1. Intractable Vomiting - CT abd/pelv with IV contrast negative for SBO - Anti-emetic requirements thus far today: Scopolamine patch,PO reglan, PO zofran. Still having episodes of emesis so will switch to scheduled IV Zofran. - Famotidine 20 IV daily + PO Pantoprazole 40 BID for GI protection - GI cocktail [viscous lidocaine, maalox] to try and distinguish extent of gastric inflammation as source of nausea - Per GI: outpatient EGD if continuing issues, but no acute interventions with improving tolerance of diet - given lack of proper diet for past 7 days with inpatient stay, at this time concerned for muscle wasting and poor nutrition. Placement of PICC line and TPN ordered. D/C NS with starting TPN. 2. Influenza - Duo nebs and budesonide for respiratory assistance - Flutter valve/incentive spirometry - CT abd/pelv picked up a mild LLL pneumonitis likely 2/2 aspiration during emesis - Didn't finish Tamiflu 2/2 DKA and N/V; droplet precautions. 3. Diabetic ketoacidosis/DM1 - Patient is a poorly controlled type I diabetic, most recent A1c was 11.2. Insulin management per pharmacy. Last Insulin 2 days ago, 25 U glargine at bedtime. Managing hypoglycemia per protocol. - D5W discontinued. NS 125ml/hr still running for fluid management. Discontinuing with initiation of TPN. - will continue diabetic education 5. Hx Eilas's thyroiditis -Continue levothyroxine 150 mcg p.o. every morning 6. Dyslipidemia - likely secondary to uncontrolled DM1 - would benefit from statin for ACS protection 7. Electrolyte Abnormalities - in setting of starting TPN, rechecking Phos and Mag prior to starting and in AM. - K 3.2 the past two days. iN setting of repeated emesis will repleat with 3 bags K-riders. 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 Patient seen multiple times today. First time he had ongoing nausea vomiting of about 500 mL of emesis, not able to keep anything down. Later patient seen after getting p.o. Protonix as well as Maalox/viscous lidocainehe had not yet tried to eat anything, so it was hard to tell how he is feeling. On third visit it appeared he had taken a few bites of applesauce without vomiting but was sound asleep whenever I saw him. Notes no significant abdominal pain, just a lot of nausea vomiting and inability to take p.o. He is also not had a bowel movement about a week, but of note has not eaten much of anything meaningful over the last week. Vitals noted, in general he is awake and alert pleasant no distress. Does appear quite fatigued. HEENT normocephalic atraumatic mucous membranes moist. Breathing is unlabored no accessory muscle use good effort. Abdomen is soft nondistended nontender no masses organomegaly. Extremities show no cyanosis or clubbing. Neuro shows no focal deficits. Intractable nausea and vomitingon the heels of having had DKA and influenzaseems to be nonspecific and may even be residual symptoms from the flu, versus some degree of upper GI mucosal illness brought on by the significant physiologic stress of what he has just went through. Escalate acid suppression to Protonix twice daily, great mucosal barrier treatments initially with Maalox/viscous lidocaine, then with Carafate 4 times daily. Encourage oral intake and follow. Schedule Zofran for the next 24 hours. Malnutritionacutehe has not eaten meaningfully in the last week. Is getting to be quite concerning, and unless the above line of treatment dramatically changes his nausea fairly quickly, his big concern about his malnutrition getting worse. Because of this we discussed risks and benefits of acutely utilizing TPN. He expresses understanding of this as well as of PICC line placementwe will have a PEG placed and start TPN LIZZIE. Type 1 diabetescontinue insulin management, pharmacy will help titrate given the TPN. Otherwise as above. Subjective Attempted low fiber, low fat diet acceleration last night which was unsuccessful. 500 cc yellowish emesis x2 since last night to lunch today. Tolerating small sips of fluids, small bites of jello/yogurt. Thinks that maybe volume of food was more problematic for nausea induction. Continues to deny any abdominal pain. Review of Systems Constitutional: no fever, no sweats and no body aches Respiratory: no cough and no dyspnea Cardiovascular: no chest pain and no palpitations Gastrointestinal: + nausea, + vomiting and + constipation (last bowel movement 6 days ago); no hematemesis and no cramping Physical Exam Constitutional: Laying in bed, appears frustrated/unhappy, participating with questions and team conversation. Bilateral red flushing on cheeks from mandible to zygomatic arches Neck: normal visual inspection Respiratory: normal respiratory effort and able to speak in complete sentences; no respiratory distress, no labored breathing, no retractions, no cough and no audible wheezes Auscultation: lungs clear to auscultation bilaterally; no crackles, no rales, no rhonchi and no wheezes Cardiovascular: Rate/Rhythm: regular rate and regular rhythm Heart Sounds: normal S1 and normal S2; no gallop, no murmur and no cardiac rub Vessels: posterior tibial pulses present Extremities: no pedal edema and no edema Gastrointestinal (Abdomen): Inspection/Auscultation: abdomen normal to inspection and normal bowel sounds; abdomen not distended Percussion/Palpati on: abdomen soft; abdomen nontender ("uncomfortable" with palpation), no guarding, abdomen not rigid and no abdominal mass Results & Data ([facility]) Vital Signs (Past 12 Hours) Vital Signs Temp Pulse Resp BP Pulse Ox 07/14/19 07:12 37 C 76 16 126/76 91 07/14/19 07:01 78 18 96 07/14/19 07/14/19 07/14/19 Range/Units 13:03 11:31 07:34 WBC (4.8-10.8) K/uL RBC (4.7-6.1) M/uL Hgb (14.0-18.0) g/dL Hct (42-52) % MCV (80-100) fL MCH (25-34) pg MCHC (32-36) g/dL RDW Std Deviation (36.4-46.3) fL RDW Coeff of Edie (11.5-14.5) % Plt Count (130-400) K/uL MPV (7.4-10.4) fL Immature Gran % (Auto) % Neut % (Auto) % Lymph % (Auto) % [place] % (Auto) % Eos % (Auto) % Baso % (Auto) % Immature Gran # (Auto) (0.00-0.02) K/uL Neut # (Auto) (1.4-6.5) K/uL Lymph # (Auto) (1.2-3.4) K/uL [place] # (Auto) (0.11-0.59) K/uL Eos # (Auto) (0-0.5) K/uL Baso # (Auto) (0-0.2) K/uL Sodium (136-145) mmol/L Potassium (3.5-5.1) mmol/L Chloride (98-107) mmol/L Carbon Dioxide (21-32) mmol/L Anion Gap (3-11) BUN (7-18) mg/dl Creatinine (0.6-1.4) mg/dl Est Cr Clr Drug Dosing ml/min Est GFR ( Amer) Est GFR (Non-Af Amer) BUN/Creatinine Ratio (10-20) Glucose (70-99) mg/dl POC Glucose 132 H 104 H (70-99) mg/dl Calcium (8.5-10.1) mg/dl Phosphorus Pending Magnesium Pending Total Bilirubin (0.2-1) mg/dl Direct Bilirubin (0-0.2) mg/dl AST (15-37) U/L ALT (12-78) U/L Alkaline Phosphatase (45-117) U/L Total Protein (6.4-8.2) gm/dl Albumin (3.4-5.0) gm/dl 07/14/19 07/14/19 07/14/19 Range/Units 06:58 06:55 04:14 WBC 7.90 (4.8-10.8) K/uL RBC 4.68 L (4.7-6.1) M/uL Hgb 13.2 L (14.0-18.0) g/dL Hct 38.7 L (42-52) % MCV 82.7 (80-100) fL MCH 28.2 (25-34) pg MCHC 34.1 (32-36) g/dL RDW Std Deviation 39.6 (36.4-46.3) fL RDW Coeff of Edie 13.1 (11.5-14.5) % Plt Count 392 (130-400) K/uL MPV 9.6 (7.4-10.4) fL Immature Gran % (Auto) 0.4 % Neut % (Auto) 60.3 % Lymph % (Auto) 23.2 % [place] % (Auto) 14.7 % Eos % (Auto) 1.1 % Baso % (Auto) 0.3 % Immature Gran # (Auto) 0.03 H (0.00-0.02) K/uL Neut # (Auto) 4.77 (1.4-6.5) K/uL Lymph # (Auto) 1.83 (1.2-3.4) K/uL [place] # (Auto) 1.16 H (0.11-0.59) K/uL Eos # (Auto) 0.09 (0-0.5) K/uL Baso # (Auto) 0.02 (0-0.2) K/uL Sodium 137 (136-145) mmol/L Potassium 3.2 L (3.5-5.1) mmol/L Chloride 100 (98-107) mmol/L Carbon Dioxide 31 (21-32) mmol/L Anion Gap 6.0 (3-11) BUN 3 L (7-18) mg/dl Creatinine 0.67 (0.6-1.4) mg/dl Est Cr Clr Drug Dosing 203.1 ml/min Est GFR ( Amer) 149.4 Est GFR (Non-Af Amer) 128.9 BUN/Creatinine Ratio 4.5 L (10-20) Glucose 111 H (70-99) mg/dl POC Glucose 71 (70-99) mg/dl Calcium 8.5 (8.5-10.1) mg/dl Phosphorus Magnesium Total Bilirubin 0.4 (0.2-1) mg/dl Direct Bilirubin < 0.1 (0-0.2) mg/dl AST 27 (15-37) U/L ALT 23 (12-78) U/L Alkaline Phosphatase 106 (45-117) U/L Total Protein 6.7 (6.4-8.2) gm/dl Albumin 2.6 L (3.4-5.0) gm/dl 07/14/19 07/14/19 07/13/19 Range/Units 03:52 03:50 23:35 WBC (4.8-10.8) K/uL RBC (4.7-6.1) M/uL Hgb (14.0-18.0) g/dL Hct (42-52) % MCV (80-100) fL MCH (25-34) pg MCHC (32-36) g/dL RDW Std Deviation (36.4-46.3) fL RDW Coeff of Edie (11.5-14.5) % Plt Count (130-400) K/uL MPV (7.4-10.4) fL Immature Gran % (Auto) % Neut % (Auto) % Lymph % (Auto) % [place] % (Auto) % Eos % (Auto) % Baso % (Auto) % Immature Gran # (Auto) (0.00-0.02) K/uL Neut # (Auto) (1.4-6.5) K/uL Lymph # (Auto) (1.2-3.4) K/uL [place] # (Auto) (0.11-0.59) K/uL Eos # (Auto) (0-0.5) K/uL Baso # (Auto) (0-0.2) K/uL Sodium (136-145) mmol/L Potassium (3.5-5.1) mmol/L Chloride (98-107) mmol/L Carbon Dioxide (21-32) mmol/L Anion Gap (3-11) BUN (7-18) mg/dl Creatinine (0.6-1.4) mg/dl Est Cr Clr Drug Dosing ml/min Est GFR ( Amer) Est GFR (Non-Af Amer) BUN/Creatinine Ratio (10-20) Glucose (70-99) mg/dl POC Glucose 68 L* 66 L* 75 (70-99) mg/dl Calcium (8.5-10.1) mg/dl Phosphorus Magnesium Total Bilirubin (0.2-1) mg/dl Direct Bilirubin (0-0.2) mg/dl AST (15-37) U/L ALT (12-78) U/L Alkaline Phosphatase (45-117) U/L Total Protein (6.4-8.2) gm/dl Albumin (3.4-5.0) gm/dl 07/13/19 07/13/19 Range/Units 20:03 16:39 WBC (4.8-10.8) K/uL RBC (4.7-6.1) M/uL Hgb (14.0-18.0) g/dL Hct (42-52) % MCV (80-100) fL MCH (25-34) pg MCHC (32-36) g/dL RDW Std Deviation (36.4-46.3) fL RDW Coeff of Edie (11.5-14.5) % Plt Count (130-400) K/uL MPV (7.4-10.4) fL Immature Gran % (Auto) % Neut % (Auto) % Lymph % (Auto) % [place] % (Auto) % Eos % (Auto) % Baso % (Auto) % Immature Gran # (Auto) (0.00-0.02) K/uL Neut # (Auto) (1.4-6.5) K/uL Lymph # (Auto) (1.2-3.4) K/uL [place] # (Auto) (0.11-0.59) K/uL Eos # (Auto) (0-0.5) K/uL Baso # (Auto) (0-0.2) K/uL Sodium (136-145) mmol/L Potassium (3.5-5.1) mmol/L Chloride (98-107) mmol/L Carbon Dioxide (21-32) mmol/L Anion Gap (3-11) BUN (7-18) mg/dl Creatinine (0.6-1.4) mg/dl Est Cr Clr Drug Dosing ml/min Est GFR ( Amer) Est GFR (Non-Af Amer) BUN/Creatinine Ratio (10-20) Glucose (70-99) mg/dl POC Glucose 104 H 159 H (70-99) mg/dl Calcium (8.5-10.1) mg/dl Phosphorus Magnesium Total Bilirubin (0.2-1) mg/dl Direct Bilirubin (0-0.2) mg/dl AST (15-37) U/L ALT (12-78) U/L Alkaline Phosphatase (45-117) U/L Total Protein (6.4-8.2) gm/dl Albumin (3.4-5.0) gm/dl Resident Activity Tracking Resident Involvement: Resident Care Provided Care Provided: Adult Hospital Medicine (1) DKA (diabetic ketoacidoses) Diabetes mellitus complication detail: without coma Diabetes mellitus type: type 1 Qualified Code(s): E10.10 - Type 1 diabetes mellitus with ketoacidosis without coma
[2019-07-14] MEDS ORDERED: TPN/PPN CONSULT PHARMACY PRN (13:08)
[2019-07-14 13:33] LABS: Phosphorus 3.3 mg/dl (2.5-4.9)
[2019-07-14] MEDS ORDERED: DEXTROSE 10% 1,000 ML IV PRN (14:06)
--- NOTE | 2019-07-14 15:28 | Pharmacy Report ---
Glycemic Control Progress Note - Date of Service July 14, 2019 - Scope Glycemic Pharmacist consulted for glycemic control to write orders per [facility] inpatient glycemic control protocol. - Objective Accuchecks BSG(last 24 hours):: 07/13/19 07/13/19 07/13/19 16:39 20:03 23:35 Glucose POC Glucose 159 H 104 H 75 07/14/19 07/14/19 07/14/19 03:50 03:52 04:14 Glucose POC Glucose 66 L* 68 L* 71 07/14/19 07/14/19 07/14/19 06:55 07:34 11:31 Glucose 111 H POC Glucose 104 H 132 H HbA1c:: Hemoglobin A1c 11.5 % (4.5-5.6) H 07/09/19 06:06 - Recent Pertinent Medications The patient is currently receiving: * Basal insulin: Lantus 50 units every 24 hours * Correctional Insulin: Novolog Correction per scale ACHS Goal Range: Low 120 mg/dL - High 160 mg/dL Correction Factor: 25 mg/dL/unit * Prandial insulin: Per carb ratio of 1 unit per 8 grams CHO consumed - Outpatient Anti-Diabetic Meds NONCOMPLIANT - Assessment & Plan ASSESSMENT: * See progress note from 07/09/2019 for more background info, in short: * Pt receiving SQ basal bolus insulin regimen for hyperglycemia secondary to baseline DM (outpatient regimen on hold). Patient has had significant N/V and has not tolerating oral intake for almost 1 week. With trial of orals today and yesterday, patient had several episodes of vomiting. Will start PPN transitioning to TPN via PICC tomorrow. * Patient is currently receiving an average of 55 units of insulin per day * 50 units of basal insulin * 5 units of prandial/correctional insulin * BSGs ranging 75 - 159 mg/dl over the past 24hrs * Changes needed to insulin regimen: * AM Fasting BSG = 104 mg/dl. This is in goal range for patient based on inpatient targets and co-morbidities. Therefore Basal insulin will be continued * Post-prandial BSGs are in range therefore no changes needed to CF/CR * True basal rate appears around 50 units/day. * Additional notes / comments: With start of PPN (transitioning to TPN tomorrow), plan for a carbohydrate ratio of 1 unit per 8 grams of dextrose in PPN. Will put 10 units of insulin in PPN. This is in additional to Lantus 50 units. PLAN FOR INPATIENT GLYCEMIC CONTROL: * Continuing Lantus 50 units SQ qPM * Continuing correction factor of 25 mg/dl/unit * Continuing carb ratio of 1 unit per 8 grams CHO consumed * Continuing goal range to Low 120 mg/dL - High 160 mg/dL * For PPN, put 10 units of Regular insulin into PPN for 120 gm of dextrose. * Please note that the plan above was derived based on current level of insulin resistance and hospital stress. These recommendations are appropriate for inpatient admission only. Plan of care upon discharge will need to be reassessed to avoid potential outpatient hypo/hyperglycemia. Thank you.
[2019-07-14] MEDS ORDERED: Custom Peripheral Pn 3,000 ML in TPN BAG 0 ML IV SCH (16:00)
--- NOTE | 2019-07-14 19:11 | Billing Data ---
Date of Service July 14, 2019 Coding Level of Care Code 92975 Subseq Hosp Care Lvl 3
[2019-07-14] MEDS: INSULIN GLARGINE SOLOSTAR 100 UNITS/ML 3 ML PEN SC SCH (21:11)
[2019-07-15] MEDS: ondansetron HCL 6 MG in DEXTROSE 5% 50 ML IV SCH (04:53)
[2019-07-15] MEDS: INSULIN ASPART 100 UNITS/ML 3 ML PEN SC SCH ×6 (04:55→23:51)
[2019-07-15 06:29] LABS: Albumin Level 2.7 gm/dl (3.4-5.0); BUN Creatinine Ratio 15.2 (10-20); Blood Urea Nitrogen 10 mg/dl (7-18); Carbon Dioxide 33 mmol/L (21-32); Chloride 97 mmol/L (98-107); Creatinine Clr Calc Pharmacy 197.2 ml/min; Est GFR (African American) 147.6; Est GFR (Non-African American) 127.4; Glucose 119 mg/dl (70-99); Magnesium 2.1 mg/dl (1.8-2.4); Potassium 3.8 mmol/L (3.5-5.1); Sodium 135 mmol/L (136-145)
[2019-07-15 06:31] LABS: Alanine Aminotransferase 27 U/L (12-78); Alkaline Phosphatase 109 U/L (45-117); Aspartate Aminotransferase 21 U/L (15-37); Bilirubin Direct < 0.1 mg/dl (0-0.2); Bilirubin,Total 0.4 mg/dl (0.2-1); Phosphorus 3.7 mg/dl (2.5-4.9); Total Protein 6.8 gm/dl (6.4-8.2); Triglycerides 164 mg/dl (0-150)
[2019-07-15] MEDS: BUDESONIDE 0.5 MG/2 ML VIAL (PULMICORT) NEB SCH (07:31)
[2019-07-15] MEDS: ENOXAPARIN INJ 40 MG/0.4 ML SYR SQ SCH (08:57)
[2019-07-15] MEDS: CHECK SCOPOLAMINE PATCH PLACEMENT SCH ×3 (08:57→23:28)
[2019-07-15] MEDS: PANTOprazole 40 MG TAB PO SCH ×2 (08:57→20:42)
--- NOTE | 2019-07-15 10:13 | Hospitalist Progress Note ---
Date of Service July 15, 2019 Assessment & Plan (1) DKA (diabetic ketoacidoses): Patient is a 29-year-old male with a past medical history of obesity, hypothyroidism/Elias's thyroiditis, poorly controlled type 1 diabetes, who presents to the emergency department for evaluation of hyperglycemia, nausea and vomiting in the setting of recent influenza infection and was diagnosed with diabetic ketoacidosis. 1. Intractable Vomiting - greatly improved today with pepcid, pantoprazole, GI cocktail yesterday as well as scheduled iV Zofran - if able to continue keeping food and fluids down can consider discharge in near future - 2. Influenza - Duo nebs and budesonide for respiratory assistance - Flutter valve/incentive spirometry - CT abd/pelv picked up a mild LLL pneumonitis likely 2/2 aspiration during emesis - Didn't finish Tamiflu 2/2 DKA and N/V; droplet precautions. 3. Diabetic ketoacidosis/DM1 - Patient is a poorly controlled type I diabetic, most recent A1c was 11.2. Insulin management per pharmacy.Will calculate home insulin needs based on sugar control today into tomorrow. Prior to admission was taking 50U lantus in AM with 1u:10g carbs at mealtime. - will continue diabetic education 5. Hx Elias's thyroiditis -Continue levothyroxine 150 mcg p.o. every morning 6. Dyslipidemia - likely secondary to uncontrolled DM1 - would benefit from statin for ACS protection 7. 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 Feeling better, eating better. Has not vomited Vitals noted, in general he is awake and alert pleasant no distress. Does appear quite fatigued. HEENT normocephalic atraumatic mucous membranes moist. Breathing is unlabored no accessory muscle use good effort. Extremities show no cyanosis or clubbing. Neuro shows no focal deficits. Intractable nausea and vomitingon the heels of having had DKA and influenzaseems to be nonspecific and may even be residual symptoms from the flu, versus some degree of upper GI mucosal illness brought on by the significant physiologic stress of what he has just went through. improving w escalated acid suppression and escalated prns. continue diet - if hold at current level of good PO intake, then hopefully home tomorrow Malnutritionacutehe had not eaten meaningfully in the last week. on PPN - TPN was ordered but then he started eating better and this won't be needed as long as his trend continues! Type 1 diabetescontinue insulin management Otherwise as above. anticipate home tomorrow as long as eating ok. Subjective Was able to eat a thick liquid breakfast today consisting of rice pudding and jello. Progressed to solid food at lunch (chicken, whole fruit, jello) and had no issues with nausea or vomiting. Will continue progression of regular diet and continue watching for symptoms. Review of Systems Constitutional: no fever, no chills, no body aches and no fatigue Respiratory: no cough and no dyspnea Cardiovascular: no chest pain, no dyspnea and no edema Gastrointestinal: no abdominal pain, no nausea, no vomiting, no constipation and no diarrhea/loose stools Physical Exam Constitutional: cooperative; no acute distress and not ill appearing Neck: normal visual inspection Respiratory: normal respiratory effort and able to speak in complete sentences; no respiratory distress, no labored breathing, no retractions, no cough and no audible wheezes Auscultation: lungs clear to auscultation bilaterally; no crackles, no rales, no rhonchi and no wheezes Cardiovascular: Rate/Rhythm: regular rate and regular rhythm Heart Sounds: normal S1 and normal S2; no gallop, no murmur and no cardiac rub Vessels: posterior tibial pulses present Extremities: no pedal edema and no edema Gastrointestinal (Abdomen): Inspection/Auscultation: abdomen normal to inspection and normal bowel sounds; abdomen not distended Percussion/Palpation: abdomen soft; abdomen nontender ("uncomfortable" with palpation), no guarding, abdomen not rigid and no abdominal mass Results & Data ([facility]) Vital Signs (Past 12 Hours) Vital Signs Temp Pulse Resp BP Pulse Ox 03/05/20 07:32 82 16 91 07/15/19 07:19 36.8 C 70 16 144/90 H 95 07/14/19 23:10 36.9 C 73 16 143/87 H 94 07/15/19 07/15/19 07/15/19 Range/Units 11:33 07:37 05:26 Sodium 135 L (136-145) mmol/L Potassium 3.8 D (3.5-5.1) mmol/L Chloride 97 L (98-107) mmol/L Carbon Dioxide 33 H (21-32) mmol/L Anion Gap 5.0 (3-11) BUN 10 D (7-18) mg/dl Creatinine 0.69 (0.6-1.4) mg/dl Est Cr Clr Drug Dosing 197.2 ml/min Est GFR ( Amer) 147.6 Est GFR (Non-Af Amer) 127.4 BUN/Creatinine Ratio 15.2 (10-20) Glucose 119 H (70-99) mg/dl POC Glucose 246 H 116 H (70-99) mg/dl Calcium 9.0 (8.5-10.1) mg/dl Phosphorus 3.7 (2.5-4.9) mg/dl Magnesium 2.1 (1.8-2.4) mg/dl Total Bilirubin 0.4 (0.2-1) mg/dl Direct Bilirubin < 0.1 (0-0.2) mg/dl AST 21 (15-37) U/L ALT 27 (12-78) U/L Alkaline Phosphatase 109 (45-117) U/L Total Protein 6.8 (6.4-8.2) gm/dl Albumin 2.7 L (3.4-5.0) gm/dl Triglycerides 164 H (0-150) mg/dl 07/15/19 07/14/19 07/14/19 Range/Units 04:49 23:30 20:17 Sodium (136-145) mmol/L Potassium (3.5-5.1) mmol/L Chloride (98-107) mmol/L Carbon Dioxide (21-32) mmol/L Anion Gap (3-11) BUN (7-18) mg/dl Creatinine (0.6-1.4) mg/dl Est Cr Clr Drug Dosing ml/min Est GFR ( Amer) Est GFR (Non-Af Amer) BUN/Creatinine Ratio (10-20) Glucose (70-99) mg/dl POC Glucose 111 H 249 H 350 H* (70-99) mg/dl Calcium (8.5-10.1) mg/dl Phosphorus (2.5-4.9) mg/dl Magnesium (1.8-2.4) mg/dl Total Bilirubin (0.2-1) mg/dl Direct Bilirubin (0-0.2) mg/dl AST (15-37) U/L ALT (12-78) U/L Alkaline Phosphatase (45-117) U/L Total Protein (6.4-8.2) gm/dl Albumin (3.4-5.0) gm/dl Triglycerides (0-150) mg/dl 07/14/19 07/14/19 07/14/19 Range/Units 20:16 16:37 13:03 Sodium (136-145) mmol/L Potassium (3.5-5.1) mmol/L Chloride (98-107) mmol/L Carbon Dioxide (21-32) mmol/L Anion Gap (3-11) BUN (7-18) mg/dl Creatinine (0.6-1.4) mg/dl Est Cr Clr Drug Dosing ml/min Est GFR ( Amer) Est GFR (Non-Af Amer) BUN/Creatinine Ratio (10-20) Glucose (70-99) mg/dl POC Glucose 351 H* 155 H (70-99) mg/dl Calcium (8.5-10.1) mg/dl Phosphorus 3.3 (2.5-4.9) mg/dl Magnesium 2.0 (1.8-2.4) mg/dl Total Bilirubin (0.2-1) mg/dl Direct Bilirubin (0-0.2) mg/dl AST (15-37) U/L ALT (12-78) U/L Alkaline Phosphatase (45-117) U/L Total Protein (6.4-8.2) gm/dl Albumin (3.4-5.0) gm/dl Triglycerides (0-150) mg/dl Resident Activity Tracking Resident Involvement: Resident Care Provided Care Provided: Adult [facility] (1) DKA (diabetic ketoacidoses) Diabetes mellitus complication detail: without coma Diabetes mellitus type: type 1 Qualified Code(s): E10.10 - Type 1 diabetes mellitus with ketoacidosis without coma
--- NOTE | 2019-07-15 10:34 | Pharmacy Report ---
Pharmacy Glycemic Short Note 2 - Date of Service July 15, 2019 - Glycemic Short BSG Results (Last 24 hours): 07/14/19 07/14/19 07/14/19 11:31 16:37 20:16 Glucose POC Glucose 132 H 155 H 351 H* 07/14/19 07/14/19 07/15/19 20:17 23:30 04:49 Glucose POC Glucose 350 H* 249 H 111 H 07/15/19 07/15/19 05:26 07:37 Glucose 119 H POC Glucose 116 H OUTPATIENT ANTIDIABETIC REGIMEN: * Lantus 50 units qHS * Novolog scale CF 35, CR 10 * A1c 11.5% 07/09/2019 ASSESSMENT: 07/14 * Mr. Lopez is currently receiving day #1 of PPN. Other than BSG spike last evening when the PN was initiated, BSGs have been stable * He received 50 units of basal, 12 units of correctional and 10 units of insulin in the PPN * Patient remains with minimal PO intake d/t N/V. Significant amount of emesis documented yesterday. * Patient is refusing PICC line so dextrose amount in PN will remain the same 07/13 * See progress note from 07/09/2019 for more background info, in short: * Pt receiving SQ basal bolus insulin regimen for hyperglycemia secondary to baseline DM (outpatient regimen on hold). Patient has had significant N/V and has not tolerating oral intake for almost 1 week. With trial of orals today and yesterday, patient had several episodes of vomiting. Will start PPN transitioning to TPN via PICC tomorrow. * Patient is currently receiving an average of 55 units of insulin per day * 50 units of basal insulin * 5 units of prandial/correctional insulin * BSGs ranging 75 - 159 mg/dl over the past 24hrs * Changes needed to insulin regimen: * AM Fasting BSG = 104 mg/dl. This is in goal range for patient based on inpatient targets and co-morbidities. Therefore Basal insulin will be continued * Post-prandial BSGs are in range therefore no changes needed to CF/CR * True basal rate appears around 50 units/day. * Additional notes / comments: With start of PPN (transitioning to TPN tomorrow), plan for a carbohydrate ratio of 1 unit per 8 grams of dextrose in PPN. Will put 10 units of insulin in PPN. This is in additional to Lantus 50 units. PLAN FOR INPATIENT GLYCEMIC CONTROL: * Continue Lantus 50 units qHS * Continue Novolog q4h * Goal 110-150 * CF 25 mg/dL/unit * CR 1 unit per 8 gm CHO * Increase insulin in PN to 15 units (dextrose content will remain at 120 gm)
[2019-07-15] MEDS ORDERED: ondansetron HCL 6 MG in DEXTROSE 5% 50 ML IV PRN (11:00)
[2019-07-15] MEDS ORDERED: Custom Peripheral Pn 3,000 ML in TPN BAG 0 ML IV SCH (16:00)
--- NOTE | 2019-07-15 17:02 | Billing Data ---
Date of Service July 15, 2019 Coding Level of Care Code 92118 Subseq Hosp Care Lvl 3
[2019-07-15] MEDS: INSULIN GLARGINE SOLOSTAR 100 UNITS/ML 3 ML PEN SC SCH (20:41)
[2019-07-15] MEDS: SCOPOLAMINE 1.5 MG TDSY TD SCH (20:44)
[2019-07-15 23:49] VITALS: TEMP 98.4
[2019-07-16] MEDS: CARBOHYDRATES FOR HYPOGLYCEMIA PO PRN (01:25)
[2019-07-16] MEDS: INSULIN ASPART 100 UNITS/ML 3 ML PEN SC SCH ×4 (04:47→12:33)
[2019-07-16 07:29] VITALS: BP 99/64; O2SAT 91
[2019-07-16 07:32] LABS: BUN Creatinine Ratio 21.2 (10-20); Calcium 8.9 mg/dl (8.5-10.1); Est GFR (African American) 138.2; Est GFR (Non-African American) 119.3; Phosphorus 3.7 mg/dl (2.5-4.9); Potassium 4.1 mmol/L (3.5-5.1)
[2019-07-16] MEDS: PANTOprazole 40 MG TAB PO SCH (08:15)
[2019-07-16] MEDS: ENOXAPARIN INJ 40 MG/0.4 ML SYR SQ SCH (08:16)
[2019-07-16] MEDS: CHECK SCOPOLAMINE PATCH PLACEMENT SCH (08:47)
[2019-07-16] MEDS ORDERED: FLUTICASONE FUROATE 100MCG 14 PUFFS/INHALER INH SCH (09:00)
--- NOTE | 2019-07-16 10:25 | Discharge Summary ---
Date of Service July 16, 2019 Admission HPI Per Admitting Provider Patient is a 29-year-old male with a past medical history of obesity, hypothyroidism/Elias's thyroiditis, poorly controlled type 1 diabetes, who presents to the emergency department for evaluation of hyperglycemia, nausea and vomiting in the setting of recent influenza infection and diagnosed with diabetic ketoacidosis. Patient was in his usual state of health until this past Friday when he began experiencing flu symptoms. He reported that they hit him like a train. He experience cough, congestion, malaise, muscle aches and pains, and other symptoms typical of flu. He presented to [facility] the and where he was diagnosed with influenza and started on Tamiflu. The patient did not modify his insulin regimen to account for his illness. He continued to be symptomatic and this morning developed nausea and vomiting. He has been nauseated and vomited throughout the entire day unable to keep any food down, with some associated abdominal pain, denies constipation, diarrhea, chest pressure, chest pain, shortness of breath, trouble breathing, other concerning signs or symptoms. The patient reported checking his blood sugars throughout the day and noted his highest value to be 400. Upon arrival to the emergency department labs were obtained and pertinent for a white count of 14.21 with a neutrophil predominance 11.73. Chemistries were notable for a sodium of 129, carbon dioxide of 12, creatinine of 1.49 glucose of 363, anion gap of 24, alkaline phosphatase of 160, total protein 9.5, lipase 30, beta hydroxybutyrate 88.42. Urinalysis demonstrated specific gravity of 1.031, 2+ protein, 3+ glucose, 4+ ketones, 1+ blood with hyaline casts and epithelial cells. A chest x-ray was obtained and was negative. The hospital service was consulted for admission for DKA in the setting of influenza. Upon evaluation the patient in the emergency department he appeared alert and oriented however stuporous and frequently will fall asleep mid conversation. The history described above was obtained through combinations of talking with the patient and his mother who was present in the room. Given the patient's fluctuating mental status the patient will be admitted to the ICU. Acute concerns related to influenza status, and mental status. All questions answered Primary Care Provider: Zaynab Gomez MD Admission Exam Per Admitting Provider General: Somnolent gentleman appearing his stated age lying in bed coughing HEENT: Normocephalic atraumatic Neck: Normal to visual inspection, trachea midline, negative JVD Cardiac: Tachycardic otherwise regular rate and rhythm, no murmurs rubs or gallops, normal S1, normal S2, I did not appreciate any significant pedal edema, nor calf tenderness Respiratory: Clear to auscultation bilaterally with symmetrical chest expansion bilaterally a bit tachypneic at times, no increased work of breathing GI: Bowel sounds present hypoactive in nature otherwise soft, nontender, nondistended MSK: Moves all extremities Skin: Excoriations and scars throughout his body supposedly gets bug bites and picks at them Neuro: Intermittently alert and oriented x4 was able to perform executive functions, however would frequently fall asleep during the interview Psych: Calm and cooperative Principal Diagnosis DKA, Influenza, Intractable Nausea and Vomiting Discharge Exam Constitutional cooperative; no acute distress and not ill appearing Neck normal visual inspection Respiratory normal respiratory effort and able to speak in complete sentences; no respiratory distress, no labored breathing, no retractions, no cough and no audible wheezes Auscultation: lungs clear to auscultation bilaterally; no crackles, no rales, no rhonchi and no wheezes Cardiovascular Rate/Rhythm: regular rate and regular rhythm Heart Sounds: normal S1 and normal S2; no gallop, no murmur and no cardiac rub Vessels: posterior tibial pulses present Extremities: no pedal edema and no edema Gastrointestinal (Abdomen) Inspection/Auscultation: abdomen normal to inspection and normal bowel sounds; abdomen not distended Percussion/Palpation: abdomen soft; abdomen nontender, no guarding, abdomen not rigid and no abdominal mass Discharge Data Allergies Allergy/AdvReac Type Severity Reaction Status Date / Time No Known Allergies Allergy Verified 07/19/19 15:43 Consultations 07/09/19 00:35 ED Decision to Admit Stat 07/09/19 02:08 Consult Aerial Survey Technician Routine 07/12/19 09:08 Consult Gastroenterology Routine Ordered Studies 07/11/19 14:43 US liver Urgent 07/12/19 15:10 CT abd pelvis IV con only Urgent Hospital Course (1) DKA (diabetic ketoacidoses): Patient is a 29-year-old male with a past medical history of obesity, hypothyroidism/Elias's thyroiditis, poorly controlled type 1 diabetes, who presents to the emergency department for evaluation of hyperglycemia, nausea and vomiting in the setting of recent influenza infection and was diagnosed with diabetic ketoacidosis. Briefly admitted to ICU on insulin drip until anion gap closed, and then transferred to medical floor. 1. Intractable Vomiting - GB US negative for hepatic or gallbladder disease - CT abd/pelv negative for bowel wall thickening or obstruction. Noted calci fications of the vas deferens, which can be seen in the setting of diabetes. - most likely secondary to influenza running its course as Tamiflu was discontinued on admission to the ICU. Required scheduled zofran IV in addition to scopolamine patch to regain control of nausea. - Improvement in nausea after escalation from famotidine to 40mg Pantoprazole BID. Seen by GI, EGD postponed to outpatient if patient continues to be symptomatic. 2. Diabetic ketoacidosis/DM1 - A1c on 11.2 at admission Insulin drip initially and then transitioned to subQ as sugars balanced out. Sent home on 50 u lantus QAM and 1:8 carb ratio for mealtime coverage. - strongly advised endocrine and PCP follow up for diabetic control All other medical conditions controlled per home regimens. 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, with long-term current use of insulin: (4) Elias's thyroiditis: (5) Dyslipidemia: (6) Intractable vomiting: Total Time Total Time Spent Total Time Spent (In Minutes): Discharge Plan Discharge Items Patient Disposition: Home - Self-Care Reason For Visit: DKA/FLU B Discharge Diagnosis: DKA, Influenza Activity: Resume your previous activity Non-emergency contact: Primary Care Provider Call non-emergency contact if: you have any medication questions Follow-up/Referrals: Zaynab Gomez MD [Primary Care Provider] - 07/21/19 10:30 am (Your appointment with Marta Johnson in on July 21, 2019 at 10:30 a.m. Please arrive 15 minutes early for your appointment. If you need to reschedule your appointment call ) Diet: Carb Count or DM1 Ambulatory Orders: Basic Metabolic Panel (Routine) Timeframe: 1 Week Location: Determined by Patient Ordered By: Fadumo Pruitt Attending Provider Instructions: You were brought to the hospital for acute nausea and vomiting secondary to recent infection with flu as well as ongoing diabetic ketoacidosis. Control of your sugars and DKA required a brief ICU stay wherein you received IV insulin and care as needed. After you were moved back to the medical floors, we tried a number of regimens to control your nausea and vomiting. Given your positive response to the maalox and PPI, you likely have a degree of inflammation in your stomach which was worsening the nausea from the flu and not having eaten for multiple days. We advise that you continue using 40 mg omeprazole twice a day for the next 3-4 weeks. After 3-4 weeks you can try to space out doses to once every 2 days or cut down to one pill a day and then eventually stop the medication. If you experience rebound nausea or stomach pain while you're trying to reduce the medication, go back to the previous dosing regimen. If you experience these symptoms we recommend you follow up with a drug safety assistant for evaluation. You were seen by [facility] while in the hospital and can follow up with them as needed. Regarding your Type 1 Diabetes: your A1c in the hospital was 11.2, which means the last 3 months was in the upper 200s, which is far higher than recommended. You were sent home on a regimen of 50 U lantus in the AM, with a ratio of 1unit insulin: 8 g carb for meal coverage. Continue measuring your blood sugars at home and follow up with your [employer] Central Office Installer regarding plans to adjust and maintenance of your disease going forward. It is critical that you regain control of your blood sugars in order to prevent repeat episodes of DKA, as well as decrease your risk of heart attack and stroke in the future. Pending Studies at Discharge: No Stand-Alone Forms: My [facility] [email or web address], Work/School Release (Inpt), Smoking Cessation Medications and DC Order Prescriptions: New pantoprazole 40 mg Tablet,Delayed Release (Dr/Ec) 40 mg PO BID Qty: 60 RF: 0 Continued Lantus Solostar U-100 Insulin 100 unit/mL (3 mL) insulin pen See Rx Instructions SQ .COMPLEX 90 Days Qty: 3 RF: 1 insulin aspart U-100 100 unit/mL (3 mL) insulin pen See Rx Instructions .ROUTE .COMPLEX Qty: 30 RF: 0 levothyroxine 150 mcg tablet 150 mcg PO QAM RF: 0 ergocalciferol (vitamin D2) 50,000 unit capsule 50,000 units PO 3XWK RF: 0 Discontinued oseltamivir 75 mg capsule 75 mg PO BID PRN (Reason: Inflluenza positive) 5 Days Qty: 10 RF: 0 No Action promethazine 25 mg tablet 25 mg PO BID PRN (Reason: nausea and vomiting) Qty: 20 RF: 0 ondansetron 4 mg tablet,disintegrating 4 mg PO Q8H RF: 0 Discharge Orders: Discharge Order (Routine); Ordered 07/16/19 Ordered By: Fadumo Ann Admission Data Admit Date/Time: 07/09/19 02:08 Attending Provider: Valentin Resendez Admit Provider: Cholo Bryan I. Primary Care Provider: Zaynab Gomez V. Other Providers: Fadumo Ann ; Francesco Byrd ; Omer Hilliard ; Bret Trevino ; Karthikeyan Santillan Other Interventions: Discharge Summary Assessment (RN) Last Done: 07/16/19 12:15 DC Date/Time DO NOT enter until pt leaves facility: 07/16/19 13:51 Supervising Physician Co-Signing Physician Notes I personally saw and examined the patient. I verified all rivas points and agree with resident physician Lynda Ann MD with the following exceptions and/or additions: None No further nausea or vomiting. Patient tolerating regular diabetic diet. Not needing regular anti-nausea medication at this time. Will prescribe ondansetron at home PRN. Total time spent on discharge independent of resident; 35 minutes, 50 percent of that time is spent discussing with the patient and family the diagnosis, prognosis, risk and benefits, instructions for management, and education. Resident Activity Tracking Resident Involvement: Resident Care Provided Care Provided: Adult Hospital Medicine
[2019-07-16 12:19] VITALS: PULSE 76
--- NOTE | 2019-07-16 13:37 | Pharmacy Report ---
Pharmacy Glycemic Short Note 2 - Date of Service July 16, 2019 - Glycemic Short BSG Results (Last 24 hours): 07/15/19 07/15/19 07/15/19 16:08 20:17 23:27 Glucose POC Glucose 224 H 268 H 107 H 07/16/19 07/16/19 07/16/19 01:22 01:30 01:48 Glucose POC Glucose 63 L* 71 78 07/16/19 07/16/19 07/16/19 04:14 06:22 08:07 Glucose 129 H POC Glucose 115 H 174 H 07/16/19 07/16/19 11:56 12:07 Glucose POC Glucose 320 H* 340 H* OUTPATIENT ANTIDIABETIC REGIMEN: * Lantus 50 units qHS * Novolog scale CF 35, CR 10 * A1c 11.5% 07/09/2019 ASSESSMENT: 07/15 * Mr. Lopez is no longer receiving PN. This was stopped last evening as his diet had improved. * His BSG dropped to 63 mg/dL overnight. This may have been due to abruptly stopping the PN and/or over-correction at HS. * Total insulin received yesterday: 50 units of basal + 49 units of bolus (including insulin in PN) * Fasting = 174 mg/dL - will not change basal dose * Postprandials elevated today after CR was loosened. I have tightened this back up starting w/ lunch. 07/14 * Mr. Lopez is currently receiving day #1 of PPN. Other than BSG spike last evening when the PN was initiated, BSGs have been stable * He received 50 units of basal, 12 units of correctional and 10 units of insulin in the PPN * Patient remains with minimal PO intake d/t N/V. Significant amount of emesis documented yesterday. * Patient is refusing PICC line so dextrose amount in PN will remain the same 07/13 * See progress note from 07/09/2019 for more background info, in short: * Pt receiving SQ basal bolus insulin regimen for hyperglycemia secondary to baseline DM (outpatient regimen on hold). Patient has had significant N/V and has not tolerating oral intake for almost 1 week. With trial of orals today and yesterday, patient had several episodes of vomiting. Will start PPN transitioning to TPN via PICC tomorrow. * Patient is currently receiving an average of 55 units of insulin per day * 50 units of basal insulin * 5 units of prandial/correctional insulin * BSGs ranging 75 - 159 mg/dl over the past 24hrs * Changes needed to insulin regimen: * AM Fasting BSG = 104 mg/dl. This is in goal range for patient based on in patient targets and co-morbidities. Therefore Basal insulin will be continued * Post-prandial BSGs are in range therefore no changes needed to CF/CR * True basal rate appears around 50 units/day. * Additional notes / comments: With start of PPN (transitioning to TPN tomorrow), plan for a carbohydrate ratio of 1 unit per 8 grams of dextrose in PPN. Will put 10 units of insulin in PPN. This is in additional to Lantus 50 units. PLAN FOR INPATIENT GLYCEMIC CONTROL: * Continue Lantus 50 units qHS * Novolog ACHS * Goal 110-150 * CF 30 mg/dL/unit (loosen) * CR 1 unit per 8 gm CHO Discharge Recommendations: * A1c 11.5% on 07/09/19 * Goal A1c < 7% based on age/comorbidities * Patient follows with [facility] End[facility] and has had poorly controlled diabetes for quite some time. Recommend to continue Lantus 50 units qHS on discharge. In agreement with plan to tighten CR to 8 on discharge. * I confirmed with CDE that patient will be scheduled with outpatient endo in the near future for close follow up
== END 2019-07-16 13:51 | disposition home or self-care (01) | DRG 638 ==
LOC: ED 21:59 → SUATTDRO 07-09 02:08 → 1E 07-09 02:08 → 4W 07-10 15:30

== ENCOUNTER 2022-06-02 13:41 | Observation (INO) ==
[2022-06-02] MEDS ORDERED: SODIUM CHLORIDE 0.9% 1000ML 1,000 ML IV ONE ×2 (14:00→15:15)
[2022-06-02] MEDS ORDERED: ONDANSETRON INJ 2 MG/ML 2 ML VIAL IV STA (14:17)
--- NOTE | 2022-06-02 14:31 | Emergency Department Note ---
History of Present Illness General Chief complaint: Vomiting Stated complaint: COVID POSITIVE, VOMITING, HEADACHE Time Seen by Provider: 06/02/22 13:52 Source: patient Mode of arrival: ambulatory Limitations: no limitations History of Present Illness The patient is a 31-year-old male who presents to the ED for evaluation of vomiting every 2 hours which started Friday night. The patient has a history of DMI, tested positive for COVID with an at home test Friday. He reports taking an at home ketone urine test which resulted at highest level. He denies any abdominal pain, states increased thirst and urination. He uses a continuous glu cose monitoring device which he states has been reading between 120-200 with a self reported A1C of 9. He states he is not currently taking his basal insulin for concern of "bothering anyone," as he has been quarantining in his bedroom. He denies any sob, chest pain, diaphoresis. He did receive the initial COVID-19 vaccines but has not received any boosters. Home Medications Medication Instructions Recorded Confirmed Type ergocalciferol (vitamin D2) 1,250 50,000 unit PO 3XWK #12 caps 01/06/21 06/02/22 Rx mcg (50,000 unit) capsule blood sugar diagnostic (FreeStyle 04/30/21 04/30/22 History Lite Strips) pen needle, diabetic 32 gauge x #100 ea 05/14/21 04/30/22 Rx 5/32" (BD Ultra-Fine Kayla Pen Needle) empagliflozin 25 mg tablet 25 mg PO DAILY #30 tabs 10/30/21 06/02/22 Rx (Jardiance) insulin aspart U-100 100 unit/mL 0 sliding scale dose subcut TIDM 01/01/22 06/02/22 History (3 mL) subcutaneous pen (Novolog FlexPen U-100 Insulin aspart) insulin glargine 100 unit/mL (3 50 unit (0.5 mL) subcut QAM #15 mL 01/31/22 06/02/22 Rx mL) subcutaneous pen (Lantus Solostar U-100 Insulin) lisinopril 40 mg tablet 40 mg PO DAILY #30 tabs 02/07/22 06/02/22 Rx FreeStyle Halie 2 Sensor (flash #2 ea 03/07/22 04/30/22 Rx glucose sensor) flash glucose sensor (FreeStyle 04/24/22 04/30/22 History Halie 2 Sensor kit) atorvastatin 10 mg tablet 10 mg PO DAILY #30 tabs 05/09/22 06/02/22 Rx levothyroxine 175 mcg tablet 175 mcg PO DAILY #30 tabs 05/09/22 06/02/22 Rx Allergies Allergy/AdvReac Type Severity Reaction Status Date / Time No Known Allergies Allergy Verified 06/02/22 16:27 Past Med/Surg History Medical History Albuminuria Diabetes type 1, uncontrolled Diabetic nephropathy associated with type 1 diabetes mellitus Diabetic peripheral neuropathy associated with type 1 diabetes mellitus DM type 1 (diabetes mellitus, type 1) Elias's thyroiditis History of COVID-19 04-04-20 TESTED + ([facility]) "TESTED FOR WORK PROTOCOL" HTN (hypertension) Hypothyroidism Leg wound, left Proliferative diabetic retinopathy associated with type 1 diabetes mellitus Surgical History History of vitrectomy LEFT History of wisdom tooth extraction Nausea and vomiting after administration of anesthetic agent Family History Grandfather Diabetes Aunt Diabetes Other No family history of adverse response to anesthesia Denies family history of Ovarian cancer Prostate cancer Myocardial infarction Breast cancer Lung cancer Colorectal cancer Stroke Social History Smoking Status: Never smoker Second Hand Exposure: No; Hx Alcohol Use: Yes Alcohol type: hard liquor Hx Substance Use: No Preferred Language: [place] Communication Ability: Effective Visual Impairment: Limited Hearing Ability: Normal Rn Obgyn Required: No Beliefs That Will Affect Care: None marital status: Current Living Situation: Family current occupational status: employed 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 Safe at Home: Yes Childhood Exposure to Second-Hand Smoke: No Assistive Devices: Glasses Review of Systems A total of 10 systems reviewed and were otherwise negative Physical Exam Vital Signs Vital Signs - 24 hr 06/02/22 13:44 06/02/22 14:41 06/02/22 14:41 Temperature 36.4 C L Temperature Source Temporal Artery Scan Pulse Rate 89 Respiratory Rate 18 18 Respiratory Effort / Characteristics Non-Labored Spontaneous Respiratory Depth Normal Respiratory Pattern Regular Blood Pressure 140/89 Blood Pressure [Left Arm] 121/78 Blood Pressure Mean 106 Blood Pressure Mean [Left Arm] 92 Blood Pressure Position [Left Arm] Lying Pulse Oximetry 98 99 99 Oxygen Delivery Method Room Air Room Air Room Air Sepsis Recent Fever Within 48 Hours No Sepsis New/Unexplained Change in Mental Status N/A Sepsis Action Taken by Nursing No Action Required VITALS: Vitals are noted on the nurse's note and reviewed by myself. GENERAL: This is a 31-year-old male, lying on his side in bed, in no significant distress. SKIN: The skin was without rashes, erythema, edema, or bruising. EARS: External auditory canals clear, tympanic membranes pearly lopez without erythema or effusion bilaterally. EYES: Pupils equal round and reactive to light and accommodation. MOUTH: Mucous membranes dry. NECK: Supple without nuchal rigidity. No lymphadenopathy. HEART: Regular rate and rhythm without murmurs gallops or rubs. LUNGS: Clear to auscultation bilaterally without wheezes, rales or rhonchi. No retractions or accessory muscle use. ABDOMEN: Positive bowel sounds x 4. Soft, nontender. NEURO: Patient was alert and oriented to person place and time. Course Administered Medications Insulin Human Regular 250 (units/ Sodium Chloride) 250 mls @ 5 mls/hr IV .Q24H EDUARD; Protocol Stop: 07/02/22 16:29 Last Titration: 06/02/22 20:29 Dose: 4 units/hr, 4 mls/hr Documented By: MARITA Co-signed By: ANA Titration: 06/02/22 19:33 Dose: 4 units/hr, 4 mls/hr Documented By: MARITA Co-signed By: NAA Admin: 06/02/22 17:08 Dose: 5 units/hr, 5 mls/hr Documented By: MARITA Co-signed By: JOAN Potassium Chloride/Dextrose/Sod Cl (D5nss + 20meq Kcl) 20 meq in 1,000 mls @ 125 mls/hr IV .Q8H EDUARD; Protocol Stop: 07/02/22 16:29 Last Admin: 06/02/22 17:04 Dose: 125 mls/hr Documented By: MARITA Insulin Aspart (Insulin Aspart Per Unit) 0 units SC ACHS EDUARD Stop: 07/02/22 16:29 Last Admin: 06/02/22 18:18 Dose: Not Given Documented By: MARITA Ondansetron HCl (Ondansetron Inj 2 Mg/Ml 2 Ml Vial) 4 mg IV Q4H PRN PRN Reason: Nausea Stop: 07/02/22 19:35 Last Admin: 06/02/22 20:06 Dose: 4 mg Documented By: MARITA Discontinued Medications Sodium Chloride (Nss 1000ml) 1,000 mls @ 999 mls/hr IV .Q1H1M ONE Stop: 06/02/22 15:00 Last Infusion: 06/02/22 16:50 Dose: 0 mls/hr Documented By: Admin: 06/02/22 14:37 Dose: 999 mls/hr Documented By: MARITA Sodium Chloride (Nss 1000ml) 1,000 mls @ 999 mls/hr IV .Q1H1M ONE Stop: 06/02/22 16:15 Last Infusion: 06/02/22 19:41 Dose: 0 mls/hr Documented By: Admin: 06/02/22 16:18 Dose: 999 mls/hr Documented By: MARITA Promethazine HCl (Phenergan) 12.5 mg in 50.5 mls @ 202 mls/hr IV NOW STA Stop: 06/02/22 16:23 Last Infusion: 06/02/22 16:41 Dose: 0 mls/hr Documented By: Admin: 06/02/22 16:15 Dose: 202 mls/hr Documented By: MARITA Ondansetron HCl (Ondansetron Inj 2 Mg/Ml 2 Ml Vial) 4 mg IV NOW STA Stop: 06/02/22 14:18 Last Admin: 06/02/22 14:37 Dose: 4 mg Documented By: MARITA Medical Decision Making Differential Diagnosis Gastroenteritis, food borne illness, infections, appendicitis, diverticulitis, inflammatory bowel disease, obstruction, GI bleed, biliary pathology, volvulus, as well as other pathologies. Home Medications Current Medication List: was personally reviewed by me Laboratory Data Attestation: I reviewed the patient's lab results. Result diagrams: 06/02/22 14:34 06/02/22 14:34 Lab Results 06/02/22 06/02/22 06/02/22 Range/Units 14:22 14:34 14:34 WBC (4.8-10.8) K/ul RBC (4.63-6.08) M/uL Hgb (14.0-18.0) g/dl Hct (40.1-51.0) % MCV (80.0-100.0) fL MCH (25.0-34.0) pg MCHC (32.0-36.0) g/dL RDW Std Deviation (36.4-46.3) fL RDW Coeff of Edie (11.5-14.5) % Plt Count (130-400) K/uL MPV (9.4-12.4) fL Immature Gran % (Auto) % Neut % (Auto) % Lymph % (Auto) % Wharton % (Auto) % Eos % (Auto) % Baso % (Auto) % Neut # (Auto) (1.4-6.5) K/uL Lymph # (Auto) (1.2-3.4) K/uL Wharton # (Auto) (0.24-0.82) K/uL Eos # (Auto) (0-0.50) K/uL Baso # (Auto) (0-0.2) K/uL Immature Gran # (Auto) (0.00-0.02) K/uL VBG pH 7.23 L (7.36-7.41) VBG pCO2 47 (38-50) mmHg VBG pO2 26 mmHg VBG HCO3 20 mmol/L VBG O2 Saturation < 60.0 % VBG Base Excess -7.9 mEq/L Sodium 138 (136-145) mmol/L Potassium 4.6 (3.5-5.1) mmol/L Chloride 101 (98-107) mmol/L Carbon Dioxide 20 L (21-32) mmol/L Anion Gap 17 H (3-11) BUN 35 H (6-23) mg/dl Creatinine 1.30 (0.6-1.4) mg/dl Est Cr Clr Drug Dosing 103.0 ml/min Est GFR ( Amer) 83.7 ml/min Est GFR (Non-Af Amer) 72.2 ml/min BUN/Creatinine Ratio 26.9 H (10-20) Glucose 164 H (70-99(Fasting)) mg/dl POC Glucose 174 H (70-99) mg/dl Calcium 9.5 (8.5-10.1) mg/dl Phosphorus 3.6 (2.5-4.9) mg/dl Magnesium 2.4 (1.7-2.4) mg/dl Total Bilirubin 0.5 (0.2-1.0) mg/dl AST 23 (13-39) U/L ALT 24 (7-52) U/L Alkaline Phosphatase 135 H (34-104) U/L Total Protein 8.2 (6.0-8.3) gm/dl Albumin 4.5 (3.4-5.0) gm/dl Globulin 3.7 (2.5-4.0) gm/dl Albumin/Globulin Ratio 1.2 (0.9-2) Urine Color Urine Appearance (Clear) Urine pH (4.5-7.5) Ur Specific [place] (1.000-1.030) Urine Protein (Negative) Urine Glucose (UA) (Negative) Urine Ketones (Negative) Urine Blood (Negative) Urine Nitrite (Negative) Urine Bilirubin (Negative) Urine Urobilinogen (Negative) Ur Leukocyte Esterase (Negative) Urine WBC (Auto) (0-5) /hpf Urine RBC (Auto) (0-4) /hpf U Hyaline Cast (Auto) (0-5) /lpf U Epithel Cells (Auto) (0-5) /lpf Urine Bacteria (Auto) (Negative) Granular Casts (0) /lpf SARS-CoV-2, RNA, NAAT (NEGATIVE) 06/02/22 06/02/22 06/02/22 Range/Units 14:34 14:40 16:20 WBC 11.52 H (4.8-10.8) K/ul RBC 5.48 (4.63-6.08) M/uL Hgb 15.9 (14.0-18.0) g/dl Hct 45.4 (40.1-51.0) % MCV 82.8 (80.0-100.0) fL MCH 29.0 (25.0-34.0) pg MCHC 35.0 (32.0-36.0) g/dL RDW Std Deviation 40.7 (36.4-46.3) fL RDW Coeff of Edie 13.5 (11.5-14.5) % Plt Count 298 (130-400) K/uL MPV 10.5 (9.4-12.4) fL Immature Gran % (Auto) 0.6 % Neut % (Auto) 72.8 % Lymph % (Auto) 14.4 % Wharton % (Auto) 12.1 % Eos % (Auto) 0.0 % Baso % (Auto) 0.1 % Neut # (Auto) 8.39 H (1.4-6.5) K/uL Lymph # (Auto) 1.66 (1.2-3.4) K/uL Wharton # (Auto) 1.39 H (0.24-0.82) K/uL Eos # (Auto) 0.00 (0-0.50) K/uL Baso # (Auto) 0.01 (0-0.2) K/uL Immature Gran # (Auto) 0.07 H (0.00-0.02) K/uL VBG pH (7.36-7.41) VBG pCO2 (38-50) mmHg VBG pO2 mmHg VBG HCO3 mmol/L VBG O2 Saturation % VBG Base Excess mEq/L Sodium (136-145) mmol/L Potassium (3.5-5.1) mmol/L Chloride (98-107) mmol/L Carbon Dioxide (21-32) mmol/L Anion Gap (3-11) BUN (6-23) mg/dl Creatinine (0.6-1.4) mg/dl Est Cr Clr Drug Dosing ml/min Est GFR ( Amer) ml/min Est GFR (Non-Af Amer) ml/min BUN/Creatinine Ratio (10-20) Glucose (70-99(Fasting)) mg/dl POC Glucose (70-99) mg/dl Calcium (8.5-10.1) mg/dl Phosphorus (2.5-4.9) mg/dl Magnesium (1.7-2.4) mg/dl Total Bilirubin (0.2-1.0) mg/dl AST (13-39) U/L ALT (7-52) U/L Alkaline Phosphatase (34-104) U/L Total Protein (6.0-8.3) gm/dl Albumin (3.4-5.0) gm/dl Globulin (2.5-4.0) gm/dl Albumin/Globulin Ratio (0.9-2) Urine Color Yellow Urine Appearance Clear (Clear) Urine pH 5.0 (4.5-7.5) Ur Specific [place] 1.024 (1.000-1.030) Urine Protein 3+ H (Negative) Urine Glucose (UA) 3+ H (Negative) Urine Ketones 4+ H (Negative) Urine Blood Trace H (Negative) Urine Nitrite Negative (Negative) Urine Bilirubin Negative (Negative) Urine Urobilinogen Negative (Negative) Ur Leukocyte Esterase Negative (Negative) Urine WBC (Auto) 1-5 (0-5) /hpf Urine RBC (Auto) 0-4 (0-4) /hpf U Hyaline Cast (Auto) 10-30 H (0-5) /lpf U Epithel Cells (Auto) 20-30 H (0-5) /lpf Urine Bacteria (Auto) Negative (Negative) Granular Casts 1-5 H (0) /lpf SARS-CoV-2, RNA, NAAT POSITIVE A* (NEGATIVE) Imaging Data Attestation: I personally reviewed and interpreted this imaging study as follows: Radiologist's Impression: Chest X-Ray 06/02/22 14:01 XR chest 1V portable HISTORY: 31 years-old Male covid, sob acute shortness of breath COMPARISON: Chest radiograph 07/08/2019 TECHNIQUE: AP view of the chest FINDINGS: Cardiomediastinal and hilar silhouettes are within normal limits. No pneumothorax, pleural effusion, focal airspace consolidation or overt pulmonary edema. Bones of the chest appear grossly intact. IMPRESSION: No acute process. ACT 112: Negative or not required by law. The above report was generated using voice recognition software. It may contain grammatical, syntax or spelling errors. Electronically signed by: Ney Velasquez M.D. 06/02/2022 2:44 PM MDM Narrative Continuous manager monitoring: Order was placed for continuous manager monitoring. Patient was placed on the manager monitoring. Patient was noted to be in normal sinus rhythm at an initial rate of 90 bpm. The patient is a 31-year-old male who presents today complaining of COVID-19 and concern for DKA. Patient had a positive home COVID test. He was found to be in somewhat mild DKA with pH of 7.23, anion gap of 17 and bicarb of 20. Glucose was surprisingly not significantly elevated at 164. Chest x-ray shows no evidence of pneumonia. COVID-19 test here was also positive. Patient initially treated with 2 L of IV fluids. He was given Zofran but did have persistent vomiting after this. He was given a dose of Phenergan. [facility] for [facility] care. He was started on an insulin drip after discussion with the ED pharmacist. Impression & Plan DKA (diabetic ketoacidosis), COVID-19 Discharge Plan Visit Data Chief Complaint: Vomiting Stated Complaint: COVID POSITIVE, VOMITING, HEADACHE ED Provider: Bret Ortez ED Midlevel Provider: Fatemeh Bar Discharge Problem: DKA (diabetic ketoacidosis), COVID-19 Patient Disposition: Admitted As Inpatient Discharge Instructions Interventions: ED Discharge Assessment Last Done: 06/02/22 20:36 : DKA (diabetic ketoacidosis) Qualifiers: Diabetes mellitus type: type 1 Diabetes mellitus complication detail: without coma Qualified Code(s): E10.10 - Type 1 diabetes mellitus with ketoacidosis without coma
[2022-06-02 14:45] LABS: Base Excess VBG -7.9 mEq/L; Basophils # (auto) 0.01 K/uL (0-0.2); Basophils % (auto) 0.1 %; HCO3 VBG 20 mmol/L; Hematocrit (blood only) 45.4 % (40.1-51.0); Hemoglobin 15.9 g/dl (14.0-18.0); Immature Granulocytes # (auto) 0.07 K/uL (0.00-0.02); Immature Granulocytes % (auto) 0.6 %; Lymphocytes # (auto) 1.66 K/uL (1.2-3.4); Lymphocytes % (auto) 14.4 %; Mean Corpuscular Volume 82.8 fL (80.0-100.0); Mean Platelet Volume 10.5 fL (9.4-12.4); Monocytes # (auto) 1.39 K/uL (0.24-0.82); Monocytes % (auto) 12.1 %; Neutrophils # (auto) 8.39 K/uL (1.4-6.5); Neutrophils % (auto) 72.8 %; Oxygen Saturation VBG < 60.0 %; PCO2 VBG 47 mmHg (38-50); PO2 VBG 26 mmHg; Platelet Count 298 K/uL (130-400); RDW Coefficient of Variation 13.5 % (11.5-14.5); RDW Standard Deviation 40.7 fL (36.4-46.3); Red Blood Count 5.48 M/uL (4.63-6.08); White Blood Count 11.52 K/ul (4.8-10.8); pH VBG 7.23 (7.36-7.41)
--- NOTE | 2022-06-02 14:45 | XRay Report ---
XR chest 1V portable HISTORY: 31 years-old Male covid, sob acute shortness of breath COMPARISON: Chest radiograph 07/08/2019 TECHNIQUE: AP view of the chest FINDINGS: Cardiomediastinal and hilar silhouettes are within normal limits. No pneumothorax, pleural effusion, focal airspace consolidation or overt pulmonary edema. Bones of the chest appear grossly intact. IMPRESSION: No acute process. ACT 112: Negative or not required by law. The above report was generated using voice recognition software. It may contain grammatical, syntax o r spelling errors. Electronically signed by: Ney Vleasquez M.D. 06/02/2022 2:44 PM
[2022-06-02 15:01] LABS: Appearance Urine Clear (Clear); Bacteria Urine Automated Negative (Negative); Bilirubin Urine Negative (Negative); Blood Urine Trace (Negative); Color Urine Yellow; Epithelial Cell Urine Auto 20-30 /lpf (0-5); Glucose Urine UA 3+ (Negative); Ketones Urine 4+ (Negative); Leukocyte Esterase Urine Negative (Negative); Nitrite Urine Negative (Negative); Protein Urine 3+ (Negative); RBC Urine Automated 0-4 /hpf (0-4); Specific Gravity Urine 1.024 (1.000-1.030); Urobilinogen Urine Negative (Negative)
[2022-06-02 15:07] LABS: Albumin Globulin Ratio 1.2 (0.9-2); Albumin Level 4.5 gm/dl (3.4-5.0); BUN Creatinine Ratio 26.9 (10-20); Bilirubin,Total 0.5 mg/dl (0.2-1.0); Calcium 9.5 mg/dl (8.5-10.1); Est GFR (African American) 83.7 ml/min; Est GFR (Non-African American) 72.2 ml/min; Globulin 3.7 gm/dl (2.5-4.0); Magnesium 2.4 mg/dl (1.7-2.4); Phosphorus 3.6 mg/dl (2.5-4.9); Potassium 4.6 mmol/L (3.5-5.1); Total Protein 8.2 gm/dl (6.0-8.3)
[2022-06-02] MEDS ORDERED: PROMETHAZINE 12.5 MG/50.5 ML BAG IV STA (16:09)
[2022-06-02] MEDS ORDERED: GLUCOSE 10 TAB/TUBE PO PRN (16:20)
[2022-06-02] MEDS ORDERED: CARBOHYDRATES FOR HYPOGLYCEMIA PO PRN (16:20)
[2022-06-02] MEDS ORDERED: GLUCAGON FOR INJ 1 MG VIAL SQ PRN (16:20)
[2022-06-02] MEDS ORDERED: DEXTROSE 50% 50 ML SYRINGE IV PRN (16:20)
[2022-06-02] MEDS ORDERED: GLUCOSE 40% GEL 15 GM TUBE PO PRN (16:20)
--- NOTE | 2022-06-02 16:25 | History & Physical Report ---
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 - No basal insulin for the past 2 days due to being in quarantine for COVID, not wanting to disturb family, etc but did take 20 units Lantus prior to presentation to ED. - Suspect leukocytosis 2/2 dehydration/vomiting, no evidence to support acute infection,COVID + but CXR does not show pnuemonia. - Presenting with glucose 164 AG 17, bicarb 20. - vBG: ph 7.23 / CO2 47 /O2 26 / bicarb 20 - K 4.6, Mg 2.4 - Admit to PCU with insulin drip, per protocol. - Check BSG every hour. - Goal BSG range 191260. - Pharmacy consulted to assist with transition to subcu insulin - BMP, VBG's, phosphorus, mag levels every 4 hours and daily. - NPO. (2) CELESTINO (acute kidney injury): Plan: - Cr 1.30, baseline < 1.0, likely due to dehydration from COVID/DKA. - Fluids as above for DKA, hold lisinopril today (did not take AM dose), if hypertension becomes an issue, will add on something prn. - BMP q4h/AM. (3) COVID-19: Plan: - Tested positive 05/30 after some chills, body aches, etc. Positive again in ED. - Doing well on RA, from COVID standpoint he is not really symptomatic other than some fatigue and weakness, likely also being exacerbated by DKA/dehydration/GI loss with vomiting. - Fluids for DKA, CELESTINO as above. - Isolation precautions. -T ylenol for pain/fever. 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 - DKA management as above. (5) Dyslipidemia: Plan: - Continue statin. (6) Hypertension: Plan: - Hold lisinopril for the day with CELESTINO, likely resume tomorrow. (7) Hypothyroidism: Plan: - Continue levothyroxine. Plan - Admit to PCU on insulin drip. - SCDs for VTE PPx. - Full code. - Isolation precautions. History of Present Illness Chief Complaint: nausea and vomiting x 2 days Primary Care Provider: Zaynab Gomez MD Kannan Lopez is a 31year old male with a past medical history of DM1, hyerlipidemia, hypertension, hypothyroidism, and recent COVID diagnosis Wednesday 05/31 who is presenting today from home with nausea and vomiting. Patient tested positive for COVID-19 on 05/31 after having some chills and body aches. Since then he is quarantined in his room and has not taken any of his long-acting insulin due to being in quarantine not wanting to bother family, as well as decreased oral intake. He developed nausea Friday and developed continuous vomiting about every 2 hours starting Friday night. He took an at home urine test which revealed a very high level of ketones, he called his communications program manager who recommended he present to the ED for further evaluation. On presentation, his vital signs are within normal limits and stable. Labs notable for sugar of 164, AG 17, VBH pH 7.23. Mildly elevated white count to 11.5 with left shift, BUN 35 creatinine 1.30, slightly up from baseline. No electrolyte abnormalities. Urine protein, glucose, ketones, and hyaline, granular casts. He is COVID-positive here. CXR unremarkable. Allergies Allergy/AdvReac Type Severity Reaction Status Date / Time No Known Allergies Allergy Verified 06/02/22 16:27 Home Medications Medication Instructions Recorded Confirmed Type ergocalciferol (vitamin D2) 1,250 50,000 unit PO 3XWK #12 caps 01/06/21 06/02/22 Rx mcg (50,000 unit) capsule blood sugar diagnostic (FreeStyle 04/30/21 04/30/22 History Lite Strips) pen needle, diabetic 32 gauge x #100 ea 05/14/21 04/30/22 Rx 5/32" (BD Ultra-Fine Kayla Pen Needle) empagliflozin 25 mg tablet 25 mg PO DAILY #30 tabs 10/30/21 06/02/22 Rx (Jardiance) insulin aspart U-100 100 unit/mL 0 sliding scale dose subcut TIDM 01/01/22 06/02/22 History (3 mL) subcutaneous pen (Novolog FlexPen U-100 Insulin aspart) insulin glargine 100 unit/mL (3 50 unit (0.5 mL) subcut QAM #15 mL 01/31/22 06/02/22 Rx mL) subcutaneous pen (Lantus Solostar U-100 Insulin) lisinopril 40 mg tablet 40 mg PO DAILY #30 tabs 02/07/22 06/02/22 Rx FreeStyle Halie 2 Sensor (flash #2 ea 03/07/22 04/30/22 Rx glucose sensor) flash glucose sensor (FreeStyle 04/24/22 04/30/22 History Halie 2 Sensor kit) atorvastatin 10 mg tablet 10 mg PO DAILY #30 tabs 05/09/22 06/02/22 Rx levothyroxine 175 mcg tablet 175 mcg PO DAILY #30 tabs 05/09/22 06/02/22 Rx Past Med/Surg History Medical History Albuminuria Diabetes type 1, uncontrolled Diabetic nephropathy associated with type 1 diabetes mellitus Diabetic peripheral neuropathy associated with type 1 diabetes mellitus DM type 1 (diabetes mellitus, type 1) Elias's thyroiditis History of COVID-19 04-04-20 TESTED + ([facility]) "TESTED FOR WORK PROTOCOL" HTN (hypertension) Hypothyroidism Leg wound, left Proliferative diabetic retinopathy associated with type 1 diabetes mellitus Surgical History History of vitrectomy LEFT History of wisdom tooth extraction Nausea and vomiting after administration of anesthetic agent Family History Grandfather Diabetes Aunt Diabetes Other No family history of adverse response to anesthesia Denies family history of Ovarian cancer Prostate cancer Myocardial infarction Breast cancer Lung cancer Colorectal cancer Stroke Social History Smoking Status: Never smoker Second Hand Exposure: No; Hx Alcohol Use: Yes Alcohol type: hard liquor Hx Substance Use: No Preferred Language: Turkish Communication Ability: Effective Visual Impairment: Limited Hearing Ability: Normal Obstetrics And Gynecology Professor Required: No Beliefs That Will Affect Care: None marital status: Current Living Situation: Family current occupational status: employed 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 Safe at Home: Yes Childhood Exposure to Second-Hand Smoke: No Assistive Devices: Glasses Review of Systems Review of Systems: Constitutional: Chills, body aches, fatigue, weakness x2 days; no anorexia, night sweats Eyes: No diplopia, no worsening or blurred vision ENT: normal hearing, no trouble swallowing Respiratory: No cough, sputum, dyspnea at rest or on exertion Cardiovascular: No chest pain, tightness or palpitations Abdomen: Nausea and vomiting x1 day; no abdominal pain, hematemesis, melena, hematochezia, diarrhea or constipation : Denies dysuria, hematuria, increased urgency/frequency, urinary retention Musculoskeletal: No joint pain, calf pain, swelling Neurologic: No weakness, numbness/tingling, or balance problems Psychiatric: No anxiety or depression Skin: No rash or itch Physical Exam Physical Exam: General: awake, alert, no apparent distress Head: Normocephalic, atraumatic ENT: PERRL, EOMI, no pharyngeal exudate, mucous membranes moist Chest: Clear to auscultation, on room air, no adventitious breath sounds Cardiac: Regular rate and rhythm, no murmur, no JVD, normal peripheral pulses, good capillary refill Abdominal: NABS x 4 quadrants, soft, nontender to palpation, no rebound, guarding or tenderness Extremities: Normal inspection, no peripheral edema or erythema, calfs nontender to palpation Psych: Normal mood and affect Neuro: AAO x 3, strength intact bilaterally and rated 5/5, no motor deficits, speech is clear, no peripheral sensory deficits Skin: no rash or erythema Results & Data Results & Data ([facility]) Vital Signs (Past 12 Hours) Vital Signs Temp Pulse Resp BP BP Pulse Ox O2 Del Method 06/02/22 14:41 18 121/78 99 Room Air 06/02/22 14:41 99 Room Air 06/02/22 13:44 36.4 C L 89 18 140/89 98 Room Air Laboratory Results Abnormal lab results 06/02/22 06/02/22 06/02/22 Range/Units 14:22 14:34 14:34 WBC (4.8-10.8) K/ul Neut # (Auto) (1.4-6.5) K/uL [place] # (Auto) (0.24-0.82) K/uL Immature Gran # (Auto) (0.00-0.02) K/uL VBG pH 7.23 L (7.36-7.41) Carbon Dioxide 20 L (21-32) mmol/L Anion Gap 17 H (3-11) BUN 35 H (6-23) mg/dl BUN/Creatinine Ratio 26.9 H (10-20) Glucose 164 H (70-99(Fasting)) mg/dl POC Glucose 174 H (70-99) mg/dl Alkaline Phosphatase 135 H (34-104) U/L Urine Protein (Negative) Urine Glucose (UA) (Negative) Urine Ketones (Negative) Urine Blood (Negative) U Hyaline Cast (Auto) (0-5) /lpf U Epithel Cells (Auto) (0-5) /lpf Granular Casts (0) /lpf 06/02/22 06/02/22 Range/Units 14:34 14:40 WBC 11.52 H (4.8-10.8) K/ul Neut # (Auto) 8.39 H (1.4-6.5) K/uL [place] # (Auto) 1.39 H (0.24-0.82) K/uL Immature Gran # (Auto) 0.07 H (0.00-0.02) K/uL VBG pH (7.36-7.41) Carbon Dioxide (21-32) mmol/L Anion Gap (3-11) BUN (6-23) mg/dl BUN/Creatinine Ratio (10-20) Glucose (70-99(Fasting)) mg/dl POC Glucose (70-99) mg/dl Alkaline Phosphatase (34-104) U/L Urine Protein 3+ H (Negative) Urine Glucose (UA) 3+ H (Negative) Urine Ketones 4+ H (Negative) Urine Blood Trace H (Negative) U Hyaline Cast (Auto) 10-30 H (0-5) /lpf U Epithel Cells (Auto) 20-30 H (0-5) /lpf Granular Casts 1-5 H (0) /lpf Diagnostic Findings Chest X-Ray 06/02/22 14:01 XR chest 1V portable HISTORY: 31 years-old Male covid, sob acute shortness of breath COMPARISON: Chest radiograph 07/08/2019 TECHNIQUE: AP view of the chest FINDINGS: Cardiomediastinal and hilar silhouettes are within normal limits. No pneumothorax, pleural effusion, focal airspace consolidation or overt pulmonary edema. Bones of the chest appear grossly intact. IMPRESSION: No acute process. ACT 112: Negative or not required by law. The above report was generated using voice recognition software. It may contain grammatical, syntax or spelling errors. Electronically signed by: Ney Velasquez M.D. 06/02/2022 2:44 PM Code Status & VTE Plan Code Status Full Code. Supervising Physician Co-Signing Physician Notes Patient seen and examined, chart reviewed, case discussed with Jocelin Deluca and I agree with the assessment and plan as above except as otherwise noted Labs and images reviewed Kannan is a 31-year-old male with a past medical history of type 1 diabetes who presents COVID-positive who has not taken his basal insulin due to being in quarantine. He has had nausea/vomiting for 2 days. On arrival to the ER blood sugar is less than 200, but is with gap of 17, ketonuria, and pH of 7.3 suggestive of mild ketoacidosis. While his blood sugar is less than 200, he has a anion gap with ketosis and metabolic acidosis of 7.23. We will treat with insulin until gap closes and pH normalizes, then transition back to normal insulin requirements. From a COVID perspective he is doing well, lungs are clear, and he is saturating well on room air. Steroids and remdesivir not indicated at this time. At bedside patient reports he is tired, but has stopped vomiting and is less nauseous. Does not open his eyes through exam and reports he feels "okay "and does not need anything. Heart rate is regular, normotensive in room. Agree with insulin, fluid protocol as above, VBG/BMP every 4 hours and addition of potassium to fluids per protocol, management as above PG Care Time/CCT Total # of Minutes Spent Total Time Spent with Patient: Total time spent is greater than 50% in coordination of care (as documented) at patient's floor/unit and/or counseling patient: Coding Level of Care Code 08481 INT INP/OBS CARE 2/MIN Diagnoses DKA (diabetic ketoacidosis) E11.10 CELESTINO (acute kidney injury) N17.9 COVID-19 U07.1 Diabetes type 1, uncontrolled E10.65 Dyslipidemia E78.5 Hypertension I10 Hypothyroidism E03.9
[2022-06-02] MEDS ORDERED: INSULIN REGULAR 250 UNITS in SODIUM CHLORIDE 0.9% 247.5 ML IV SCH (16:30)
[2022-06-02] MEDS: D5NSS + 20MEQ KCL 20 MEQ/1,000 ML BAG IV SCH (17:04)
[2022-06-02] MEDS: INSULIN ASPART PER UNIT SC SCH ×2 (18:18→21:49)
[2022-06-02] MEDS ORDERED: ONDANSETRON INJ 2 MG/ML 2 ML VIAL IV PRN ×2 (19:36→20:56)
[2022-06-02] MEDS ORDERED: POLYETHYLENE (MIRALAX) 17 GM PACK PO PRN (20:56)
[2022-06-02] MEDS ORDERED: PHARMACY GLYCEMIC MGMT CONSULT PRN (20:56)
[2022-06-02] MEDS ORDERED: ACETAMINOPHEN 325 MG TAB PO PRN (20:56)
[2022-06-02 22:40] LABS: BUN Creatinine Ratio 30.2 (10-20); Calcium 8.5 mg/dl (8.5-10.1); Creatinine Clr Calc Pharmacy 139.5 ml/min; Est GFR (African American) 120.7 ml/min; Est GFR (Non-African American) 104.2 ml/min; Magnesium 2.1 mg/dl (1.7-2.4); Phosphorus 2.2 mg/dl (2.5-4.9); Potassium 4.2 mmol/L (3.5-5.1)
[2022-06-03] MEDS: D5NSS + 20MEQ KCL 20 MEQ/1,000 ML BAG IV SCH ×2 (01:07→09:12)
[2022-06-03 01:34] LABS: BUN Creatinine Ratio 27.6 (10-20); Calcium 8.6 mg/dl (8.5-10.1); Creatinine Clr Calc Pharmacy 136.7 ml/min; Est GFR (African American) 117.8 ml/min; Est GFR (Non-African American) 101.6 ml/min; Magnesium 2.2 mg/dl (1.7-2.4); Phosphorus 2.1 mg/dl (2.5-4.9); Potassium 4.2 mmol/L (3.5-5.1)
[2022-06-03] MEDS: LEVOTHYROXINE SODIUM 175 MCG TABLET PO SCH (05:30)
[2022-06-03 06:31] LABS: BUN Creatinine Ratio 26.4 (10-20); Calcium 8.3 mg/dl (8.5-10.1); Creatinine Clr Calc Pharmacy 147.2 ml/min; Est GFR (African American) 128.8 ml/min; Est GFR (Non-African American) 111.1 ml/min; Magnesium 2.1 mg/dl (1.7-2.4); Phosphorus 1.8 mg/dl (2.5-4.9); Potassium 4.1 mmol/L (3.5-5.1)
[2022-06-03] MEDS ORDERED: LANTUS PER UNIT CHARGE SQ ONE (07:45)
[2022-06-03] MEDS: INSULIN ASPART PER UNIT SC SCH ×6 (08:19→23:51)
[2022-06-03] MEDS: ATORVASTATIN 10 MG TAB PO SCH (09:12)
--- NOTE | 2022-06-03 09:20 | Pharmacy Report ---
Pharmacy Glycemic Short Note 2 - Date of Service June 03, 2022 - Glycemic Short BSG Results (Last 24 hours): 06/02/22 06/02/22 06/02/22 14:22 14:34 17:08 Glucose 164 H POC Glucose 174 H 134 H 06/02/22 06/02/22 06/02/22 18:15 19:14 20:26 Glucose POC Glucose 164 H 140 H 144 H 06/02/22 06/02/22 06/02/22 21:02 22:00 22:07 Glucose 155 H POC Glucose 138 H 142 H 06/02/22 06/03/22 06/03/22 23:09 00:10 00:53 Glucose 162 H POC Glucose 143 H 147 H 06/03/22 06/03/22 06/03/22 02:30 04:23 05:29 Glucose POC Glucose 162 H 139 H 152 H 06/03/22 06/03/22 06/03/22 05:41 06:10 07:17 Glucose 158 H POC Glucose 142 H 154 H 06/03/22 08:14 Glucose POC Glucose 139 H OUTPATIENT ANTIDIABETIC REGIMEN: * Lantus 50 units SC qAM * Novolog TIDM * Target: 90-140 mg/dL * Correction factor: 15 unit/mg/dL * Carb ratio: 5 gm/unit HbA1c: 9.4% (04/30/22) ASSESSMENT: * TV is a 31 year old male with uncontrolled T1DM, who presented yesterday in DKA secondary to recent illness/absence of basal insulin x 2 days. Surprisingly, BSGs unremarkable at presentation (174 mg/dL) and have remained well controlled since that time. * Initial labs, anion gap 17, serum bicarbonate 20, pH 7.23, SCr: 1.3 mg/dL. * CELESTINO on presentation likely related to dehydration, resolved overnight with administration of IV fluids * Patient remains NPO, anticipating diet to be ordered later today * DKA now resolved, anion gap 8, serum bicarbonate 23, pH 7.34 this morning * Insulin infusion titrated down, currently infusing at 1.7 units/hr * Will give ~80% of reported home basal now and attempt insulin gtt transition to SC basal/bolus PLAN FOR INPATIENT GLYCEMIC CONTROL: * Insulin infusion * Transitioned to SC basal/bolus today ~lunchtime * Perhaps premature, but decided to d/c infusion early to prevent need for additional IV site, per discussion with hospitalist * Basal insulin * Lantus 40 units SQ x 1 * Lantus 0-10 units SC HS x 1 (see EHR for details) * Consider full home dose of 50 units tomorrow morning * Bolus insulin * NovoLog per scale ACHS or Q6hrs while NPO * Goal Range: Low 110 mg/dL - High 140 mg/dL * Correction Factor: 15 mg/dL/unit * Nutritional / Prandial insulin per carb ratio of 1 unit per 5 grams CHO consumed
[2022-06-03 10:25] LABS: BUN Creatinine Ratio 21.2 (10-20); Calcium 8.2 mg/dl (8.5-10.1); Creatinine Clr Calc Pharmacy 128.8 ml/min; Est GFR (African American) 109.6 ml/min; Est GFR (Non-African American) 94.6 ml/min; Magnesium 2.1 mg/dl (1.7-2.4); Phosphorus 1.8 mg/dl (2.5-4.9); Potassium 4.2 mmol/L (3.5-5.1)
[2022-06-03] MEDS ORDERED: POTASSIUM PHOS 3 MMOL/1 ML INFUSION IV STA (10:43)
[2022-06-03] MEDS ORDERED: POTASSIUM PHOSPHATE 15 MMOL in SODIUM CHLORIDE 0.9% 250 ML IV ONE (11:00)
[2022-06-03 13:48] LABS: BUN Creatinine Ratio 17.1 (10-20); Creatinine Clr Calc Pharmacy 120.7 ml/min; Est GFR (African American) 101.3 ml/min; Est GFR (Non-African American) 87.4 ml/min; Phosphorus 2.3 mg/dl (2.5-4.9); Potassium 4.4 mmol/L (3.5-5.1)
[2022-06-03 17:42] LABS: Calcium 8.2 mg/dl (8.5-10.1); Potassium 3.9 mmol/L (3.5-5.1)
[2022-06-03 17:47] LABS: BUN Creatinine Ratio 17.3 (10-20); Creatinine Clr Calc Pharmacy 128.8 ml/min; Est GFR (African American) 109.6 ml/min; Est GFR (Non-African American) 94.6 ml/min; Phosphorus 1.9 mg/dl (2.5-4.9)
--- NOTE | 2022-06-03 19:56 | Hospitalist Progress Note ---
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 - No basal insulin for the past 2 days prior to admission due to being in quarantine for COVID, not wanting to disturb family, etc but did take 20 units Lantus prior to presentation to ED. - Suspect leukocytosis 2/2 dehydration/vomiting, no evidence to support acute infection,COVID + but CXR does not show pnuemonia. - Presenting with glucose 164 AG 17, bicarb 20. - vBG: ph 7.23 / CO2 47 /O2 26 / bicarb 20 Acidosis resolved, anion gap is closed Transition off insulin drip to basal and bolus insulin today He is no longer having any nausea and will advance diet to diabetic diet today Replace phosphorus Can discharge later today or tomorrow if continues to improve DC IV fluids Follow CBC, BMP, magnesium and phosphorus in the morning (2) CELESTINO (acute kidney injury): Plan: - Cr 1.30, baseline < 1.0, likely due to dehydration from COVID/DKA. - Fluids given as above for DKA, hold lisinopril -Improved back to normal Follow BMP (3) COVID-19: Plan: - Tested positive 05/30 after some chills, body aches, etc. Positive again in ED on admission. - Doing well on RA, from COVID standpoint he is not really symptomatic other than some fatigue and weakness, likely also being exacerbated by D KA/dehydration/GI loss with vomiting. - Isolation precautions. -Tylenol for pain/fever. No indication for dexamethasone and likely beyond the window of benefit for starting Remdesivir at this point (4) Diabetes type 1, uncontrolled: Plan: DKA management as above Hemoglobin A1c uncontrolled at 9.4% in 04/2022 Needs improved control as an outpatient (5) Dyslipidemia: Plan: - Continue statin. (6) Hypertension: Plan: - Hold lisinopril for the day with CELESTINO, likely resume tomorrow. (7) Hypothyroidism: Plan: - Continue levothyroxine. TSH normal in 08/2021 Plan DVT prophylaxis-add on Lovenox Disposition-continued stay but likely discharged home tomorrow Admission and Anticipated Discharge Date Admission Date: June 02, 2022 Subjective Pt Feeling better, no nausea or headache, no lightheadedness,. No chest pains or shortness of breath. He is tolerating solid foods for lunch. No fevers or chills anymore. No sore throat. Telemetry with normal sinus rhythm with rates in the 70s Review of Systems Review of Systems: All systems reviewed & are unremarkable except as noted in HPI & below Physical Exam Constitutional: WD/WN, vitals as above Eyes: + anicteric sclerae Neck: trachea midline, no thyromegaly Respiratory: normal respiratory effort, lungs clear to auscultation Cardiovascular: RRR, no murmur, no edema Chest (Breasts): Chest: normal inspection of chest Gastrointestinal (Abdomen): normal bowel sounds, soft, nontender, no hepatosplenomegaly Musculoskeletal: Extremities: extremities normal to inspection; no cyanosis and no clubbing Skin: no rashes, warm and dry Neurologic: moves all extremities and awake; no focal motor deficits Psychiatric: A+Ox3, euthymic affect Lymphatic: no lymphedema Results & Data Results & Data ([facility]) Vital Signs (Past 12 Hours) Vital Signs Temp Pulse Pulse Resp BP Pulse Ox O2 Del Method 06/03/22 18:15 Nasal Cannula 06/03/22 15:31 36.7 C 74 18 121/74 94 Room Air 06/03/22 14:18 75 06/03/22 11:40 36.8 C 75 16 136/81 94 Room Air O2 Flow Rate 06/03/22 18:15 2 06/03/22 15:31 06/03/22 14:18 06/03/22 11:40 Laboratory Results Labs reviewed PG Care Time/CCT Total # of Minutes Spent Total Time Spent with Patient: Total time spent is greater than 50% in coordination of care (as documented) at patient's floor/unit and/or counseling patient: Coding Level of Care Code 04257 SUB INP/OBS CARE 3/50MIN Diagnoses DKA (diabetic ketoacidosis) E10.10 Diabetes mellitus complication detail: without coma Diabetes mellitus type: type 1 CELESTINO (acute kidney injury) N17.9 COVID-19 U07.1 Diabetes type 1, uncontrolled E10.65 Dyslipidemia E78.5 Hypertension I10 Hypothyroidism E03.9 (1) DKA (diabetic ketoacidosis) Diabetes mellitus complication detail: without coma Diabetes mellitus type: type 1 Qualified Code(s): E10.10 - Type 1 diabetes mellitus with ketoacidosis without coma
[2022-06-03] MEDS ORDERED: LANTUS PER UNIT CHARGE SQ SCH (21:00)
[2022-06-04] MEDS: INSULIN ASPART PER UNIT SC SCH ×3 (04:03→12:44)
[2022-06-04] MEDS: LEVOTHYROXINE SODIUM 175 MCG TABLET PO SCH (05:38)
[2022-06-04] MEDS: ATORVASTATIN 10 MG TAB PO SCH (08:36)
[2022-06-04] MEDS ORDERED: LANTUS PER UNIT CHARGE SQ SCH (09:00)
[2022-06-04] MEDS ORDERED: ENOXAPARIN INJ 40 MG/0.4 ML SYR SQ SCH (09:30)
[2022-06-04 09:43] LABS: Basophils # (auto) 0.01 K/uL (0-0.2); Basophils % (auto) 0.2 %; Eosinophils # (auto) 0.04 K/uL (0-0.50); Eosinophils % (auto) 0.7 %; Hemoglobin 13.2 g/dl (14.0-18.0); Immature Granulocytes # (auto) 0.02 K/uL (0.00-0.02); Immature Granulocytes % (auto) 0.3 %; Lymphocytes % (auto) 36.7 %; Mean Corpuscular Hemoglobin 28.9 pg (25.0-34.0); Mean Corpuscular Hgb Conc 34.7 g/dL (32.0-36.0); Mean Corpuscular Volume 83.2 fL (80.0-100.0); Monocytes # (auto) 0.52 K/uL (0.24-0.82); Monocytes % (auto) 8.7 %; Neutrophils # (auto) 3.21 K/uL (1.4-6.5); Neutrophils % (auto) 53.4 %; Platelet Count 204 K/uL (130-400); RDW Coefficient of Variation 13.4 % (11.5-14.5); RDW Standard Deviation 40.1 fL (36.4-46.3); Red Blood Count 4.57 M/uL (4.63-6.08)
[2022-06-04 09:57] LABS: BUN Creatinine Ratio 15.7 (10-20); Calcium 8.4 mg/dl (8.5-10.1); Est GFR (African American) 134.9 ml/min; Est GFR (Non-African American) 116.4 ml/min; Magnesium 1.8 mg/dl (1.7-2.4); Phosphorus 2.4 mg/dl (2.5-4.9); Potassium 4.2 mmol/L (3.5-5.1)
--- NOTE | 2022-06-04 13:37 | Discharge Summary ---
Date of Service June 04, 2022 Admission HPI Per Admitting Provider Kannan Lopez is a 31year old male with a past medical history of DM1, hyerlipidemia, hypertension, hypothyroidism, and recent COVID diagnosis Wednesday 05/31 who is presenting today from home with nausea and vomiting. Patient tested positive for COVID-19 on 05/31 after having some chills and body aches. Since then he is quarantined in his room and has not taken any of his long-acting insulin due to being in quarantine not wanting to bother family, as well as decreased oral intake. He developed nausea Friday and developed continuous vomiting about every 2 hours starting Friday night. He took an at home urine test which revealed a very high level of ketones, he called his freelance photographer who recommended he present to the ED for further evaluation. On presentation, his vital signs are within normal limits and stable. Labs notable for sugar of 164, AG 17, VBH pH 7.23. Mildly elevated white count to 11.5 with left shift, BUN 35 creatinine 1.30, slightly up from baseline. No electrolyte abnormalities. Urine protein, glucose, ketones, and hyaline, granular casts. He is COVID-positive here. CXR unremarkable. Principal Diagnosis DKA, COVID-19 Discharge Exam Constitutional WD/WN, vitals as above Eyes + anicteric sclerae Neck trachea midline, no thyromegaly Respiratory normal respiratory effort, lungs clear to auscultation Cardiovascular RRR, no murmur, no edema Chest (Breasts) Chest: normal inspection of chest Gastrointestinal (Abdomen) normal bowel sounds, soft, nontender, no hepatosplenomegaly Musculoskeletal Extremities: extremities normal to inspection; no cyanosis and no clubbing Skin no rashes, warm and dry Neurologic moves all extremities and awake; no focal motor deficits Psychiatric A+Ox3, euthymic affect Lymphatic no lymphedema Discharge Data Allergies Allergy/AdvReac Type Severity Reaction Status Date / Time No Known Allergies Allergy Verified 06/02/22 16:27 Consultations 06/02/22 16:22 ED Decision to Admit Stat Hospital Course (1) DKA (diabetic ketoacidosis): - 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 - No basal insulin for the past 2 days prior to admission due to being in quarantine for COVID, not wanting to disturb family, etc but did take 20 units Lantus prior to presentation to ED. - Suspect leukocytosis 2/2 dehydration/vomiting, no evidence to support acute infection,COVID + but CXR does not show pnuemonia. - Presenting with glucose 164 AG 17, bicarb 20. - vBG: ph 7.23 / CO2 47 /O2 26 / bicarb 20 Acidosis resolved, anion gap is closed Transitioned off insulin drip to basal and bolus insulin and blood glucose remains controlled, no recurrence of DKA He is no longer having any nausea and is tolerating diabetic diet without N/V Stable for dc to home (2) CELESTINO (acute kidney injury): - Cr 1.30, baseline < 1.0, likely due to dehydration from COVID/DKA. - Fluids given as above for DKA, held lisinopril and Jardiance -Improved back to normal restart home lisinopril and Jardiance on discharge (3) COVID-19: - Tested positive 05/30 after some chills, body aches, etc. Positive again in ED on admission. - Doing well on RA, from COVID standpoint he is not really symptomatic other than some fatigue and weakness, likely also being exacerbated by DKA/dehydration/GI loss with vomiting. - Isolation precautions. -Tylenol for pain/fever. No indication for dexamethasone and likely beyond the window of benefit for starting Remdesivir at this point (4) Diabetes type 1, uncontrolled: DKA management as above Hemoglobin A1c uncontrolled at 9.4% in 04/2022 Needs improved control as an outpatient follow up with Endocrinology (5) Dyslipidemia: - Continue statin. (6) Hypertension: -retsart lisinopril on discharge (7) Hypothyroidism: - Continue levothyroxine. TSH normal in 08/2021 Plan DVT prophylaxis- Lovenox Disposition-dc to home today, doing well Total Time Total Time Spent Total Time Spent (In Minutes): 35 min Discharge Plan Discharge Items Patient Disposition: Home - Self-Care Reason For Visit: COVID POSITIVE, VOMITING, HEADACHE Discharge Diagnosis: DKA, COVID-19 Condition on Discharge: Good Activity: Resume your previous activity Non-emergency contact: Primary Care Provider Call non-emergency contact if: you have any medication questions and your symptoms worsen Follow-up/Referrals: Zaynab Gomez MD [Primary Care Provider] - (Follow up within 1 week.) Diet: Carb Count or DM1 and Heart Healthy Addtl Attending Provider Instructions: You were admitted with DKA secondary to not using your insulin as directed. This is now resolved. Please continue to take your insulin as directed by your Improvement Auditor. You did not require any treatment for your COVID-19. Pending Studies at Discharge: No Stand-Alone Forms: My [facility] [employer], Smoking Cessation Medications and DC Order Prescriptions: Continued ergocalciferol (vitamin D2) 1,250 mcg (50,000 unit) capsule 50,000 unit PO 3XWK Qty: 12 3RF Rx Instructions: 87799 units PO three times weekly; TAKE THIS MEDICATION EVERY FRIDAY,FRIDAY AND FRIDAY (DME) pen needle, diabetic [BD Ultra-Fine Kayla Pen Needle] 32 gauge x 5/32" needle See Rx Instructions miscellaneous .MEDSUPPLY Qty: 100 5RF Rx Instructions: Change 4x a day insulin glargine [Lantus Solostar U-100 Insulin] 100 unit/mL (3 mL) insulin pen 50 unit subcut QAM Qty: 15 5RF lisinopril 40 mg tablet 40 mg PO DAILY Qty: 30 2RF (DME) FreeStyle Halie 2 Sensor Kit See Rx Instructions .Route Label Comments: Entered Halie sensor as a duplicate due to Halie Sensor having a prescription on file and needing to log lot # and expiration date of sample given to pt. Rx Instructions: Halie 2 sensor sample was given to pt on 04/24/2022 Lot # [id number] Expiration date 09-08-2022 Jardiance 25 mg tablet 25 mg PO DAILY Qty: 30 5RF insulin aspart U-100 [Novolog FlexPen U-100 Insulin] 100 unit/mL (3 mL) ins ulin pen 0 sliding scale dose subcut TIDM Rx Instructions: Up to 60 units/day as directed with meals and to correct high blood sugars (DME) FreeStyle Lite Strips Strip See Rx Instructions .ROUTE .MEDSUPPLY Rx Instructions: testing 1 X daily (DME) FreeStyle Halie 2 Sensor Kit See Rx Instructions .ROUTE .MEDSUPPLY Qty: 2 11RF Rx Instructions: Change every 14 days levothyroxine 175 mcg tablet 175 mcg PO DAILY Qty: 30 6RF atorvastatin 10 mg tablet 10 mg PO DAILY Qty: 30 5RF Discharge Orders: Discharge Order (Routine); Ordered 06/04/22 Ordered By: Karin Velarde/Other Patient Handouts: Diabetes: Sick-Day Plan Admission Data Admit Date/Time: 06/02/22 16:26 Attending Provider: Karin Hauser Admit Provider: Elliot Franz Primary Care Provider: Zaynab Gomez V. Other Providers: Elliot Franz Coding Level of Care Code HOSP INP/OBS DISCH >30 MIN Diagnoses DKA (diabetic ketoacidosis) E10.10 Diabetes mellitus complication detail: without coma Diabetes mellitus type: type 1 CELESTINO (acute kidney injury) N17.9 COVID-19 U07.1 Diabetes type 1, uncontrolled E10.65 Dyslipidemia E78.5 Hypertension I10 Hypothyroidism E03.9
== END 2022-06-04 15:14 | disposition home or self-care (01) | DRG 637 ==
LOC: ED 13:41 → EDINP 16:26 → SUATTDRO 16:26 → INTOOBSV 16:26 → 2S 20:36

== ENCOUNTER 2024-02-20 12:31 | Inpatient (IN) ==
[2024-02-20 13:26] LABS: Base Excess VBG 4.8 mEq/L; HCO3 VBG 31 mmol/L; Oxygen Saturation VBG < 60.0 %; PCO2 VBG 53 mmHg (38-50); PO2 VBG 29 mmHg; pH VBG 7.38 (7.36-7.41)
[2024-02-20] MEDS: ONDANSETRON INJ 2 MG/ML 2 ML VIAL IV STA (13:28)
[2024-02-20 13:30] LABS: Basophils # (auto) 0.02 K/uL (0.00-0.20); Basophils % (auto) 0.2 %; Eosinophils # (auto) 0.06 K/uL (0.00-0.50); Eosinophils % (auto) 0.5 %; Hematocrit (blood only) 37.6 % (42.0-52.0); Hemoglobin 13.6 g/dl (14.0-18.0); Immature Granulocytes # (auto) 0.04 K/uL (0.01-0.20); Immature Granulocytes % (auto) 0.4 %; Lymphocytes # (auto) 1.26 K/uL (1.20-3.40); Lymphocytes % (auto) 11.3 %; Mean Corpuscular Hemoglobin 29.9 pg (25.0-34.0); Mean Corpuscular Hgb Conc 36.2 g/dL (32.0-36.0); Mean Corpuscular Volume 82.6 fL (80.0-100.0); Mean Platelet Volume 10.3 fL (9.4-12.4); Monocytes # (auto) 0.84 K/uL (0.11-0.59); Monocytes % (auto) 7.5 %; Neutrophils # (auto) 8.97 K/uL (1.40-6.50); Neutrophils % (auto) 80.1 %; Platelet Count 302 K/uL (130-400); RDW Coefficient of Variation 12.1 % (11.5-14.5); RDW Standard Deviation 36.9 fL (36.4-46.3); Red Blood Count 4.55 M/uL (4.70-6.10); White Blood Count 11.19 K/ul (4.8-10.8)
--- NOTE | 2024-02-20 13:31 | Emergency Department Note ---
History of Present Illness General Chief complaint: Vomiting Stated complaint: VOMITING, DIABETIC Time Seen by Provider: 02/20/24 12:40 History of Present Illness Provider complaint: Nausea vomiting cough Onset (ago): week(s) 1 Associated symptoms: + cough and + nausea/vomiting 33-year-old insulin-dependent diabetic male presents emergency department for nausea vomiting and cough. Patient states he was diagnosed with pneumonia yesterday. He states he was discharged from the ER yesterday but has been unable to keep any fluids down. He states he has been having increasing cough and difficulty breathing. No chest pain. No abdominal pain. No hematemesis coffee-ground emesis bilious vomiting. No melena hematochezia. No hematuria or dysuria. Home Medications Medication Instructions Recorded Confirmed Type pen needle, diabetic 32 gauge x #100 ea 05/14/21 02/19/24 Rx /32" (BD Ultra-Fine Kayla Pen Needle) ergocalciferol (vitamin D2) 1,250 50,000 unit PO 3XWK #12 caps 05/15/23 02/19/24 Rx mcg (50,000 unit) capsule atorvastatin 20 mg tablet 20 mg PO QPM #30 tabs 07/16/23 02/19/24 Rx levothyroxine 175 mcg tablet 175 mcg PO DAILY #30 tabs 07/16/23 02/19/24 Rx Dexcom G7 Sensor (blood-glucose #3 ea 08/06/23 02/19/24 Rx sensor) blood sugar diagnostic (FreeStyle #100 ea 08/11/23 02/19/24 Rx Lite Strips) insulin glargine 100 unit/mL (3 50 unit (0.5 mL) subcut QAM #15 mL 10/02/23 02/19/24 Rx mL) subcutaneous pen (Lantus Solostar U-100 Insulin) empagliflozin 25 mg tablet 25 mg PO DAILY #30 tabs 10/13/23 02/19/24 Rx (Jardiance) insulin pump cart,automated,BT #15 ea 11/06/23 02/19/24 Rx (Omnipod 5 G6 Pods (Gen 5) subcutaneous cartridge) insulin pump cartridge,automated #1 ea 11/06/23 02/19/24 Rx dose,BT with controller subcutaneous (Omnipod 5 G6 Intro Kit (Gen 5) subcutaneous cartridge with controller) lisinopril 40 mg tablet 40 mg PO DAILY #30 tabs 12/25/23 02/19/24 Rx insulin aspart U-100 100 unit/mL See Rx Instructions .Route 01/19/24 02/19/24 Rx (3 mL) subcutaneous pen (Novolog .COMPLEX #30 mL FlexPen U-100 Insulin aspart) acetone (urine) test (Ketone Urine #100 ea 02/05/24 02/19/24 Rx Test strips) insulin aspart U-100 100 unit/mL 70 unit (0.7 mL) continuous 02/05/24 02/19/24 Rx subcutaneous solution (Novolog subcutaneous infusion DAILY #30 mL U-100 Insulin aspart) amoxicillin 875 mg-potassium 1 tab PO BID 5 days #10 tabs 02/19/24 02/19/24 Rx clavulanate 125 mg tablet azithromycin 250 mg tablet See Rx Instructions PO .COMPLEX #6 02/19/24 02/19/24 Rx tabs Allergies Allergy/AdvReac Type Severity Reaction Status Date / Time No Known Allergies Allergy Verified 02/19/24 10:38 Past Med/Surg History Problem List (Updated 02/20/24 @ 14:10 by Nacho Mcdonald MD) Pneumonia (Acute) Hypoxia (Acute) Hyperglycemia (Acute) Pneumonia (Acute) Nausea & vomiting (Acute) Health care maintenance COVID-19 (Acute) Dyslipidemia Diabetes type 1, uncontrolled Uncontrolled type 1 diabetes mellitus with circulatory complication Proliferative diabetic retinopathy associated with type 1 diabetes mellitus Albuminuria Diabetic peripheral neuropathy associated with type 1 diabetes mellitus Diabetic nephropathy associated with type 1 diabetes mellitus Obesity (BMI 30.0-34.9) Erectile dysfunction Hypertension Hypothyroidism Medical History History of COVID-19 04-04-20 TESTED + (SYMPTOMS-[facility]ILLS) "TESTED FOR WORK PROTOCOL" DM type 1 (diabetes mellitus, type 1) HTN (hypertension) Leg wound, left Elias's thyroiditis Neurodermatitis Surgical History Nausea and vomiting after administration of anesthetic agent History of vitrectomy LEFT History of wisdom tooth extraction Family History Grandfather Diabetes Aunt Diabetes Other No family history of adverse response to anesthesia Denies family history of Ovarian cancer Prostate cancer Myocardial infarction Breast cancer Lung cancer Colorectal cancer Stroke Social History Smoking Status: Never smoker Second Hand Exposure: No; Do You Dip or Chew Tobacco: No; Hx Alcohol Use: Yes Alcohol type: hard liquor Hx Substance Use: No Preferred Language: German Communication Ability: Effective Visual Impairment: Limited Hearing Ability: Normal [employer] Ax Developer Required: No Beliefs That Will Affect Care: None marital status: Current Living Situation: Parent current occupational status: employed 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 - Head: Normocephalic and atraumatic. EYES: Conjunctivae and EOM are normal. Right eye exhibits no discharge. Left eye exhibits no discharge. No scleral icterus. NECK: Normal range of motion. Neck supple. No JVD present. CV: Normal rate, regular rhythm, normal heart sounds and intact distal pulses. There is no peripheral edema. Palpable radial pulses bue. PULM/CHEST: Rhonchi bilaterally. ABD: The abdomen is soft. There is no tenderness. NEURO: Motor and sensation grossly intact. SKIN: Skin is warm and dry. He is not diaphoretic. PSYCH: normal mood and affect. Behavior is normal. Judgment and thought content normal. Course Course 1240: The patient was evaluated in room C4. A complete history and physical exam was performed Cardiac monitoring: An order was placed for continuous cardiac monitoring. The monitor shows a rate of 80 with sinus rhythm interpreted by me Patient was found to be hypoxic on room air at 87%. Supplemental oxygen was applied via nasal cannula which improved the patient's oxygen saturation. 1408: Vital signs stable on supplemental oxygen via nasal cannula. Labs show white blood cell count of 11.19 hemoglobin 13.6 coagulation studies within normal limits. Venous pH is 7.38 venous pCO2 53. High-sensitivity troponin 54.9. Procalcitonin 0.25. Patient will be treated with Rocephin and [facility]ithromycin [facility]. Administered Medications Discontinued Medications Ondansetron HCl (Ondansetron Inj 2 Mg/Ml 2 Ml Vial) 4 mg IV NOW STA Stop: 02/20/24 13:18 Last Admin: 02/20/24 13:28 Dose: 4 mg Documented By: ROSAMARIA Medical Decision Making Medical Records Attestation: I reviewed the patient's medical records. Extramedical records reviewed. Patient was seen in the emergency department yesterday. BioFire was negative. Chest x-ray showed left lower lobe infiltrate. Laboratory Data Attestation: I reviewed the patient's lab results. 02/20/24 13:07 02/20/24 13:07 Lab Results 02/20/24 02/20/24 Range/Units 13:07 13:14 WBC 11.19 H (4.8-10.8) K/ul RBC 4.55 L (4.70-6.10) M/uL Hgb 13.6 L (14.0-18.0) g/dl Hct 37.6 L (42.0-52.0) % MCV 82.6 (80.0-100.0) fL MCH 29.9 (25.0-34.0) pg MCHC 36.2 H (32.0-36.0) g/dL RDW Std Deviation 36.9 (36.4-46.3) fL RDW Coeff of Edie 12.1 (11.5-14.5) % Plt Count 302 (130-400) K/uL MPV 10.3 (9.4-12.4) fL Immature Gran % (Auto) 0.4 % Neut % (Auto) 80.1 % Lymph % (Auto) 11.3 % Dawes % (Auto) 7.5 % Eos % (Auto) 0.5 % Baso % (Auto) 0.2 % Neut # (Auto) 8.97 H (1.40-6.50) K/uL Lymph # (Auto) 1.26 (1.20-3.40) K/uL Dawes # (Auto) 0.84 H (0.11-0.59) K/uL Eos # (Auto) 0.06 (0.00-0.50) K/uL Baso # (Auto) 0.02 (0.00-0.20) K/uL Immature Gran # (Auto) 0.04 (0.01-0.20) K/uL PT 10.5 (9.0-12.0) Seconds INR 1.0 (0.9-1.1) APTT 31 (21-31) Seconds PTT Ratio 1.2 VBG pH 7.38 (7.36-7.41) VBG pCO2 53 H (38-50) mmHg VBG pO2 29 mmHg VBG HCO3 31 mmol/L VBG O2 Saturation < 60.0 % VBG Base Excess 4.8 mEq/L Sodium 137 (136-145) mmol/L Potassium 4.0 (3.5-5.1) mmol/L Chloride 95 L (98-107) mmol/L Carbon Dioxide 30 (21-32) mmol/L Anion Gap 12 H (3-11) BUN 13 (6-23) mg/dl Creatinine 0.99 (0.6-1.4) mg/dl Est Cr Clr Drug Dosing 134.5 ml/min eGFR 102.51 BUN/Creatinine Ratio 13.1 (10-20) Glucose 212 H (70-99(Fasting)) mg/dl Lactate 1.1 (0.4-2.0) mmol/L Calcium 9.2 (8.6-10.3) mg/dl Magnesium 2.1 (1.7-2.4) mg/dl Total Bilirubin 0.6 (0.2-1.0) mg/dl Direct Bilirubin 0.1 (0-0.2) mg/dl AST 18 (13-39) U/L ALT 14 (7-52) U/L Alkaline Phosphatase 98 (34-104) U/L Troponin I High Sens 54.9 H* (0-20) pg/ml Total Protein 7.7 (6.0-8.3) gm/dl Albumin 4.0 (3.4-5.0) gm/dl Procalcitonin 0.25 (0-0.5) ng/ml ECG Data Attestation: I personally reviewed and interpreted this ECG as follows: Rate (beats per minute): 78 Rhythm: + normal sinus ECG Intervals/blocks: + Normal QRS, + Normal OR and + Normal QT-c ECG ST segments: + Normal ST segments [facility] Narrative 1240: The patient was evaluated in room C4. A complete history and physical exam was performed Cardiac monitoring: An order was placed for continuous cardiac monitoring. The monitor shows a rate of 80 with sinus rhythm interpreted by me Patient was found to be hypoxic on room air at 87%. Supplemental oxygen was applied via nasal cannula which improved the patient's oxygen saturation. 1408: Vital signs stable on supplemental oxygen via nasal cannula. Labs show white blood cell count of 11.19 hemoglobin 13.6 coagulation studies within normal limits. Venous pH is 7.38 venous pCO2 53. High-sensitivity troponin 54.9. Procalcitonin 0.25. Patient will be treated with Rocephin and azithromycin and admitted to the [facility] hospitalist team. Impression & Plan Hypoxia, Pneumonia Discharge Plan Visit Data Chief Complaint: Vomiting Stated Complaint: VOMITING, DIABETIC ED Provider: Nacho Mcdonald Discharge Problem: Hypoxia, Pneumonia Patient Disposition: Admitted As Inpatient Forms Stand Alone Forms: My [facility] Prescriptions Prescriptions: No Action (DME) pen needle, diabetic [BD Ultra-Fine Kayla Pen Needle] 32 gauge x 5/32" needle See Rx Instructions miscellaneous .MEDSUPPLY Qty: 100 5RF Rx Instructions: Change 4x a day ergocalciferol (vitamin D2) 1,250 mcg (50,000 unit) capsule 50,000 unit PO 3XWK Qty: 12 3RF Rx Instructions: 10681 units PO three times weekly; TAKE THIS MEDICATION EVERY FRIDAY,FRIDAY AND FRIDAY atorvastatin 20 mg tablet 20 mg PO QPM Qty: 30 5RF levothyroxine 175 mcg tablet 175 mcg PO DAILY Qty: 30 6RF (DME) Dexcom G7 Sensor Device See Rx Instructions .Route Qty: 3 11RF Rx Instructions: Change sensor every 10 days insulin glargine [Lantus Solostar U-100 Insulin] 100 unit/mL (3 mL) insulin pen 50 unit subcut QAM Qty: 15 5RF Jardiance 25 mg tablet 25 mg PO DAILY Qty: 30 5RF lisinopril 40 mg tablet 40 mg PO DAILY Qty: 30 2RF Apidra SoloStar U-100 Insulin 100 unit/mL insulin pen 0RF insulin aspart U-100 [Novolog FlexPen U-100 Insulin] 100 unit/mL (3 mL) insulin pen See Rx Instructions .ROUTE .COMPLEX Qty: 30 5RF Rx Instructions: Up to 60 units/day as directed with meals and to correct high blood sugars insulin aspart U-100 [Novolog U-100 Insulin aspart] 100 unit/mL solution 70 unit continuous subcutaneous infusion DAILY Qty: 30 3RF Rx Instructions: for use in insulin pump; use up to 70 units daily (DME) Ketone Urine Test Strip See Rx Instructions .ROUTE .MEDSUPPLY Qty: 100 5RF Rx Instructions: check urine every 2 hours with hyperglycemia (DME) Omnipod 5 G6 Intro Kit (Gen 5) Cartridge See Rx Instructions .ROUTE .MEDSUPPLY Qty: 1 0RF Rx Instructions: Change pod every 2 days (DME) Omnipod 5 G6 Pods (Gen 5) Cartridge See Rx Instructions .ROUTE .MEDSUPPLY Qty: 15 11RF Rx Instructions: Change every 2 days (DME) FreeStyle Lite Strips Strip See Rx Instructions .ROUTE .MEDSUPPLY Qty: 100 3RF Rx Instructions: testing 1 X daily amoxicillin-pot clavulanate 875-125 mg tablet 1 tab PO BID 5 Days Qty: 10 0RF azithromycin 250 mg tablet See Rx Instructions PO .COMPLEX Qty: 6 0RF Rx Instructions: For 250 mg dose pack: take 500 mg today (day 1), then 250 mg for 4 days (days 2-5) PO Referrals Referrals: Zaynab Gomez MD [Primary Care Provider] - Discharge Problem: Pneumonia Qualifiers: Pneumonia type: due to unspecified organism Laterality: unspecified laterality Lung location: unspecified part of lung Qualified Code(s): J18.9 - Pneumonia, unspecified organism
[2024-02-20 13:53] LABS: BUN Creatinine Ratio 13.1 (10-20); Bilirubin Direct 0.1 mg/dl (0-0.2); Bilirubin,Total 0.6 mg/dl (0.2-1.0); Calcium 9.2 mg/dl (8.6-10.3); Creatinine Clr Calc Pharmacy 134.5 ml/min; Magnesium 2.1 mg/dl (1.7-2.4); Total Protein 7.7 gm/dl (6.0-8.3)
[2024-02-20 14:01] LABS: Partial Thromboplastin Ratio 1.2; Partial Thromboplastin Time 31 Seconds (21-31); Prothrombin Time 10.5 Seconds (9.0-12.0)
[2024-02-20 14:03] LABS: Troponin I High Sensitivity 54.9 pg/ml (0-20)
[2024-02-20] MEDS: cefTRIAXone SODIUM 2,000 MG/50 ML BAG IV STA (14:43)
[2024-02-20] MEDS: AZITHROMYCIN 250 MG TAB PO ONE (14:43)
[2024-02-20] MEDS ORDERED: DEXTROSE 50% 50 ML SYRINGE IV PRN (14:50)
[2024-02-20] MEDS ORDERED: CARBOHYDRATES FOR HYPOGLYCEMIA PO PRN (14:50)
[2024-02-20] MEDS ORDERED: PHARMACY GLYCEMIC MGMT CONSULT PRN (14:50)
[2024-02-20] MEDS ORDERED: GLUCOSE 10 TAB/TUBE PO PRN (14:50)
[2024-02-20] MEDS ORDERED: GLUCOSE 40% GEL 15 GM TUBE PO PRN (14:50)
[2024-02-20] MEDS ORDERED: GLUCAGON FOR INJ 1 MG VIAL SQ PRN (14:50)
[2024-02-20] MEDS ORDERED: ACETAMINOPHEN 325 MG TAB PO PRN (14:57)
--- NOTE | 2024-02-20 15:02 | Electrocardiogram Report ---
Test Reason : Blood Pressure : */* mmHG Vent. Rate : 78 BPM Atrial Rate : 78 BPM P-R Int : 172 ms QRS Dur : 118 ms QT Int : 398 ms P-R-T Axes : 38 37 37 degrees QTcB Int : 453 ms Normal sinus rhythm Non-specific intra-ventricular conduction delay Borderline ECG When compared with ECG of 20-Feb-2024 01:31, (unconfirmed) No significant change was found Confirmed by Leno Teran ([id number]) on 02/20/2024 3:02:15 PM Referred By: Confirmed By: Leno Teran
[2024-02-20] MEDS ORDERED: ALBUTEROL 0.083% NEBU SOLN 3 ML VIAL NEB PRN (15:14)
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
--- NOTE | 2024-02-20 16:06 | XCELERA ---
[id number]
[2024-02-20] MEDS: SODIUM CHLORIDE 0.9% 1,000 ML IV SCH ×2 (16:43→16:58)
[2024-02-20] MEDS: ASPIRIN 300 MG SUPP PR ONE (17:05)
[2024-02-20] MEDS ORDERED: ONDANSETRON INJ 2 MG/ML 2 ML VIAL IV PRN (17:06)
[2024-02-20] MEDS: ONDANSETRON INJ 2 MG/ML 2 ML VIAL IV PRN ×2 (17:27→22:12)
[2024-02-20] MEDS: LANTUS PER UNIT CHARGE SQ ONE (20:18)
[2024-02-20] MEDS: INSULIN ASPART PER UNIT CHARGE SC SCH (20:19)
[2024-02-20] MEDS: PROMETHAZINE 12.5 MG/50.5 ML BAG IV STA (23:15)
[2024-02-21] MEDS: SODIUM CHLORIDE 0.9% 1,000 ML IV SCH (02:28)
[2024-02-21 06:56] LABS: Basophils # (auto) 0.03 K/uL (0.00-0.20); Basophils % (auto) 0.4 %; Eosinophils # (auto) 0.06 K/uL (0.00-0.50); Eosinophils % (auto) 0.7 %; Hematocrit (blood only) 37.2 % (42.0-52.0); Hemoglobin 12.9 g/dl (14.0-18.0); Immature Granulocytes # (auto) 0.02 K/uL (0.01-0.20); Immature Granulocytes % (auto) 0.2 %; Lymphocytes # (auto) 2.37 K/uL (1.20-3.40); Lymphocytes % (auto) 29.4 %; Mean Corpuscular Hemoglobin 29.3 pg (25.0-34.0); Mean Corpuscular Hgb Conc 34.7 g/dL (32.0-36.0); Mean Corpuscular Volume 84.5 fL (80.0-100.0); Monocytes # (auto) 0.69 K/uL (0.11-0.59); Monocytes % (auto) 8.6 %; Neutrophils # (auto) 4.88 K/uL (1.40-6.50); Neutrophils % (auto) 60.7 %; Platelet Count 309 K/uL (130-400); RDW Coefficient of Variation 12.3 % (11.5-14.5); RDW Standard Deviation 37.2 fL (36.4-46.3); White Blood Count 8.05 K/ul (4.8-10.8)
[2024-02-21 07:21] LABS: Albumin Level 3.6 gm/dl (3.4-5.0); Bilirubin,Total 0.4 mg/dl (0.2-1.0); Calcium 8.6 mg/dl (8.6-10.3); Magnesium 2.1 mg/dl (1.7-2.4); Potassium 3.9 mmol/L (3.5-5.1)
[2024-02-21 07:28] LABS: Albumin Globulin Ratio 1.1 (0.9-2); BUN Creatinine Ratio 24.7 (10-20); Creatinine Clr Calc Pharmacy 182.4 ml/min; Globulin 3.2 gm/dl (2.5-4.0); Total Protein 6.8 gm/dl (6.0-8.3)
--- NOTE | 2024-02-21 08:07 | Hospitalist Progress Note ---
Date of Service February 21, 2024 Assessment & Plan (1) Pneumonia: (2) Nausea & vomiting: (3) Dyslipidemia: (4) Diabetes type 1, uncontrolled: Plan 1) Pneumonia - Left lower lobe pneumonia. Community-acquired. IV Rocephin. IV azithromycin. Sputum cultures. - COVID-19, negative; BioFire Resp panel, cash-negative 2) Elevated troponins at 59. # resolved - HS Trops, 42.2 <-- 59 - EKG is nonacute. aspirin, 300 mg, PO, given once. - Echocardiogram: 1) LV systolic function normal, 2) LV EF, 55-60%, 3) no regional wall motion abnormalities, no valvular pathology - Patient does state per his mother that there is a family history of coronary artery disease in his father but not at a young age as well as some uncles on his father side. 3) Intractable nausea and vomiting. - NPO. IV fluids, Gave a 1 L bolus of saline. Will give saline at 100 cc an hour for an additional second liter. - Will then reassess volume status given the national IV fluid shortage as discussed above. - Promethazine, 12.5 mg, IV, q8hrs - Promethazine, 25 mg, IM, ONCE given 4) Early/evolving diabetic ketoacidosis with an elevated anion gap. - IV fluids for now and subcutaneous insulin for now I do not feel we need an insulin drip at this point but will watch the patient from a metabolic standpoint carefully. - AG, 10; K, 3.9; Mg, 2.1; P, ?? - Repeat BMP (02/20, 14:00), WNL 5) Diabetes mellitus type 1. - Twice daily Lantus as ordered as well as insulin sliding scale. 6) Hypertension. - Continue home medications. 7) History of dyslipidemia - continue home medications. 8) Acute hypoxemic respiratory failure - O2 Sats: 92 <-- 87% on room air. - Oxygen supplementation and antibiotics as above; nebulizers, PRN Code status: Full code Disposition: PCU-Tele VTE Prophylaxis: SCD's (to knee) FENGI: Clear liquids Admission and Anticipated Discharge Date Admission Date: February 20, 2024 Supervising Physician Co-Signing Physician Notes I personally examined the patient and verified all rivas points of history and exam, discussed case, and agree with decision making with Dr Velez feeling a lot of nausea cherie noted uncomfortable from nausea nad breathing unlabored no accessory muscles good effort skin no rashes no pallor or icterus CAP, intractable nausea, DM1 with mild DKA type physiology - IV fluids, IV abx, supportive care, antiemetics, time DVT proph - ambulation Subjective Patient is a 33 yo M w/a PMHx of Type 1 diabetes, Class 1 obesity, ED, HTN, hypothyroidism, diabetic peripheral neuropathy who presented to the hospital w/ signs and symptoms concerning for pneumonia, along w/ N/V. Patient continues to have persistent, non-bloody N/V this morning along w/ crampy AP, but w/out any symptoms of fever, chills. Patient denies any other symptoms, and is AAO x 4. Review of Systems Constitutional: no fever, no chills and no body aches Respiratory: + cough; no dyspnea Cardiovascular: no chest pain, no dyspnea and no palpitations Gastrointestinal: + nausea, + vomiting and + cramping; no constipation and no diarrhea/loose stools Genitourinary: no dysuria or no urinary frequency Neurologic: no tingling and no numbness Physical Exam Constitutional: WD/WN, vitals as above Respiratory: Auscultation: + diminished lung sounds; no crackles and no wheezes Cardiovascular: RRR, no murmur, no edema Gastrointestinal (Abdomen): Inspection/Auscultation: abdomen normal to inspection and normal bowel sounds; abdomen not distended Percussion/Palpation: + abdomen tender (mild tenderness w/ palpation) and abdomen soft Psychiatric: A+Ox3, euthymic affect Results & Data Results & Data Vital Signs (Past 12 Hours) Vital Signs Temp Pulse Pulse Resp BP Pulse Ox O2 Del Method 02/21/24 07:34 36.4 C L 69 18 129/76 92 Room Air 02/21/24 02:55 36.4 C L 62 18 122/78 90 Room Air 02/20/24 23:10 73 02/20/24 23:00 36.6 C 70 16 159/94 H 95 Room Air 02/20/24 20:13 36.8 C 85 18 162/90 H 95 Room Air Resident Activity Tracking Resident Involvement: Resident Care Provided Care Provided: Adult Hospital Medicine (1) Pneumonia Laterality: unspecified laterality Lung location: unspecified part of lung Pneumonia type: due to unspecified organism Qualified Code(s): J18.9 - Pneumonia, unspecified organism
[2024-02-21 08:47] LABS: Estimated Average Glucose 197 mg/dl; Hemoglobin A1C 8.5 % (4.5-5.6)
[2024-02-21] MEDS: PROMETHAZINE 12.5 MG/50.5 ML BAG IV PRN (11:01)
[2024-02-21 12:08] LABS: Appearance Urine Clear (Clear); Bacteria Urine Automated None Seen (None Seen); Bilirubin Urine Negative (Negative); Blood Urine 1+ (Negative); Color Urine Dark Yellow; Epithelial Cell Urine Auto 0-2 /hpf (0-2); Glucose Urine UA 3+ (Negative); Ketones Urine 2+ (Negative); Leukocyte Esterase Urine Negative (Negative); Mucus Urine Present (None Prsent); Nitrite Urine Negative (Negative); Protein Urine 4+ (Negative); RBC Urine Automated 0-2 /hpf (0-2); Specific Gravity Urine 1.035 (1.000-1.030); Urobilinogen Urine Negative (Negative); WBC Urine Automated 0-5 /hpf (0-5)
[2024-02-21] MEDS: LACTATED RINGER'S 1,000 ML IV ONE (13:32)
[2024-02-21] MEDS: AZITHROMYCIN 250 MG TAB PO SCH (13:35)
--- NOTE | 2024-02-21 13:50 | Pharmacy Report ---
Pharmacy Glycemic Short Note 2 - Date of Service February 21, 2024 - Glycemic Short BSG Results (Last 24 hours): 02/20/24 02/20/24 02/20/24 13:07 17:26 20:05 Glucose 212 H POC Glucose 175 H 169 H 02/21/24 02/21/24 02/21/24 00:15 06:10 06:31 Glucose 101 H POC Glucose 145 H 101 H 02/21/24 11:53 Glucose POC Glucose 137 H OUTPATIENT ANTIDIABETIC REGIMEN: * Lantus 55 units SC qAM * Novolog 5 units SC TIDM * Jardiance 25 mg PO daily HbA1c: 8.5% (02/21/24) ASSESSMENT: * TV is a 33 year old male with T1DM admitted for inpatient treatment of CAP and intractable nausea/vomiting * Anion gap of 12 on admission, but carbon dioxide 30 mmol/L, VBG pH of 7.38, and BSG of 212 mg/dL - no indication for insulin gtt at this time * Received 20 units of basal yesterday evening * Patient still vomiting today, remains NPO. May need to consider initiation of dextrose fluids to allow for adequate basal dosing in patient w/ T1DM. * Blood sugars have been reasonably well-controlled since time of admission. PLAN FOR INPATIENT GLYCEMIC CONTROL: * Hold outpatient oral diabetes medications * Basal insulin * Lantus 20 units SC x 1 this afternoon * Bolus insulin * NovoLog per scale ACHS or Q4hrs while NPO * Goal Range: Low 110 mg/dL - High 140 mg/dL * Correction Factor: 15 mg/dL/unit * Nutritional / Prandial insulin per carb ratio of 1 unit per 5 grams CHO consumed
[2024-02-21] MEDS: LANTUS PER UNIT CHARGE SC ONE (14:06)
[2024-02-21] MEDS ORDERED: PROCHLORPERAZINE 5 MG/ML 2 ML VIAL IM PRN (14:55)
--- NOTE | 2024-02-21 14:56 | Billing Data ---
Date of Service February 21, 2024 Coding Level of Care Code 54394 SUB INP/OBS CARE MIN
[2024-02-21] MEDS ORDERED: AZITHROMYCIN 500 MG in DEXTROSE 5% 250 ML IV SCH (15:00)
[2024-02-21 15:11] LABS: Creatinine Clr Calc Pharmacy 164.4 ml/min
[2024-02-21] MEDS: cefTRIAXone SODIUM 2,000 MG/50 ML BAG IV SCH (15:22)
[2024-02-21] MEDS: INSULIN ASPART PER UNIT CHARGE SC SCH (16:28)
[2024-02-21] MEDS: PROMETHAZINE HCL INJ 25 MG/ML 1 ML VIAL IM PRN (16:42)
[2024-02-21] MEDS: LACTATED RINGER'S 1,000 ML IV SCH (17:59)
[2024-02-21] MEDS ORDERED: LANTUS PER UNIT CHARGE SC SCH (18:00)
[2024-02-22 07:02] LABS: Basophils # (auto) 0.03 K/uL (0.00-0.20); Basophils % (auto) 0.3 %; Eosinophils # (auto) 0.03 K/uL (0.00-0.50); Eosinophils % (auto) 0.3 %; Hematocrit (blood only) 36.7 % (42.0-52.0); Hemoglobin 12.9 g/dl (14.0-18.0); Immature Granulocytes % (auto) 0.9 %; Lymphocytes # (auto) 2.06 K/uL (1.20-3.40); Lymphocytes % (auto) 18.9 %; Mean Corpuscular Hgb Conc 35.1 g/dL (32.0-36.0); Mean Corpuscular Volume 82.5 fL (80.0-100.0); Mean Platelet Volume 9.9 fL (9.4-12.4); Monocytes # (auto) 0.63 K/uL (0.11-0.59); Monocytes % (auto) 5.8 %; Neutrophils # (auto) 8.06 K/uL (1.40-6.50); Neutrophils % (auto) 73.8 %; Platelet Count 377 K/uL (130-400); RDW Coefficient of Variation 12.2 % (11.5-14.5); RDW Standard Deviation 36.9 fL (36.4-46.3); Red Blood Count 4.45 M/uL (4.70-6.10); White Blood Count 10.91 K/ul (4.8-10.8)
[2024-02-22 07:31] LABS: Calcium 8.7 mg/dl (8.6-10.3); Creatinine Clr Calc Pharmacy 199.8 ml/min; Potassium 3.8 mmol/L (3.5-5.1)
--- NOTE | 2024-02-22 07:56 | Hospitalist Progress Note ---
Date of Service February 22, 2024 Assessment & Plan (1) Pneumonia: (2) Nausea & vomiting: (3) Dyslipidemia: (4) Diabetes type 1, uncontrolled: Plan 1) Pneumonia - Left lower lobe pneumonia. Community-acquired. IV Rocephin. IV azithromycin. Sputum cultures. - COVID-19, negative; BioFire Resp panel, cash-negative 2) Intractable nausea and vomiting. - Clear liquid diet. IV fluids, giving LR, 1L, PRN, re-evaluating after. - CMP, WNL upon admission; ordered lipase, 3 - Will then reassess volume status given the national IV fluid shortage as discussed above. - CT-AP (w/ oral and IV contrast) ordered, results pending - Promethazine, 25 mg, IM, Q8hr, PRN and metoclopramide, 10 mg, IV, q8hr, EDUARD - symptoms would be consistent w/ gastroparesis though other causes need to be ruled out 3) Elevated troponins at 59. # resolved - HS Trops, 42.2 <-- 59 - EKG is nonacute. aspirin, 300 mg, PO, given once. - Echocardiogram: 1) LV systolic function normal, 2) LV EF, 55-60%, 3) no regional wall motion abnormalities, no valvular pathology - Patient does state per his mother that there is a family history of coronary artery disease in his father but not at a young age as well as some uncles on his father side. 4) Evolving DKA #resolved - IV fluids for now and subcutaneous insulin for now I do not feel we need an insulin drip at this point but will watch the patient from a metabolic standpoint carefully. - AG, 10; K, 3.9; Mg, 2.1; - Repeat BMP's, WNL 5) Diabetes mellitus type 1. - Twice daily Lantus as ordered as well as insulin sliding scale. 6) Hypertension. - held home meds, secondary to N/V, restart once N/V improves 7) History of dyslipidemia - held home meds, secondary to N/V, restart once N/V improves 8) Acute hypoxemic respiratory failure - O2 Sats: 92 <-- 87% on room air. - Oxygen supplementation and antibiotics as above; nebulizers, PRN 9) Hypothyroidism - held home meds, secondary to N/V, restart once N/V improves Code status: Full code Disposition: PCU-Tele VTE Prophylaxis: SCD's (to knee) FENGI: Clear liquids Admission and Anticipated Discharge Date Admission Date: February 20, 2024 Supervising Physician Co-Signing Physician Notes I personally examined the patient and verified all rivas points of history and exam, discussed case, and agree with decision making with Dr Velez nausea no better vitlas noted laying on side appearing mildly nauseated but otherwise nad breathing unlabored no accessory muscles good effort skin no rashes no pallor or icterus CAP, intractable nausea, DM1 with mild DKA type physiology - IV fluids, IV abx, supportive care, antiemetics, time - pneumonia appearing improving, DKA physiology resolved - w n/v persisting - more concerning that he has gastroparesis exacerbated by pneumonia. givne risk for other pathology - CT abd/pelvis to r/o other causes. ongoing supportive care DVT proph - ambulation otherwise as above Subjective Patient is a 33 yo M w/a PMHx of Type 1 diabetes, Class 1 obesity, ED, HTN, hypothyroidism, diabetic peripheral neuropathy who presented to the hospital w/ signs and symptoms concerning for pneumonia, along w/ intermittent N/V since Friday before Friday admission (Friday was w/out N/V). Patient continues to have persistent, non-bloody N/V this morning along w/ crampy AP, but w/out any symptoms of fever, chills. Patient denies any other symptoms, besides intermittent cough and is AAO x 4. Review of Systems Constitutional: no fever, no chills and no body aches Respiratory: + cough; no dyspnea Cardiovascular: no chest pain, no dyspnea and no palpitations Gastrointestinal: + nausea, + vomiting, + cramping and + c hange in bowel habits (pt has not had BM since Friday); no constipation and no diarrhea/loose stools Genitourinary: no dysuria or no urinary frequency Neurologic: no tingling and no numbness Physical Exam Constitutional: WD/WN, vitals as above Respiratory: Auscultation: + diminished lung sounds; no crackles and no wheezes Cardiovascular: RRR, no murmur, no edema Gastrointestinal (Abdomen): Inspection/Auscultation: abdomen normal to inspection and normal bowel sounds; abdomen not distended Percussion/Palpation: + abdomen tender (mild tenderness w/ palpation) and abdomen soft Psychiatric: A+Ox3, euthymic affect Results & Data Results & Data Vital Signs (Past 12 Hours) Vital Signs Temp Pulse Pulse Resp BP Pulse Ox O2 Del Method 02/22/24 07:36 36.9 C 71 18 150/84 H 94 Room Air 02/22/24 03:09 36.7 C 67 14 181/98 H 95 Room Air 02/21/24 22:47 36.5 C 75 16 155/95 H 94 Room Air 02/21/24 22:45 69 (1) Pneumonia Laterality: unspecified laterality Lung location: unspecified part of lung Pneumonia type: due to unspecified organism Qualified Code(s): J18.9 - Pneumonia, unspecified organism
[2024-02-22] MEDS: LACTATED RINGER'S 1,000 ML IV ONE (09:12)
[2024-02-22] MEDS: LANTUS PER UNIT CHARGE SC ONE (12:13)
[2024-02-22] MEDS: METOCLOPRAMIDE HCL INJ 5 MG/ML 2 ML VIAL IV SCH (13:20)
[2024-02-22] MEDS: PROMETHAZINE HCL INJ 25 MG/ML 1 ML VIAL IM PRN (14:09)
[2024-02-22] MEDS: LACTATED RINGER'S 1,000 ML IV SCH (14:14)
[2024-02-22] MEDS: OPTIRAY 320 100ml IV ONE (15:51)
--- NOTE | 2024-02-22 16:21 | Billing Data ---
Date of Service February 22, 2024 Coding Level of Care Code 17100 SUB INP/OBS CARE MIN
--- NOTE | 2024-02-22 16:22 | CT Scan Report ---
ABDOMEN AND PELVIS CT WITH IV AND ORAL CONTRAST CT DOSE: 1617.54 mGy.cm HISTORY: Acute generalized abdominal pain with nausea and vomiting persistent N/V of 6 days TECHNIQUE: Multiaxial CT images of the abdomen and pelvis were performed following the IV administrat ion of 94 cc of Optiray and oral contrast. A dose lowering technique was utilized adhering to the pr inciples of JAGJIT. COMPARISON STUDY: CT abdomen and pelvis 07/20/2019, chest radiograph 02/19/2024. FINDINGS: Patchy groundglass and consolidative left lower lobe opacities. Trace left pleural effusion . No free air. Mildly enlarged spleen, 14.6 cm. The pancreas, gallbladder and adrenal glands are with in normal limits. Mild focal fatty infiltration of the left hepatic lobe near the falciform ligament. Patency of the hepatic and portal veins. Right greater than left bilateral perinephric stranding. No hydronephrosis. Unremarkable urinary bladder. Calcifications of the vas deferens. Aorta and IVC are unremarkable. No lymphadenopathy. No bowel obstruction or bowel wall thickening. The majority of the large bowel is decompressed. The v isualized appendix appears noninflamed. No acute fracture. IMPRESSION: 1. Persistent left lower lobe pneumonia. 2. No bowel obstruction or bowel wall thickening. 3. No CT evidence of acute appendicitis. 4. Mild nonspecific bilateral perinephric stranding. Correlate with urinalysis. 5. Splenomegaly. ACT 112: Negative or not required by law. The above report was generated using voice recognition software. It may contain grammatical, syntax o r spelling errors. Electronically signed by: Ney Velasquez M.D. 02/22/2024 4:20 PM
[2024-02-23 06:07] LABS: Basophils # (auto) 0.04 K/uL (0.00-0.20); Basophils % (auto) 0.4 %; Eosinophils # (auto) 0.07 K/uL (0.00-0.50); Eosinophils % (auto) 0.7 %; Hematocrit (blood only) 37.8 % (42.0-52.0); Hemoglobin 13.3 g/dl (14.0-18.0); Immature Granulocytes # (auto) 0.17 K/uL (0.01-0.20); Immature Granulocytes % (auto) 1.6 %; Lymphocytes # (auto) 1.82 K/uL (1.20-3.40); Lymphocytes % (auto) 17.3 %; Mean Corpuscular Hgb Conc 35.2 g/dL (32.0-36.0); Mean Corpuscular Volume 82.5 fL (80.0-100.0); Mean Platelet Volume 9.7 fL (9.4-12.4); Monocytes # (auto) 0.76 K/uL (0.11-0.59); Monocytes % (auto) 7.2 %; Neutrophils # (auto) 7.67 K/uL (1.40-6.50); Neutrophils % (auto) 72.8 %; Platelet Count 381 K/uL (130-400); RDW Standard Deviation 36.3 fL (36.4-46.3); Red Blood Count 4.58 M/uL (4.70-6.10); White Blood Count 10.53 K/ul (4.8-10.8)
[2024-02-23 06:16] LABS: Calcium 8.6 mg/dl (8.6-10.3); Creatinine Clr Calc Pharmacy 194.2 ml/min; Potassium 3.8 mmol/L (3.5-5.1)
--- NOTE | 2024-02-23 07:39 | Hospitalist Progress Note ---
Date of Service February 23, 2024 Assessment & Plan (1) Pneumonia: (2) Nausea & vomiting: (3) Dyslipidemia: (4) Diabetes type 1, uncontrolled: Plan 1) Pneumonia - Left lower lobe pneumonia. Community-acquired. Continue IV Rocephin (day 3), discontinue IV azithromycin. - COVID-19, negative; BioFire Resp panel, cash-negative 2) Intractable nausea and vomiting. - Clear liquid diet. Continue IV fluids given ongoing PO intolerance. - CT-AP (w/ oral and IV contrast) without significant bowel pathology that would explain sx. - Continue Promethazine, 25 mg, IM, Q8hr, PRN and metoclopramide, 10 mg, IV, q8hr, EDUARD - Presentation could be consistent w/ gastroparesis though etiology remains unclear at this time - if sx persist into tomorrow, consider GI consult. 4) Evolving DKA #resolved - Continue IV fluids and monitoring of metabolic labs. 5) Diabetes mellitus type 1. - Twice daily Lantus as ordered as well as insulin sliding scale. 6) Hypertension. - held home meds, secondary to N/V, restart once N/V improves 7) History of dyslipidemia - held home meds, secondary to N/V, restart once N/V improves 8) Acute hypoxemic respiratory failure - Resolved: - SpO2 stable on room air. 9) Hypothyroidism - held home meds, secondary to N/V, restart once N/V improves Code status: Full code Disposition: PCU-Tele VTE Prophylaxis: SCD's (to knee) FENGI: Clear liquids, LR @125mL/hour Admission and Anticipated Discharge Date Admission Date: February 20, 2024 Supervising Physician Co-Signing Physician Notes Attending Physician Supervision Note: I independently interviewed and examined the patient and verified the rivas history and physical, reviewed labs and image studies and agree with findings and care plan noted above. Here for intractable nausea after being diagnosed with pneumonia and started on abx. Nausea persisting vitals noted nad heent nc at mmm breathing unlabored no accessory muscles good effort skin no rashes no pallor or icterus neuro no focal deficits. L base crackles. CAP - d/c azithromycin. continue rocephin (started 02/19) - d/c in am. Intractable nausea - Neg imaging. concern of underlying gastroparesis sec to DM1. d/del zithromycin if contributing. continue antiemetics. -continue IVF -consider GI consult for EGD if symptoms persists. DM1 - Suspect brittle ds considering the fluctuations in the readings. -sugars controlled with current regimen while PO intake limited. DVT proph - ambulation otherwise as above Subjective Patient is a 33 yo M w/a PMHx of Type 1 diabetes, Class 1 obesity, ED, HTN, hypothyroidism, diabetic peripheral neuropathy who presented to the hospital w/ signs and symptoms concerning for pneumonia, along w/ intermittent N/V since Friday before Friday admission. Ongoing N/V, 4-5 episodes of vomiting since yesterday, non-bloody, poor PO intake, drank a small amount of OJ and water this AM. Patient does not think Promethazine and Metoclopramide have had much impact on sx. Deneis diarrhea, last BM last Friday. Denies urinary sx. Denies fevers/chills. Review of Systems Review of Systems: as per HPI Physical Exam Physical Exam: General: Alert and oriented. No acute distress Cardiac: Regular rate and rhythm, no murmurs appreciated Respiratory: Lungs clear to auscultation bilaterally, No increased work of breathing Abdominal: Soft, non-tender, non-distended. Bowel sounds present. Psych: mood affect congruence. Results & Data Results & Data Vital Signs (Past 12 Hours) Vital Signs Temp Pulse Pulse Resp BP Pulse Ox O2 Del Method 02/23/24 03:02 36.7 C 67 16 139/78 90 Room Air 02/22/24 22:55 36.8 C 67 18 169/95 H 96 Room Air 02/22/24 21:55 73 Resident Activity Tracking Resident Involvement: Resident Care Provided Care Provided: Adult Hospital Medicine (1) Pneumonia Laterality: unspecified laterality Lung location: unspecified part of lung Pneumonia type: due to unspecified organism Qualified Code(s): J18.9 - Pneumonia, unspecified organism
[2024-02-23] MEDS: LANTUS PER UNIT CHARGE SC SCH (08:46)
--- NOTE | 2024-02-23 12:52 | Pharmacy Report ---
Pharmacy Glycemic Short Note 2 - Date of Service February 23, 2024 - Glycemic Short BSG Results (Last 24 hours): 02/22/24 02/22/24 02/23/24 15:25 20:11 00:02 POC Glucose 151 H 117 H 119 H Fasting Glucose 02/23/24 02/23/24 02/23/24 04:36 05:34 08:40 POC Glucose 141 H 160 H Fasting Glucose 154 H 02/23/24 12:33 POC Glucose 147 H Fasting Glucose OUTPATIENT ANTIDIABETIC REGIMEN: * Lantus 55 units SC qAM * Novolog 5 units SC TIDM * Jardiance 25 mg PO daily HbA1c: 8.5% (02/21/24) ASSESSMENT: 02/22 * Kannan received 21 units of insulin yesterday (20 were basal) * Fasting BSG this AM acceptable, continue current basal regimen. Diet advanced to clears, still having nausea and vomitting and not tolerating. * Correction factor correcting appropriately, unable to assess carbohydrate ratio at this time. 02/20 * TV is a 33 year old male with T1DM admitted for inpatient treatment of CAP and intractable nausea/vomiting * Anion gap of 12 on admission, but carbon dioxide 30 mmol/L, VBG pH of 7.38, and BSG of 212 mg/dL - no indication for insulin gtt at this time * Received 20 units of basal yesterday evening * Patient still vomiting today, remains NPO. May need to consider initiation of dextrose fluids to allow for adequate basal dosing in patient w/ T1DM. * Blood sugars have been reasonably well-controlled since time of admission. PLAN FOR INPATIENT GLYCEMIC CONTROL: * Hold outpatient oral diabetes medications * Basal insulin * Lantus 20 units SC daily * Bolus insulin * NovoLog per scale ACHS or Q4hrs while NPO * Goal Range: Low 110 mg/dL - High 140 mg/dL * Correction Factor: 15 mg/dL/unit * Nutritional / Prandial insulin per carb ratio of 1 unit per 5 grams CHO consumed
[2024-02-24 07:01] LABS: Hematocrit (blood only) 37.6 % (42.0-52.0); Hemoglobin 13.6 g/dl (14.0-18.0); Mean Corpuscular Hemoglobin 29.3 pg (25.0-34.0); Mean Corpuscular Hgb Conc 36.2 g/dL (32.0-36.0); Mean Platelet Volume 9.5 fL (9.4-12.4); Platelet Count 436 K/uL (130-400); RDW Coefficient of Variation 11.9 % (11.5-14.5); RDW Standard Deviation 34.8 fL (36.4-46.3); Red Blood Count 4.64 M/uL (4.70-6.10); White Blood Count 11.56 K/ul (4.8-10.8)
--- NOTE | 2024-02-24 07:07 | Hospitalist Progress Note ---
Date of Service February 24, 2024 Assessment & Plan (1) Pneumonia: (2) Nausea & vomiting: (3) Dyslipidemia: (4) Diabetes type 1, uncontrolled: Plan 1) Pneumonia - Left lower lobe pneumonia. Community-acquired. S/p treatment with Ceftriaxone + Azithromycin. - COVID-19, negative; BioFire Resp panel, cash-negative 2) Intractable nausea and vomiting. - Continue clear liquid diet. Will monitor PO intake over the day, tentative plan to discontinue IV fluids after current bag. - CT-AP (w/ oral and IV contrast) without significant bowel pathology that would explain sx. - Continue Promethazine 25 mg Q8hr PRN and metoclopramide 10 mg q8hr PRN - Start IV Protonix 40mg BID - Presentation could be consistent w/ gastroparesis though definitive etiology remains unclear at this time - GI consulted, appreciate recs 4) Evolving DKA #resolved - Continue monitoring of metabolic labs. 5) Diabetes mellitus type 1. - Twice daily Lantus as ordered as well as insulin sliding scale. 6) Hypertension. - held home meds, secondary to N/V, restart once N/V improves 7) History of dyslipidemia - held home meds, secondary to N/V, restart once N/V improves 8) Acute hypoxemic respiratory failure - Resolved: - SpO2 stable on room air. 9) Hypothyroidism - held home meds, secondary to N/V, restart once N/V improves Code status: Full code Disposition: PCU-Tele VTE Prophylaxis: SCD's (to knee) FENGI: Clear liquids Admission and Anticipated Discharge Date Admission Date: February 20, 2024 Supervising Physician Co-Signing Physician Notes Attending Physician Supervision Note: I independently interviewed and examined the patient and verified the rivas history and physical, reviewed labs and image studies and agree with findings and care plan noted above. Here for intractable nausea after being diagnosed with pneumonia and started on abx. Nausea persisting. vomiting as well. vitals noted nad heent nc at mmm breathing unlabored no accessory muscles good effort skin no rashes no pallor or icterus neuro no focal deficits. L base crackles. Abd soft/nt CAP - Respiratory status stable - no fever, wbc slightly high. 94% on RA. finished azithromycin. finished 5 days of rocephin. Also had augmentin as outpatient. Procalcitonin normal on admission. -will d/c ceftriaxone. Intractable nausea - Neg imaging. concern of underlying gastroparesis sec to DM1. d/del zithromycin if contributing. continue antiemetics. -continue IVF -Add protonix. -continue antiemetics. -GI consult added as well due to persistent symptoms. DM1 - Suspect brittle ds considering the fluctuations in the readings. -sugars controlled with current regimen while PO intake limited. DVT proph - ambulation otherwise as above Subjective Patient is a 33 yo M w/a PMHx of Type 1 diabetes, Class 1 obesity, ED, HTN, hypothyroidism, diabetic peripheral neuropathy who presented to the hospital w/ signs and symptoms concerning for pneumonia, along w/ intermittent N/V since Friday before Friday admission. N/V ongoing, 3-4 episodes of vomiting since last night, non-bloody, PO intake improving, still vomiting intermittently in response to PO fluids. Oddly, patient feels Reglan has been making vomiting worse, felt he was doing well after drinking broth and shaved ice last night, later vomited shortly after being given Reglan. Denies diarrhea, last BM last Friday. Denies urinary sx. Denies fevers/chills. Review of Systems Review of Systems: as per HPI Physical Exam Physical Exam: General: Alert and oriented. No acute distress Cardiac: Regular rate and rhythm, no murmurs appreciated Respiratory: Lungs clear to auscultation bilaterally, No increased work of breathing Abdominal: Soft, non-tender, non-distended. Bowel sounds present. Psych: mood affect congruence. Results & Data Results & Data Vital Signs (Past 12 Hours) Vital Signs Temp Pulse Pulse Resp BP Pulse Ox O2 Del Method 02/24/24 03:59 36.7 C 69 18 160/52 H 93 Room Air 02/23/24 23:39 36.7 C 72 18 156/76 H 95 Room Air 02/23/24 21:54 56 L 02/23/24 19:25 37.0 C 67 18 168/96 H 93 Room Air Resident Activity Tracking Resident Involvement: Resident Care Provided Care Provided: Adult Hospital Medicine (1) Pneumonia Laterality: unspecified laterality Lung location: unspecified part of lung Pneumonia type: due to unspecified organism Qualified Code(s): J18.9 - Pneumonia, unspecified organism
[2024-02-24 07:23] LABS: Albumin Globulin Ratio 1.1 (0.9-2); Albumin Level 3.5 gm/dl (3.4-5.0); BUN Creatinine Ratio 18.2 (10-20); Bilirubin,Total 0.4 mg/dl (0.2-1.0); Calcium 8.8 mg/dl (8.6-10.3); Creatinine Clr Calc Pharmacy 202.3 ml/min; Globulin 3.2 gm/dl (2.5-4.0); Potassium 3.8 mmol/L (3.5-5.1); Total Protein 6.7 gm/dl (6.0-8.3)
[2024-02-24] MEDS ORDERED: METOCLOPRAMIDE HCL INJ 5 MG/ML 2 ML VIAL IV PRN (08:39)
[2024-02-24] MEDS: PANTOPRAZOLE 40 MG IV ONE (10:25)
[2024-02-24] MEDS: PANTOprazole 40 MG/10 ML SYR IV SCH (10:26)
[2024-02-24] MEDS: ONDANSETRON INJ 2 MG/ML 2 ML VIAL IV PRN (16:28)
--- NOTE | 2024-02-24 16:50 | Gastrointestinal Consultation ---
Date of Consultation February 24, 2024 Assessment & Plan (1) Nausea & vomiting: Young man with vomiting. I am not completely clear if there is nausea associated with it. On some occasions he says that food just comes back on him as if it was pure regurgitation. This is not a chronic issue for him as he says that usually he doesn't vomit so I don't think gastroparesis is the issue unless it is related to his pneumonia. As a rule nausea and vomiting is the result of processes going on outside of the stomach and are not related to upper GI pathology itself. With the lack of pain I don't think ulcer disease or obstruction is the issue. It seemed to have coincided with the onset of his symptoms related to his pneumonia so perhaps it is related to that. As he is improving I would like to follow his vomiting as his pneumonia is treated. We may end up doing EGD but my guess is it will be unremarkable. He agrees with this plan. History of Present Illness Reason for Consultation: intractable vomiting Attending Physician: Lucila Sherman MD History of Present Illness 33 year old man with vomiting. He says it started last week. On Friday he had fever chills and a cough. He vomited some on Friday but on the vomiting got bad. He went to ER, was settled down and then went home. It returned on Friday so he came back and was admitted. He also had evidence of pneumonia at admit. His vomiting has persisted but he says it is getting better. He tells me he doesn't retch and that food comes back on its own. When asked if he was nauseated he says "I would think so". When pinned down about it he doesn't have much nausea. He denies pain with it. He was seen in the hospital four years ago for vomiting and no specific etiology was discovered. He says he usually doesn't vomit and does not see GI as an outpatient for it. He says he has never had an EGD. he tells me his blood sugars range 100-200's at home. He also says he was "borderline DKA" on admit. He denies intake of supplements. He denies marijuana use/abuse Allergies Allergy/AdvReac Type Severity Reaction Status Date / Time No Known Allergies Allergy Verified 02/19/24 10:38 Home Medications Medication Instructions Recorded Confirmed Type pen needle, diabetic 32 gauge x #100 ea 05/14/21 02/19/24 Rx 5/32" (BD Ultra-Fine Kayla Pen Needle) ergocalciferol (vitamin D2) 1,250 50,000 unit PO 3XWK #12 caps 05/15/23 02/20/24 Rx mcg (50,000 unit) capsule atorvastatin 20 mg tablet 20 mg PO QPM #30 tabs 07/16/23 02/20/24 Rx levothyroxine 175 mcg tablet 175 mcg PO DAILY #30 tabs 07/16/23 02/20/24 Rx Dexcom G7 Sensor (blood-glucose #3 ea 08/06/23 02/19/24 Rx sensor) blood sugar diagnostic (FreeStyle #100 ea 08/11/23 02/19/24 Rx Lite Strips) insulin glargine 100 unit/mL (3 50 unit (0.5 mL) subcut QAM #15 mL 10/02/23 02/20/24 Rx mL) subcutaneous pen (Lantus Solostar U-100 Insulin) empagliflozin 25 mg tablet 25 mg PO DAILY #30 tabs 10/13/23 02/20/24 Rx (Jardiance) insulin pump cart,automated,BT #15 ea 11/06/23 02/19/24 Rx (Omnipod 5 G6 Pods (Gen 5) subcutaneous cartridge) insulin pump cartridge,automated #1 ea 11/06/23 02/19/24 Rx dose,BT with controller subcutaneous (Omnipod 5 G6 Intro Kit (Gen 5) subcutaneous cartridge with controller) lisinopril 40 mg tablet 40 mg PO DAILY #30 tabs 12/25/23 02/20/24 Rx insulin aspart U-100 100 unit/mL See Rx Instructions .Route 01/19/24 02/20/24 Rx (3 mL) subcutaneous pen (Novolog .COMPLEX #30 mL FlexPen U-100 Insulin aspart) acetone (urine) test (Ketone Urine #100 ea 02/05/24 02/19/24 Rx Test strips) insulin aspart U-100 100 unit/mL 70 unit (0.7 mL) continuous 02/05/24 02/20/24 Rx subcutaneous solution (Novolog subcutaneous infusion DAILY #30 mL U-100 Insulin aspart) amoxicillin 875 mg-potassium 1 tab PO BID 5 days #10 tabs 02/19/24 02/20/24 Rx clavulanate 125 mg tablet azithromycin 250 mg tablet See Rx Instructions PO .COMPLEX #6 02/19/24 02/20/24 Rx tabs Patient History Medical History History of COVID-19 04-04-20 TESTED + ([facility]) "TESTED FOR WORK PROTOCOL" DM type 1 (diabetes mellitus, type 1) HTN (hypertension) Leg wound, left Elias's thyroiditis Neurodermatitis Surgical History Nausea and vomiting after administration of anesthetic agent History of vitrectomy LEFT History of wisdom tooth extraction Family History Grandfather Diabetes Aunt Diabetes Other No family history of adverse response to anesthesia Denies family history of Ovarian cancer Prostate cancer Myocardial infarction Breast cancer Lung cancer Colorectal cancer Stroke Social History Smoking Status: Never smoker Second Hand Exposure: No; Do You Dip or Chew Tobacco: No; Hx Alcohol Use: Yes Alcohol type: beer Hx Substance Use: No Preferred Language: Mongolian Communication Ability: Effective Visual Impairment: Limited Hearing Ability: Normal Community Relations Manager Required: No Beliefs That Will Affect Care: None marital status: Current Living Situation: Parent current occupational status: employed 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 Safe at Home: Yes Childhood Exposure to Second-Hand Smoke: No Assistive Devices: None Review of Systems Review of Systems: All systems reviewed & are unremarkable except as noted in HPI & below Physical Exam Constitutional: WD/WN, vitals as above Neck: trachea midline, no thyromegaly Respiratory: normal respiratory effort, lungs clear to auscultation Cardiovascular: RRR, no murmur, no edema Gastrointestinal (Abdomen): normal bowel sounds, soft, nontender, no hepato splenomegaly Musculoskeletal: Extremities: extremities normal to inspection Results & Data Vital Signs (Past 12 Hours) Vital Signs Temp Pulse Pulse Resp BP Pulse Ox O2 Del Method 02/24/24 15:18 36.6 C 67 18 145/82 H 94 Room Air 02/24/24 11:55 72 02/24/24 11:30 36.6 C 82 18 129/82 94 Room Air 02/24/24 07:12 36.7 C 71 18 159/88 H 95 Room Air Laboratory Results 02/24/24 02/24/24 02/24/24 Range/Units 16:40 12:45 06:20 WBC 11.56 H (4.8-10.8) K/ul RBC 4.64 L (4.70-6.10) M/uL Hgb 13.6 L (14.0-18.0) g/dl Hct 37.6 L (42.0-52.0) % MCV 81.0 (80.0-100.0) fL MCH 29.3 (25.0-34.0) pg MCHC 36.2 H (32.0-36.0) g/dL RDW Std Deviation 34.8 L (36.4-46.3) fL RDW Coeff of Edie 11.9 (11.5-14.5) % Plt Count 436 H (130-400) K/uL MPV 9.5 (9.4-12.4) fL Sodium 133 L (136-145) mmol/L Potassium 3.8 (3.5-5.1) mmol/L Chloride 93 L (98-107) mmol/L Carbon Dioxide 30 (21-32) mmol/L Anion Gap 10 (3-11) BUN 12 (6-23) mg/dl Creatinine 0.66 (0.6-1.4) mg/dl Est Cr Clr Drug Dosing 202.3 ml/min eGFR 126.22 BUN/Creatinine Ratio 18.2 (10-20) Glucose 144 H (70-99(Fasting)) mg/dl POC Glucose 117 H 168 H (70-99) mg/dl Calcium 8.8 (8.6-10.3) mg/dl Total Bilirubin 0.4 (0.2-1.0) mg/dl AST 16 (13-39) U/L ALT 9 (7-52) U/L Alkaline Phosphatase 78 (34-104) U/L Total Protein 6.7 (6.0-8.3) gm/dl Albumin 3.5 (3.4-5.0) gm/dl Globulin 3.2 (2.5-4.0) gm/dl Albumin/Globulin Ratio 1.1 (0.9-2) 02/24/24 02/23/24 02/23/24 Range/Units 03:49 23:34 19:57 WBC (4.8-10.8) K/ul RBC (4.70-6.10) M/uL Hgb (14.0-18.0) g/dl Hct (42.0-52.0) % MCV (80.0-100.0) fL MCH (25.0-34.0) pg MCHC (32.0-36.0) g/dL RDW Std Deviation (36.4-46.3) fL RDW Coeff of Edie (11.5-14.5) % Plt Count (130-400) K/uL MPV (9.4-12.4) fL Sodium (136-145) mmol/L Potassium (3.5-5.1) mmol/L Chloride (98-107) mmol/L Carbon Dioxide (21-32) mmol/L Anion Gap (3-11) BUN (6-23) mg/dl Creatinine (0.6-1.4) mg/dl Est Cr Clr Drug Dosing ml/min eGFR BUN/Creatinine Ratio (10-20) Glucose (70-99(Fasting)) mg/dl POC Glucose 172 H 175 H 153 H (70-99) mg/dl Calcium (8.6-10.3) mg/dl Total Bilirubin (0.2-1.0) mg/dl AST (13-39) U/L ALT (7-52) U/L Alkaline Phosphatase (34-104) U/L Total Protein (6.0-8.3) gm/dl Albumin (3.4-5.0) gm/dl Globulin (2.5-4.0) gm/dl Albumin/Globulin Ratio (0.9-2) Diagnostic Findings Abdomen/Pelvis CT 02/22/24 12:[address] WITH IV AND ORAL CONTRAST CT DOSE: 1617.54 mGy.cm HISTORY: Acute generalized abdominal pain with nausea and vomiting persistent N/V of 6 days TECHNIQUE: Multiaxial CT images of the abdomen and pelvis were performed following the IV administration of 94 cc of Optiray and oral contrast. A dose lowering technique was utilized adhering to the principles of ALARA. COMPARISON STUDY: CT abdomen and pelvis 07/20/2019, chest radiograph 02/19/2024. FINDINGS: Patchy groundglass and consolidative left lower lobe opacities. Trace left pleural effusion. No free air. Mildly enlarged spleen, 14.6 cm. The pancreas, gallbladder and adrenal glands are within normal limits. Mild focal fatty infiltration of the left hepatic lobe near the falciform ligament. Patency of the hepatic and portal veins. Right greater than left bilateral perinephric stranding. No hydronephrosis. Unremarkable urinary bladder. Calcifications of the vas deferens. Aorta and IVC are unremarkable. No lymphadenopathy. No bowel obstruction or bowel wall thickening. The majority of the large bowel is decompressed. The visualized appendix appears noninflamed. No acute fracture. IMPRESSION: 1. Persistent left lower lobe pneumonia. 2. No bowel obstruction or bowel wall thickening. 3. No CT evidence of acute appendicitis. 4. Mild nonspecific bilateral perinephric stranding. Correlate with urinalysis. 5. Splenomegaly. ACT 112: Negative or not required by law. The above report was generated using voice recognition software. It may contain grammatical, syntax or spelling errors. Electronically signed by: Ney Velasquez M.D. 02/22/2024 4:20 PM
[2024-02-24] MEDS: PLASMA-LYTE A 1,000 ML IV SCH (21:32)
[2024-02-24] MEDS: PROCHLORPERAZINE 5 MG in SYRINGE 4 ML IV PRN (21:43)
--- NOTE | 2024-02-25 07:08 | Hospitalist Progress Note ---
Date of Service February 25, 2024 Assessment & Plan (1) Pneumonia: (2) Nausea & vomiting: (3) Dyslipidemia: (4) Diabetes type 1, uncontrolled: Plan 1) Pneumonia - Resolved - Left lower lobe pneumonia. Community-acquired. S/p treatment with Ceftriax one + Azithromycin. - COVID-19, negative; BioFire Resp panel, cash-negative 2) Intractable nausea and vomiting. - CT-AP (w/ oral and IV contrast) without significant bowel pathology that would explain sx. - Promethazine PRN and Zofran PRN orders placed previously - recommend trial discontinuation of antiemetics as they do not seem to be helping with N/V, continue to monitor - Diet progressed to regular, encouraged patient to consume whatever seems appealing. Continue to encourage PO fluid intake. AM labs with evidence of hemoconcentration - s/p additional 500cc IV fluids, continue to monitor and consider additional IV fluids as needed if insufficient PO intake. - Underlying process remains unclear - GI consulted, appreciate recs: - GI in agreement with diet advancement, continued monitoring with consideration of EGD if sx not improved by 02/26 - AM labs: CBC, BMP 4) Evolving DKA - Resolved - Continue monitoring of metabolic labs. 5) Diabetes mellitus type 1. - Twice daily Lantus as ordered as well as insulin sliding scale. 6) Hypertension. - held home meds, secondary to N/V, restart once N/V improves 7) History of dyslipidemia - held home meds, secondary to N/V, restart once N/V improves 8) Acute hypoxemic respiratory failure - Resolved: - SpO2 stable on room air. 9) Hypothyroidism - held home meds, secondary to N/V, restart once N/V improves Code status: Full code Disposition: PCU-Tele VTE Prophylaxis: SCD's (to knee) FENGI: Regular Admission and Anticipated Discharge Date Admission Date: February 20, 2024 Supervising Physician Co-Signing Physician Notes Attending Physician Supervision Note: I independently interviewed and examined the patient and verified the rivas history and physical, reviewed labs and image studies and agree with findings and care plan noted above. Here for intractable nausea after being diagnosed with pneumonia and started on abx. Nausea persisting. vomiting as well but overall feeling better. vitals noted nad heent nc at mmm breathing unlabored no accessory muscles good effort skin no rashes no pallor or icterus neuro no focal deficits. Intractable nausea - Neg imaging. -continue IVF since PO intake limited as noted on cbc. -Antiemetics not effective. -Advanced diet - assess. -If persistent symptoms - GI considering EGD on friday. CAP - finished azithromycin and rocephin. Also had augmentin as outpatient. Procalcitonin normal on admission. DM1 - Suspect brittle ds considering the fluctuations in the readings. -sugars controlled with current regimen while PO intake limited. DVT proph - ambulation otherwise as above Subjective Patient is a 33 yo M w/a PMHx of Type 1 diabetes, Class 1 obesity, ED, HTN, hypothyroidism, diabetic peripheral neuropathy who presented to the hospital w/ signs and symptoms concerning for pneumonia, along w/ intermittent N/V since Friday before Friday admission. N/V ongoing, estimates about 7 episodes of vomiting since yesterday, non-bloody, generally in response to PO intake. Unsure if anti-emetics helpful or if he is feeling nauseous. Denies diarrhea, last BM last Friday. Denies urinary sx. Denies fevers/chills. Denies SOB, minimal cough. Review of Systems Review of Systems: as per HPI Physical Exam Physical Exam: General: Alert and oriented. No acute distress Cardiac: Regular rate and rhythm, no murmurs appreciated Respiratory: Lungs clear to auscultation bilaterally, No increased work of breathing Abdominal: Soft, non-tender, non-distended. Bowel sounds present. Psych: mood affect congruence. Results & Data Results & Data Vital Signs (Past 12 Hours) Vital Signs Temp Pulse Pulse Resp BP Pulse Ox O2 Del Method 02/25/24 03:24 36.6 C 68 18 121/73 92 Room Air 02/24/24 23:19 36.5 C 104 H 18 143/84 H 92 Room Air 02/24/24 21:52 64 02/24/24 19:23 36.9 C 78 16 144/76 H 95 Room Air Resident Activity Tracking Resident Involvement: Resident Care Provided Care Provided: Adult Hospital Medicine (1) Pneumonia Laterality: unspecified laterality Lung location: unspecified part of lung Pneumonia type: due to unspecified organism Qualified Code(s): J18.9 - Pneumonia, unspecified organism
[2024-02-25 08:01] LABS: Hematocrit (blood only) 42.6 % (42.0-52.0); Mean Corpuscular Hemoglobin 28.7 pg (25.0-34.0); Mean Corpuscular Hgb Conc 35.2 g/dL (32.0-36.0); Mean Corpuscular Volume 81.5 fL (80.0-100.0); Mean Platelet Volume 9.3 fL (9.4-12.4); Platelet Count 528 K/uL (130-400); RDW Coefficient of Variation 12.2 % (11.5-14.5); RDW Standard Deviation 35.7 fL (36.4-46.3); Red Blood Count 5.23 M/uL (4.70-6.10); White Blood Count 14.41 K/ul (4.8-10.8)
[2024-02-25 08:20] LABS: Albumin Globulin Ratio 1.2 (0.9-2); Albumin Level 3.9 gm/dl (3.4-5.0); BUN Creatinine Ratio 18.4 (10-20); Bilirubin,Total 0.6 mg/dl (0.2-1.0); Calcium 8.9 mg/dl (8.6-10.3); Creatinine Clr Calc Pharmacy 175.4 ml/min; Globulin 3.3 gm/dl (2.5-4.0); Potassium 3.8 mmol/L (3.5-5.1); Total Protein 7.2 gm/dl (6.0-8.3)
[2024-02-25] MEDS: LANTUS PER UNIT CHARGE SC SCH (08:51)
--- NOTE | 2024-02-25 10:41 | Pharmacy Report ---
Pharmacy Glycemic Short Note 2 - Date of Service February 25, 2024 - Glycemic Short BSG Results (Last 24 hours): 02/24/24 02/24/24 02/24/24 12:45 16:40 20:08 Glucose POC Glucose 168 H 117 H 118 H 02/25/24 02/25/24 02/25/24 00:15 04:21 07:24 Glucose POC Glucose 132 H 160 H 162 H 02/25/24 07:39 Glucose 168 H POC Glucose OUTPATIENT ANTIDIABETIC REGIMEN: * Lantus 55 units SC qAM * Novolog 5 units SC TIDM * Jardiance 25 mg PO daily HbA1c: 8.5% (02/21/24) ASSESSMENT: 02/25/24: * Patient continues to experience N/V w/ minimal PO intake * Diet advanced today and carbs were documented for breakfast and lunch * Blood sugars remain reasonably well-controlled w/ fasting blood sugar trending up a bit today * Labs remain stable (anion gap of 12, serum bicarbonate 29) - continue to monitor * Intermittent IV fluids given (Plasmalyte 100 mL/hr x 5 hours at this time) 02/22 * Kannan received 21 units of insulin yesterday (20 were basal) * Fasting BSG this AM acceptable, continue current basal regimen. Diet advanced to clears, still having nausea and vomitting and not tolerating. * Correction factor correcting appropriately, unable to assess carbohydrate ratio at this time. 02/20 * TV is a 33 year old male with T1DM admitted for inpatient treatment of CAP and intractable nausea/vomiting * Anion gap of 12 on admission, but carbon dioxide 30 mmol/L, VBG pH of 7.38, and BSG of 212 mg/dL - no indication for insulin gtt at this time * Received 20 units of basal yesterday evening * Patient still vomiting today, remains NPO. May need to consider initiation of dextrose fluids to allow for adequate basal dosing in patient w/ T1DM. * Blood sugars have been reasonably well-controlled since time of admission. PLAN FOR INPATIENT GLYCEMIC CONTROL: * Hold outpatient oral diabetes medications * Basal insulin - increase * Lantus 25 units SC daily * Will follow dinnertime BSG and consider up to 15 additional units of basal today (~80% of home dose) * Bolus insulin * NovoLog per scale ACHS or Q4hrs while NPO * Goal Range: Low 110 mg/dL - High 140 mg/dL * Correction Factor: 15 mg/dL/unit * Nutritional / Prandial insulin per carb ratio of 1 unit per 5 grams CHO consumed
[2024-02-25] MEDS: PLASMA-LYTE A 500 ML IV SCH (11:09)
[2024-02-25] MEDS: INSULIN ASPART PER UNIT CHARGE SC SCH (12:20)
--- NOTE | 2024-02-25 14:01 | Gastroenterology Progress Note ---
Date of Service February 25, 2024 Assessment & Plan (1) Nausea & vomiting: Plan: Seems to be improving. Might want to try regular diet at some point. Discussed possibility of EGD Friday if symptoms persist Admission and Anticipated Discharge Date Admission Date: February 20, 2024 Subjective He seems better today. Vomited this morning when he woke up but none since. Ate lunch and "waiting for what ever happens now" Physical Exam Physical Exam: He looks well Results & Data Vital Signs (Past 12 Hours) Vital Signs Temp Pulse Pulse Resp BP BP Pulse Ox 02/25/24 11:14 36.8 C 64 18 170/98 H 95 02/25/24 07:48 65 02/25/24 07:25 36.8 C 83 18 148/95 H 94 02/25/24 03:24 36.6 C 68 18 121/73 92 O2 Del Method 02/25/24 11:14 Room Air 02/25/24 07:48 02/25/24 07:25 Room Air 02/25/24 03:24 Room Air
[2024-02-25 16:17] LABS: Hematocrit (blood only) 39.3 % (42.0-52.0); Hemoglobin 14.2 g/dl (14.0-18.0)
[2024-02-25 16:37] LABS: BUN Creatinine Ratio 20.8 (10-20); Calcium 8.8 mg/dl (8.6-10.3); Creatinine Clr Calc Pharmacy 185.2 ml/min; Potassium 3.5 mmol/L (3.5-5.1)
--- NOTE | 2024-02-26 06:58 | Hospitalist Progress Note ---
Date of Service February 26, 2024 Assessment & Plan (1) Pneumonia: (2) Nausea & vomiting: (3) Dyslipidemia: (4) Diabetes type 1, uncontrolled: Plan 1) Pneumonia - Resolved - Left lower lobe pneumonia. Community-acquired. S/p treatment with Ceftriax one + Azithromycin. - COVID-19, negative; BioFire Resp panel, cash-negative 2) Intractable nausea and vomiting. - CT-AP (w/ oral and IV contrast) without significant bowel pathology that would explain sx. - Promethazine PRN and Zofran PRN - seemingly no difference in sx with or without antiemetics, may take PRN if desired. - Regular diet, patient so far tolerating today. Continue to encourage PO fluid intake. Will observe overnight, if stable, likely discharge tomorrow. - Underlying process remains unclear - GI consulted, appreciate recs: - Pt would like to defer EGD at this time, potentially consider if vomiting recurs - Start daily Protonix - AM labs: CBC, BMP 4) Evolving DKA - Resolved - Continue monitoring of metabolic labs. 5) Diabetes mellitus type 1. - Twice daily Lantus as ordered as well as insulin sliding scale. 6) Hypertension. - Home meds resumed 7) History of dyslipidemia - held home meds, secondary to N/V, resume at time of discharge 8) Acute hypoxemic respiratory failure - Resolved: - SpO2 stable on room air. 9) Hypothyroidism - Home med resumed Code status: Full code Disposition: PCU-Tele VTE Prophylaxis: SCD's (to knee) FENGI: Regular Admission and Anticipated Discharge Date Admission Date: February 20, 2024 Supervising Physician Co-Signing Physician Notes Attending Physician Supervision Note: I independently interviewed and examined the patient and verified the rivas history and physical, reviewed labs and image studies and agree with findings and care plan noted above. Here for intractable nausea after being diagnosed with pneumonia and started on abx. Nausea improving but still not able to have proper meals. Only had 1/4 of sandwich. Fluid intake limited as well. vitals noted nad heent nc at mmm breathing unlabored no accessory muscles good effort skin no rashes no pallor or icterus neuro no focal deficits. Intractable nausea - Neg imaging. Likely due to the primary illness - pneumonia. -monitor overnight for improving PO intake and possibly d/c home in am. CAP - finished azithromycin and rocephin. DM1 - Pharmacy managing. Now on Lantus 35 units (on 70 units at home) DVT proph - ambulation otherwise as above Subjective Patient is a 33 yo M w/a PMHx of Type 1 diabetes, Class 1 obesity, ED, HTN, hypothyroidism, diabetic peripheral neuropathy who presented to the hospital w/ signs and symptoms concerning for pneumonia, along w/ intermittent N/V since Friday before Friday admission. Vomiting x3-4 times since yesterday. After diet advanced yesterday, patient attempted to eat some mashed potatoes and Sprite, subsequently vomited. Ate some applesauce this AM, so far staying down. No antiemetics in past 24H. Denies diarrhea, last BM last Friday but passing gas. Denies urinary sx. Denies fevers/chills. Denies SOB, minimal cough. Review of Systems Review of Systems: as per HPI Physical Exam Physical Exam: General: Alert and oriented. No acute distress Cardiac: Regular rate and rhythm, no murmurs appreciated Respiratory: Lungs clear to auscultation bilaterally, No increased work of breathing Abdominal: Soft, non-tender, non-distended. Bowel sounds present. Psych: mood affect congruence. Results & Data Results & Data Vital Signs (Past 12 Hours) Vital Signs Temp Pulse Resp BP BP Pulse Ox O2 Del Method 02/26/24 03:16 36.9 C 73 18 131/86 95 Room Air 02/26/24 00:13 Room Air 02/25/24 23:50 36.5 C 71 15 133/79 93 Room Air 02/25/24 20:08 36.7 C 69 18 157/89 H 97 Room Air Resident Activity Tracking Resident Involvement: Resident Care Provided Care Provided: Adult Hospital Medicine (1) Pneumonia Laterality: unspecified laterality Lung location: unspecified part of lung Pneumonia type: due to unspecified organism Qualified Code(s): J18.9 - Pneum onia, unspecified organism
[2024-02-26 08:06] LABS: Hematocrit (blood only) 42.5 % (42.0-52.0); Hemoglobin 14.7 g/dl (14.0-18.0); Mean Corpuscular Hemoglobin 28.5 pg (25.0-34.0); Mean Corpuscular Hgb Conc 34.6 g/dL (32.0-36.0); Mean Corpuscular Volume 82.4 fL (80.0-100.0); Mean Platelet Volume 9.3 fL (9.4-12.4); Platelet Count 508 K/uL (130-400); RDW Coefficient of Variation 12.3 % (11.5-14.5); RDW Standard Deviation 36.5 fL (36.4-46.3); Red Blood Count 5.16 M/uL (4.70-6.10); White Blood Count 12.07 K/ul (4.8-10.8)
[2024-02-26 08:16] LABS: BUN Creatinine Ratio 21.7 (10-20); Calcium 8.9 mg/dl (8.6-10.3); Creatinine Clr Calc Pharmacy 159.6 ml/min; Potassium 4.2 mmol/L (3.5-5.1)
[2024-02-26] MEDS: LANTUS PER UNIT CHARGE SC SCH (08:20)
[2024-02-26] MEDS: lisinopril 40 MG TAB PO SCH (09:31)
[2024-02-26] MEDS: LEVOTHYROXINE SODIUM 175 MCG TABLET PO SCH (09:31)
[2024-02-26] MEDS: PANTOprazole 40 MG TAB PO ONE (11:31)
--- NOTE | 2024-02-26 12:32 | Gastroenterology Progress Note ---
Date of Service February 26, 2024 Assessment & Plan (1) Nausea & vomiting: Plan: He says he is better. Able to tolerate solids. Wants to hold off on EGD tomorrow unless vomiting starts back up. I suspect it was related to his pneumonia. Admission and Anticipated Discharge Date Admission Date: February 20, 2024 Subjective He says he is better now. He ate breakfast without vomiting and has had some lunch without vomiting Physical Exam Physical Exam: He looks well Results & Data Vital Signs (Past 12 Hours) Vital Signs Temp Pulse Pulse Resp BP BP Pulse Ox 02/26/24 10:23 36.5 C 81 19 159/81 H 97 02/26/24 08:00 02/26/24 08:00 65 02/26/24 08:00 36.5 C 70 16 152/94 H 95 02/26/24 03:16 36.9 C 73 18 131/86 95 O2 Del Method 02/26/24 10:23 Room Air 02/26/24 08:00 Room Air 02/26/24 08:00 02/26/24 08:00 Room Air 02/26/24 03:16 Room Air
--- NOTE | 2024-02-26 13:05 | XRay Report ---
KUB HISTORY: Acute generalized abdominal pain r/o SBO/obstructive gas pattern COMPARISON: CT 02/22/2024 FINDINGS: Nonobstructive bowel gas pattern. Enteric contrast within the colon. Calcifications of the vas deferens. No renal calculi. No ureteral calculi. No pneumoperitoneum or pneumatosis. No fracture . IMPRESSION: Nonobstructive bowel gas pattern. ACT 112: Negative or not required by law. The above report was generated using voice recognition software. It may contain grammatical, syntax o r spelling errors. Electronically signed by: Ney Velasquez M.D. 02/26/2024 1:04 PM
--- NOTE | 2024-02-27 07:11 | Hospitalist Progress Note ---
Date of Service February 27, 2024 Assessment & Plan (1) Pneumonia: (2) Nausea & vomiting: (3) Dyslipidemia: (4) Diabetes type 1, uncontrolled: Plan 1) Pneumonia - Resolved - Left lower lobe pneumonia. Community-acquired. S/p treatment with Ceftriax one + Azithromycin. - COVID-19, negative; BioFire Resp panel, cash-negative 2) Intractable nausea and vomiting. - CT-AP (w/ oral and IV contrast) without significant bowel pathology that would explain sx. - Promethazine PRN and Zofran PRN - seemingly no difference in sx with or without antiemetics, may take PRN if desired. - Resume regular diet. - Underlying process remains unclear - GI consulted, appreciate recs: - EGD with the following findings: - LA Grade D reflux esophagitis with no bleeding. - Normal stomach. - Normal examined duodenum. - No specimens collected. - Continue daily Protonix - Possible discharge tonight, otherwise hopefully tomorrow - Appreciate CM assistance with setting up outpatient GI follow up - AM labs: CBC, BMP 4) Evolving DKA - Resolved - Continue monitoring of metabolic labs. 5) Diabetes mellitus type 1. - Twice daily Lantus as ordered as well as insulin sliding scale. 6) Hypertension. - Continue home meds 7) History of dyslipidemia - held home meds, secondary to N/V, resume at time of discharge 8) Acute hypoxemic respiratory failure - Resolved: - SpO2 stable on room air. 9) Hypothyroidism - Continue home med Code status: Full code Disposition: PCU-Tele VTE Prophylaxis: SCD's (to knee) FENGI: regular diet Admission and Anticipated Discharge Date Admission Date: February 20, 2024 Subjective Patient is a 33 yo M w/a PMHx of Type 1 diabetes, Class 1 obesity, ED, HTN, hypothyroidism, diabetic peripheral neuropathy who presented to the hospital w/ signs and symptoms concerning for pneumonia, along w/ intermittent N/V since Friday before Friday admission. Vomiting last night and again this morning - over the day yesterday, ate some mashed potatoes, applesauce, 1/4 sandwich. No antiemetics over past 2 days. Denies diarrhea, last BM last Friday but passing gas. Denies urinary sx. Denies fevers/chills. Denies SOB, minimal cough. Review of Systems Review of Systems: as per HPI Physical Exam Physical Exam: General: Alert and oriented. No acute distress Cardiac: Regular rate and rhythm, no murmurs appreciated Respiratory: Lungs clear to auscultation bilaterally, No increased work of breathing Abdominal: Soft, non-tender, non-distended. Bowel sounds present. Psych: mood affect congruence. Results & Data Results & Data Vital Signs (Past 12 Hours) Vital Signs Temp Pulse Pulse Resp BP BP Pulse Ox 02/27/24 02:57 36.9 C 73 18 115/75 92 02/26/24 23:19 36.8 C 74 18 129/79 92 02/26/24 21:53 65 02/26/24 20:48 02/26/24 19:32 36.5 C 63 18 147/68 H 97 O2 Del Method 02/27/24 02:57 Room Air 02/26/24 23:19 Room Air 02/26/24 21:53 02/26/24 20:48 Room Air 02/26/24 19:32 Room Air Resident Activity Tracking Resident Involvement: Resident Care Provided Care Provided: Adult Hospital Medicine (1) Pneumonia Laterality: unspecified laterality Lung location: unspecified part of lung Pneumonia type: due to unspecified organism Qualified Code(s): J18.9 - Pne umonia, unspecified organism
--- NOTE | 2024-02-27 07:31 | Pharmacy Report ---
Pharmacy Glycemic Short Note 2 - Date of Service February 27, 2024 - Glycemic Short BSG Results (Last 24 hours): 02/26/24 02/26/24 02/26/24 07:39 11:37 16:28 Glucose 221 H POC Glucose 183 H 149 H 02/26/24 02/27/24 20:06 07:08 Glucose POC Glucose 142 H 139 H OUTPATIENT ANTIDIABETIC REGIMEN: * Lantus 55 units SC qAM * Novolog 5 units SC TIDM * Jardiance 25 mg PO daily HbA1c: 8.5% (02/21/24) ASSESSMENT: 02/27/24: * Blood sugars trended down throughout the day yesterday, 205 -> 183 -> 149 -> 142 mg/dL w/ fasting blood sugar of 139 mg/dL this morning * Received 50 units of insulin (35 units of basal and 15 units of prandial/correctional bolus) * Diet has been advanced and patient appears to be better tolerating PO intake * Basal insulin increased yesterday. Will continue current dose given significant improvement in fasting blood sugar. * Patient made NPO mid-morning for possible EGD. Discussed w/ provider. May need to initiate D5W if blood sugars begin to trend down and NPO may be prolonged. 02/25/24: * Patient continues to experience N/V w/ minimal PO intake * Diet advanced today and carbs were documented for breakfast and lunch * Blood sugars remain reasonably well-controlled w/ fasting blood sugar trending up a bit today * Labs remain stable (anion gap of 12, serum bicarbonate 29) - continue to monitor * Intermittent IV fluids given (Plasmalyte 100 mL/hr x 5 hours at this time) 02/22 * Kannan received 21 units of insulin yesterday (20 were basal) * Fasting BSG this AM acceptable, continue current basal regimen. Diet advanced to clears, still having nausea and vomitting and not tolerating. * Correction factor correcting appropriately, unable to assess carbohydrate ratio at this time. 02/20 * TV is a 33 year old male with T1DM admitted for inpatient treatment of CAP and intractable nausea/vomiting * Anion gap of 12 on admission, but carbon dioxide 30 mmol/L, VBG pH of 7.38, and BSG of 212 mg/dL - no indication for insulin gtt at this time * Received 20 units of basal yesterday evening * Patient still vomiting today, remains NPO. May need to consider initiation of dextrose fluids to allow for adequate basal dosing in patient w/ T1DM. * Blood sugars have been reasonably well-controlled since time of admission. PLAN FOR INPATIENT GLYCEMIC CONTROL: * Hold outpatient oral diabetes medications * Basal insulin * Lantus 35 units SC daily * Reassess in AM * Bolus insulin * NovoLog per scale ACHS or Q4hrs while NPO * Goal Range: Low 110 mg/dL - High 140 mg/dL * Correction Factor: 20 mg/dL/unit * Nutritional / Prandial insulin per carb ratio of 1 unit per 5 grams CHO consumed
[2024-02-27] MEDS: PANTOprazole 40 MG TAB PO SCH (07:32)
[2024-02-27 08:13] LABS: Calcium 9.2 mg/dl (8.6-10.3); Potassium 3.8 mmol/L (3.5-5.1)
[2024-02-27 08:17] LABS: Hematocrit (blood only) 43.2 % (42.0-52.0); Hemoglobin 15.8 g/dl (14.0-18.0); Mean Corpuscular Hemoglobin 29.8 pg (25.0-34.0); Mean Corpuscular Hgb Conc 36.6 g/dL (32.0-36.0); Mean Corpuscular Volume 81.5 fL (80.0-100.0); Mean Platelet Volume 9.6 fL (9.4-12.4); Platelet Count 543 K/uL (130-400); RDW Coefficient of Variation 12.3 % (11.5-14.5); White Blood Count 11.29 K/ul (4.8-10.8)
[2024-02-27 08:18] LABS: BUN Creatinine Ratio 24.6 (10-20); Creatinine Clr Calc Pharmacy 191.6 ml/min
[2024-02-27] MEDS ORDERED: Nursing to Pharmacy Communication SCH (10:45)
[2024-02-27] MEDS: INSULIN ASPART PER UNIT CHARGE SC SCH (11:58)
--- NOTE | 2024-02-27 13:16 | Anesthesiology Consultation ---
Date of Service February 27, 2024 Assessment & Plan (1) Encounter for pre-operative examination: Chart Review Chart Review: Acceptable Risk for Surgery, Patient NOT seen in Pre Admission Testing and entry level staff accountant initiated Consults Requested none Proposed Anesthesia Anesthesia Type: MAC History Surgery Operation Date: 02/27/24 18:20 Proposed Procedures p Esophagogastroduodenoscopy Dr. Storm - Rosa Storm Jr, MD Height/Weight Height: 6 ft Weight: 108.1 kg Allergies Allergy/AdvReac Type Severity Reaction Status Date / Time No Known Allergies Allergy Verified 02/19/24 10:38 Medications Home Medications Medication Instructions Recorded Confirmed Last Taken pen needle, diabetic 32 gauge x #100 ea 05/14/21 02/19/24 Unknown " (BD Ultra-Fine Kayla Pen Needle) ergocalciferol (vitamin D2) 1,250 50,000 unit PO 3XWK #12 caps 05/15/23 02/20/24 Unknown mcg (50,000 unit) capsule atorvastatin 20 mg tablet 20 mg PO QPM #30 tabs 07/16/23 02/20/24 Unknown levothyroxine 175 mcg tablet 175 mcg PO DAILY #30 tabs 07/16/23 02/20/24 Unknown Dexcom G7 Sensor (blood-glucose #3 ea 08/06/23 02/19/24 Unknown sensor) blood sugar diagnostic (FreeStyle #100 ea 08/11/23 02/19/24 Unknown Lite Strips) insulin glargine 100 unit/mL (3 50 unit (0.5 mL) subcut QAM #15 mL 10/02/23 02/20/24 Unknown mL) subcutaneous pen (Lantus Solostar U-100 Insulin) empagliflozin 25 mg tablet 25 mg PO DAILY #30 tabs 10/13/23 02/20/24 Unknown (Jardiance) insulin pump cart,automated,BT #15 ea 11/06/23 02/19/24 Unknown (Omnipod 5 G6 Pods (Gen 5) subcutaneous cartridge) insulin pump cartridge,automated #1 ea 11/06/23 02/19/24 Unknown dose,BT with controller subcutaneous (Omnipod 5 G6 Intro Kit (Gen 5) subcutaneous cartridge with controller) lisinopril 40 mg tablet 40 mg PO DAILY #30 tabs 12/25/23 02/20/24 Unknown insulin aspart U-100 100 unit/mL See Rx Instructions .Route 01/19/24 02/20/24 Unknown (3 mL) subcutaneous pen (Novolog .COMPLEX #30 mL FlexPen U-100 Insulin aspart) acetone (urine) test (Ketone Urine #100 ea 02/05/24 02/19/24 Unknown Test strips) insulin aspart U-100 100 unit/mL 70 unit (0.7 mL) continuous 02/05/24 02/20/24 Unknown subcutaneous solution (Novolog subcutaneous infusion DAILY #30 mL U-100 Insulin aspart) amoxicillin 875 mg-potassium 1 tab PO BID 5 days #10 tabs 02/19/24 02/20/24 Unknown clavulanate 125 mg tablet azithromycin 250 mg tablet See Rx Instructions PO .COMPLEX #6 02/19/24 02/20/24 Unknown tabs pantoprazole 40 mg tablet,delayed 40 mg PO DAILY 4 weeks #28 tabs 02/26/24 Unknown release Active Medications Generic Name Dose Route Start Last Admin Trade Name Freq PRN Reason Stop Dose Admin Prochlorperazine 5 mg/ Syringe 5 mls @ 5 mls/min 02/24/24 21:04 02/24/24 21:43 IV 03/25/24 21:03 5 mls/min Q6H PRN Administration Nausea And Vomiting Insulin Aspart 0 units 02/27/24 12:00 02/27/24 11:58 Insulin Aspart Per Unit Charge SC 03/26/24 11:29 1 units Q6 EDUARD Administration Levothyroxine Sodium 175 mcg 02/26/24 09:00 02/27/24 07:32 Levothyroxine Sodium 175 Mcg Tablet PO 03/27/24 08:59 175 mcg DAILY EDUARD Administration Lisinopril 40 mg 02/26/24 09:00 02/27/24 07:32 Lisinopril 40 Mg Tab PO 03/27/24 08:59 40 mg DAILY EDUARD Administration Ondansetron HCl 4 mg 02/24/24 08:38 02/24/24 16:28 Ondansetron Inj 2 Mg/Ml 2 Ml Vial IV 03/25/24 08:37 4 mg Q4H PRN Administration Nausea Pantoprazole Sodium 40 mg 02/27/24 09:00 02/27/24 07:32 Pantoprazole 40 Mg Tab PO 03/28/24 08:59 40 mg QAM EDUARD Administration Promethazine HCl 25 mg 02/22/24 13:08 02/22/24 14:09 Promethazine Hcl Inj 25 Mg/Ml 1 Ml Vial IM 03/22/24 15:11 25 mg Q8 PRN Administration Nausea And Vomiting Past Medical History Medical History History of COVID-19 04-04-20 TESTED + ([facility]) "TESTED FOR WORK PROTOCOL" DM type 1 (diabetes mellitus, type 1) HTN (hypertension) Leg wound, left Elias's thyroiditis Neurodermatitis Past Family History Family History Grandfather Diabetes Aunt Diabetes Other No family history of adverse response to anesthesia Denies family history of Ovarian cancer Prostate cancer Myocardial infarction Breast cancer Lung cancer Colorectal cancer Stroke Past Surgical History Surgical History Nausea and vomiting after administration of anesthetic agent History of vitrectomy LEFT History of wisdom tooth extraction Social History Smoking Status: Never smoker Do You Dip or Chew Tobacco: No Hx Alcohol Use: Yes Alcohol type: beer alcohol intake frequency: holidays/special occasions only Hx Substance Use: No substance use type: does not use Physical Exam Vital Signs Last Vital Signs Temp 36.6 C 02/27/24 11:16 Pulse 88 02/27/24 11:16 Resp 18 02/27/24 11:16 BP 119/72 02/27/24 11:16 Pulse Ox 96 02/27/24 11:16 O2 Del Method Room Air 02/27/24 11:16 O2 Flow Rate 2 02/20/24 18:15 Testing Laboratory Results 02/27/24 07:36 02/27/24 07:36 PT 10.5 Seconds (9.0-12.0) 02/20/24 13:07 INR 1.0 (0.9-1.1) 02/20/24 13:07 APTT 31 Seconds (21-31) 02/20/24 13:07 Hemoglobin A1c 8.5 % (4.5-5.6) H 02/21/24 06:31 Urine Color Dark Yellow 02/21/24 Unknown Urine Appearance Clear (Clear) 02/21/24 Unknown Urine pH 6.0 (4.5-7.5) 02/21/24 Unknown Ur Specific Gary 1.035 (1.000-1.030) H 02/21/24 Unknown Urine Protein 4+ (Negative) H 02/21/24 Unknown Urine Glucose (UA) 3+ (Negative) H 02/21/24 Unknown Urine Ketones 2+ (Negative) H 02/21/24 Unknown Urine Nitrite Negative (Negative) 02/21/24 Unknown Ur Leukocyte Esterase Negative (Negative) 02/21/24 Unknown Urine WBC (Auto) 0-5 /hpf (0-5) 02/21/24 Unknown Urine RBC (Auto) 0-2 /hpf (0-2) 02/21/24 Unknown U Hyaline Cast (Auto) 3-5 /lpf (0-2) H 02/21/24 Unknown U Epithel Cells (Auto) 0-2 /hpf (0-2) 02/21/24 Unknown Urine Bacteria (Auto) None Seen (None Seen) 02/21/24 Unknown 02/20/24 14:02 Aerobic Blood Culture - Final Blood No growth in Aerobic bottle after 5 days. Anaerobic Blood Culture - Final No growth in Anaerobic bottle after 5 days. 02/20/24 13:07 Aerobic Blood Culture - Final Blood No growth in Aerobic bottle after 5 days. Anaerobic Blood Culture - Final 02/23/24 05:20 Urine Culture - Final Urine,Clean Catch No growth - less than 1,000 colonies/mL. 02/27/24 02/27/24 11:45 07:08 POC Glucose 157 H 139 H Electrocardiogram Date: 02/20/24 Test Reason : Blood Pressure : */* mmHG Vent. Rate : 78 BPM Atrial Rate : 78 BPM P-R Int : 172 ms QRS Dur : 118 ms QT Int : 398 ms P-R-T Axes : 38 37 37 degrees QTcB Int : 453 ms Normal sinus rhythm Non-specific intra-ventricular conduction delay Borderline ECG When compared with ECG of 20-Feb-2024 01:31, (unconfirmed) No significant change was found Confirmed by Leno Teran ([id number]) on 02/20/2024 3:02:15 PM Chest X-Ray Date: 02/19/24 TWO VIEW CHEST CLINICAL HISTORY: Other specified symptoms and signs involving the circulatory and respiratory systems. FINDINGS: PA and lateral chest radiographs are compared to study dated 06/02/2022. The cardiomediastinal silhouette is unremarkable. Airspace consolidation is seen at the left lung base. The right lung appears clear. No pleural effusion is seen. There is no pneumothorax. The bony thorax appears intact. IMPRESSION: Airspace consolidation at the left lung base is typical for pneumonia. Clinical correlation will be required and radiographic follow-up to resolution is recommended. Echocardiogram Date: 02/20/24 EF: 55-60 LV Function: normal RWMA: + none
[2024-02-27 14:09] VITALS: RESP 16
--- NOTE | 2024-02-27 16:17 | History & Physical Report ---
Date of Service February 27, 2024 Assessment & Plan (1) Encounter for pre-operative examination: Plan: 33 year old man with vomiting. Procedure and risks for EGD discussed. He agrees Admission and Anticipated Discharge Date Admission Date: February 20, 2024 History of Present Illness Chief Complaint: vomiting Primary Care Provider: Zaynab Gomez MD 33 year old man with persistent vomiting Allergies Allergy/AdvReac Type Severity Reaction Status Date / Time No Known Allergies Allergy Verified 02/27/24 14:04 Home Medications Medication Instructions Recorded Confirmed Type pen needle, diabetic 32 gauge x #100 ea 05/14/21 02/19/24 Rx 5/32" (BD Ultra-Fine Kayla Pen Needle) ergocalciferol (vitamin D2) 1,250 50,000 unit PO 3XWK #12 caps 05/15/23 02/20/24 Rx mcg (50,000 unit) capsule atorvastatin 20 mg tablet 20 mg PO QPM #30 tabs 07/16/23 02/20/24 Rx levothyroxine 175 mcg tablet 175 mcg PO DAILY #30 tabs 07/16/23 02/20/24 Rx Dexcom G7 Sensor (blood-glucose #3 ea 08/06/23 02/19/24 Rx sensor) blood sugar diagnostic (FreeStyle #100 ea 08/11/23 02/19/24 Rx Lite Strips) insulin glargine 100 unit/mL (3 50 unit (0.5 mL) subcut QAM #15 mL 10/02/23 02/20/24 Rx mL) subcutaneous pen (Lantus Solostar U-100 Insulin) empagliflozin 25 mg tablet 25 mg PO DAILY #30 tabs 10/13/23 02/20/24 Rx (Jardiance) insulin pump cart,automated,BT #15 ea 11/06/23 02/19/24 Rx (Omnipod 5 G6 Pods (Gen 5) subcutaneous cartridge) insulin pump cartridge,automated #1 ea 11/06/23 02/19/24 Rx dose,BT with controller subcutaneous (Omnipod 5 G6 Intro Kit (Gen 5) subcutaneous cartridge with controller) lisinopril 40 mg tablet 40 mg PO DAILY #30 tabs 12/25/23 02/20/24 Rx insulin aspart U-100 100 unit/mL See Rx Instructions .Route 01/19/24 02/20/24 Rx (3 mL) subcutaneous pen (Novolog .COMPLEX #30 mL FlexPen U-100 Insulin aspart) acetone (urine) test (Ketone Urine #100 ea 02/05/24 02/19/24 Rx Test strips) insulin aspart U-100 100 unit/mL 70 unit (0.7 mL) continuous 02/05/24 02/20/24 Rx subcutaneous solution (Novolog subcutaneous infusion DAILY #30 mL U-100 Insulin aspart) amoxicillin 875 mg-potassium 1 tab PO BID 5 days #10 tabs 02/19/24 02/20/24 Rx clavulanate 125 mg tablet azithromycin 250 mg tablet See Rx Instructions PO .COMPLEX #6 02/19/24 02/20/24 Rx tabs pantoprazole 40 mg tablet,delayed 40 mg PO DAILY 4 weeks #28 tabs 02/26/24 Rx release Past Med/Surg History Problem List (Updated 02/27/24 @ 13:18 by Kirt Mercedes MD) Encounter for pre-operative examination Pneumonia (Acute) Hypoxia (Acute) Hyperglycemia (Acute) Pneumonia (Acute) Nausea & vomiting (Acute) Health care maintenance COVID-19 (Acute) Dyslipidemia Diabetes type 1, uncontrolled Uncontrolled type 1 diabetes mellitus with circulatory complication Proliferative diabetic retinopathy associated with type 1 diabetes mellitus Albuminuria Diabetic peripheral neuropathy associated with type 1 diabetes mellitus Diabetic nephropathy associated with type 1 diabetes mellitus Obesity (BMI 30.0-34.9) Erectile dysfunction Hypertension Hypothyroidism Medical History History of COVID-19 04-04-20 TESTED + ([facility]) "TESTED FOR WORK PROTOCOL" DM type 1 (diabetes mellitus, type 1) HTN (hypertension) Leg wound, left Elias's thyroiditis Neurodermatitis Surgical History Nausea and vomiting after administration of anesthetic agent History of vitrectomy LEFT History of wisdom tooth extraction Family History Grandfather Diabetes Aunt Diabetes Other No family history of adverse response to anesthesia Denies family history of Ovarian cancer Prostate cancer Myocardial infarction Breast cancer Lung cancer Colorectal cancer Stroke Social History Smoking Status: Never smoker Second Hand Exposure: No; Do You Dip or Chew Tobacco: No; Hx Alcohol Use: Yes Alcohol type: beer Hx Substance Use: No Preferred Language: Uzbek Communication Ability: Effective Visual Impairment: Limited Hearing Ability: Normal Concrete Worker Required: No Beliefs That Will Affect Care: None marital status: Current Living Situation: Parent current occupational status: employed 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 Safe at Home: Yes Childhood Exposure to Second-Hand Smoke: No Assistive Devices: None Physical Exam Respiratory: normal respiratory effort, lungs clear to auscultation Cardiovascular: RRR, no murmur, no edema Gastrointestinal (Abdomen): normal bowel sounds, soft, nontender, no hepatosplenomegaly ASA Classification ASA ASA2 Results & Data Vital Signs (Past 12 Hours) Vital Signs Temp Pulse Pulse Resp BP Pulse Ox O2 Del Method 02/27/24 14:17 65 02/27/24 14:05 36 C L 71 16 147/94 H 97 Room Air 02/27/24 11:16 36.6 C 88 18 119/72 96 Room Air 02/27/24 08:00 61 02/27/24 07:14 36.8 C 70 16 150/93 H 95 Room Air Code Status & VTE Plan VTE Prophylaxis Plan VTE Prophylaxis will be ordered: Yes
[2024-02-27] MEDS: SODIUM CHLORIDE 0.9% 500 ML IV SCH (16:59)
--- NOTE | 2024-02-27 17:11 | GI REPORT ---
[facility] Patient: ESME PATEL : 1990 Sex at : Male Age: 33 Years Procedure: Upper GI endoscopy Date: 02/27/2024 Attending Physician: Rosa Storm MD Referring MD: Lucila Sherman Indications: - Persistent unexplained vomiting with nausea Medications: - Monitored Anesthesia Care - Propofol per Anesthesia - See the Anesthesia note for documentation of the administered medications Complications: - No immediate complications. Estimated Blood Loss: - Estimated blood loss: None. Procedure: - ASA Grade Assessment: II - A patient with mild systemic disease. - The egd scope was introduced through the mouth and advanced to the second part of the duodenum. - The upper GI endoscopy was accomplished without difficulty. - The patient tolerated the procedure well. Findings: - LA Grade D (one or more mucosal breaks involving at least 75% of esophageal circumference) esophagitis with no bleeding was found in the middle and lower thirds of the esophagus. - The entire examined stomach was normal. - The examined duodenum was normal. Impression: - LA Grade D reflux esophagitis with no bleeding. - Normal stomach. - Normal examined duodenum. - No specimens collected. Recommendation: - Return patient to [facility] for ongoing care. Procedure Code(s): - 13721, Esophagogastroduodenoscopy, flexible, transoral; diagnostic, including collection of specimen(s) by brushing or washing, when performed (separate procedure) Diagnosis Code(s): - R11.2, Nausea with vomiting, unspecified - K21.00, Gastro-esophageal reflux disease with esophagitis, without bleeding CPT(R) - 2023 copyright [employer]. All Rights Reserved. The CPT codes, CCI edits and ICD codes generated are intended as suggestions and were generated based on input data. These codes are preliminary and upon code official review may be revised to meet current compliance and payer requirements. The provider is responsible for the final determination of appropriate codes, and modifiers. Dr. Rosa Storm MD This document has been electronically signed. Note Initiated:02/27/2024 Note Completed:02/27/2024 5:10 PM [id number]
[2024-02-27] MEDS ORDERED: LIDOCAINE 2% 2 ML VIAL/AMP(20MG/ML) INFIL ONE (17:16)
[2024-02-27] MEDS ORDERED: PROPOFOL IV EMULSION 10 MG/ML 20 ML VIAL IV ONE (17:16)
--- NOTE | 2024-02-27 17:26 | Anesthesiology Progress Note ---
Date of Service February 27, 2024 Anesthesia Post Procedure Vital Signs Vital Signs: Temp Pulse Pulse Resp BP BP Pulse Ox 02/27/24 17:09 91 H 16 138/87 97 02/27/24 14:17 65 02/27/24 14:05 36 C L 71 16 147/94 H 97 02/27/24 11:16 36.6 C 88 18 119/72 96 02/27/24 08:00 61 02/27/24 07:14 36.8 C 70 16 150/93 H 95 02/27/24 02:57 36.9 C 73 18 115/75 92 02/26/24 23:19 36.8 C 74 18 129/79 92 02/26/24 21:53 65 02/26/24 20:48 02/26/24 19:32 36.5 C 63 18 147/68 H 97 O2 Del Method 02/27/24 17:09 Room Air 02/27/24 14:17 02/27/24 14:05 Room Air 02/27/24 11:16 Room Air 02/27/24 08:00 02/27/24 07:14 Room Air 02/27/24 02:57 Room Air 02/26/24 23:19 Room Air 02/26/24 21:53 02/26/24 20:48 Room Air 02/26/24 19:32 Room Air Transfer of Care Handoff Completed per policy Notes Mental Status: alert / awake / arousable Patient Amnestic to Procedure: Yes Nausea / Vomiting: adequately controlled Pain: adequately controlled Airway Patency, RR, SpO2: stable & adequate BP & HR: stable & adequate Hydration State: stable & adequate Anesthetic Complications: no major complications apparent
--- NOTE | 2024-02-27 17:27 | Communication Note ---
Date of Service: February 27, 2024 EGD shows severe esophagitis--either cause of symptoms with free reflux or result of vomiting. Would treat adam with bid PPI and see how he does.
[2024-02-27 17:35] VITALS: PULSE 78; TEMP 98.1; O2SAT 96
--- NOTE | 2024-02-27 17:37 | Discharge Summary ---
Date of Service February 27, 2024 Admission HPI Per Admitting Provider 33 year old man with persistent vomiting Admission Exam Per Admitting Provider In General: In general this is a 33-year-old male who is ill-appearing he said active emesis at the bedside. He is accompanied by his mother whom he grants permission to be in the room during my evaluation. He voices some consternation about being reswabbed for COVID per my recommendation. He apparently had an outpatient swab yesterday was negative the ER swab here was negative as well yesterday however the patient is hypoxic with not a very significant pneumonia on chest x-ray. 1 to be sure he has not converted to COVID positivity. This was explained to him. He then voiced understanding. HEENT: Normocephalic atraumatic pupils are equal round and reactive to light bilaterally. No scleral icterus no conjunctival injection external auditory canals are patent septum is in the midline nose is without discharge oral mucosa is pink and dry without lesion. NECK: Supple no rigidity no lymphadenopathy no thyromegaly no carotid bruits no JVD no masses. HEART: Regular rate and rhythm I do not appreciate any ectopy or rub. No murmur. LUNGS: Globally diminished. Some scattered rhonchi in the lower lung crocker. No toyn wheezes. ABDOMEN: Soft nontender, no rebound, no peritoneal signs, hyperactive bowel sounds, no appreciable organomegaly. EXTREMITIES: Intact, no peripheral cyanosis, clubbing or edema. Strength is 5 out of 5 in extremities x4 NEUROLOGICAL: Cranial nerves II through XII are grossly intact with no focal deficit elicited upon examination. No tremor. Principal Diagnosis Intractable vomiting Discharge Exam General: Alert and oriented. No acute distress Cardiac: Regular rate and rhythm, no murmurs appreciated Respiratory: Lungs clear to auscultation bilaterally, No increased work of breathing Abdominal: Soft, non-tender, non-distended. Bowel sounds present. Psych: mood affect congruence. Discharge Data Allergies Allergy/AdvReac Type Severity Reaction Status Date / Time No Known Allergies Allergy Verified 02/27/24 14:04 Consultations 02/20/24 14:07 ED Decision to Admit Stat 02/24/24 09:03 Consult Gastroenterology Routine Procedures Performed Operation Date: 02/27/24 18:20 Actual Procedures p Esophagogastroduodenoscopy - Rosa Storm Jr, MD Ordered Studies 02/22/24 12:24 CT abd pelvis oral and IV con Urgent Hospital Course (1) Pneumonia: (2) Nausea & vomiting: (3) Dyslipidemia: (4) Diabetes type 1, uncontrolled: Plan 1) Pneumonia - Resolved - Left lower lobe pneumonia. Community-acquired. S/p treatment with Ceftriaxone + Azithromycin. - COVID-19, negative; [employer] Resp panel, cash-negative 2) Intractable nausea and vomiting. - CT-AP (w/ oral and IV contrast) without significant bowel pathology that would explain sx. - Trialed Promethazine PRN and Zofran PRN - seemingly no difference in sx with or without antiemetics - Regular diet as tolerated upon discharge - Underlying process remains unclear - GI consulted: - EGD with the following findings: - LA Grade D reflux esophagitis with no bleeding. - Normal stomach. - Normal examined duodenum. - No specimens collected. - Increase Pantoprazole to 40mg PO BID - Appreciate CM assistance with setting up outpatient GI appointment 3) Diabetes mellitus type 1. - Titrate up the insulin to home dose once PO intake improves. 5) Acute hypoxemic respiratory failure - Resolved: - SpO2 stable on room air. Total Time Total Time Spent Total Time Spent (In Minutes): see attending attestation Discharge Plan Discharge Items Patient Disposition: Home - Self-Care Reason For Visit: PNA, N/V Discharge Diagnosis: Intractable vomiting Activity: As commented below Activity Comment: activity progression as tolerated Non-emergency contact: Primary Care Provider Call non-emergency contact if: you have any medication questions and your symptoms worsen Follow-up/Referrals: Zaynab Gomez MD [Primary Care Provider] - Diet: Carb Count or DM1 Addtl Attending Provider Instructions: You were admitted to the hospital with pneumonia and persistent vomiting. During your hospitalization, you were treated with a full course of antibiotics for your pneumonia; you do not require further antibiotics upon discharge. The reason for your vomiting remains unclear but fortunately seems to be improving. Lab work and a CT scan do not offer an explanation for your symptoms. An upper endoscopy showed reflux esophagitis. For this, you were started on an acid-reducing medication called Pantoprazole while hospitalized - we recommend continuing this medication following discharge. A prescription for this medication has been sent to your pharmacy - please take 1 tablet twice daily. No other changes were made to your home medications, please continue to take them as previously directed. Please follow up with your PCP as soon as possible. Our case management team is also working to set you up with outpatient GI - you should receive a call from scheduling regarding an appointment. Pending Studies at Discharge: No Stand-Alone Forms: [facility], Smoking Cessation Medications and DC Order Prescriptions: New pantoprazole 40 mg Tablet,Delayed Release (Dr/Ec) 40 mg PO BID 30 Days Qty: 60 0RF Continued (DME) pen needle, diabetic [BD Ultra-Fine Kayla Pen Needle] 32 gauge x 5/32" needle See Rx Instructions miscellaneous .MEDSUPPLY Qty: 100 5RF Rx Instructions: Change 4x a day ergocalciferol (vitamin D2) 1,250 mcg (50,000 unit) capsule 50,000 unit PO 3XWK Qty: 12 3RF Rx Instructions: 58413 units PO three times weekly; TAKE THIS MEDICATION EVERY FRIDAY,FRIDAY AND FRIDAY atorvastatin 20 mg tablet 20 mg PO QPM Qty: 30 5RF levothyroxine 175 mcg tablet 175 mcg PO DAILY Qty: 30 6RF (DME) Dexcom G7 Sensor Device See Rx Instructions .Route Qty: 3 11RF Rx Instructions: Change sensor every 10 days insulin glargine [Lantus Solostar U-100 Insulin] 100 unit/mL (3 mL) insulin pen 50 unit subcut QAM Qty: 15 5RF Jardiance 25 mg tablet 25 mg PO DAILY Qty: 30 5RF lisinopril 40 mg tablet 40 mg PO DAILY Qty: 30 2RF insulin aspart U-100 [Novolog FlexPen U-100 Insulin] 100 unit/mL (3 mL) insulin pen See Rx Instructions .ROUTE .COMPLEX Qty: 30 5RF Rx Instructions: Up to 60 units/day as directed with meals and to correct high blood sugars insulin aspart U-100 [Novolog U-100 Insulin aspart] 100 unit/mL solution 70 unit continuous subcutaneous infusion DAILY Qty: 30 3RF Rx Instructions: hasnt started with pump for use in insulin pump; use up to 70 units daily (DME) Ketone Urine Test Strip See Rx Instructions .ROUTE .MEDSUPPLY Qty: 100 5RF Rx Instructions: check urine every 2 hours with hyperglycemia (DME) Omnipod 5 G6 Intro Kit (Gen 5) Cartridge See Rx Instructions .ROUTE .MEDSUPPLY Qty: 1 0RF Rx Instructions: Change pod every 2 days (DME) Omnipod 5 G6 Pods (Gen 5) Cartridge See Rx Instructions .ROUTE .MEDSUPPLY Qty: 15 11RF Rx Instructions: Change every 2 days (DME) FreeStyle Lite Strips Strip See Rx Instructions .ROUTE .MEDSUPPLY Qty: 100 3RF Rx Instructions: testing 1 X daily Discontinued amoxicillin-pot clavulanate 875-125 mg tablet 1 tab PO BID 5 Days Qty: 10 0RF azithromycin 250 mg tablet See Rx Instructions PO .COMPLEX Qty: 6 0RF Rx Instructions: For 250 mg dose pack: take 500 mg today (day 1), then 250 mg for 4 days (days 2-5) PO Discharge Orders: Discharge Order (Routine); Ordered 02/27/24 Ordered By: Nacho Velarde/Other Patient Handouts: Managing Type 1 Diabetes Admission Data Admit Date/Time: 02/20/24 14:58 Attending Provider: Lucila Sherman Admit Provider: Lenin Bhardwaj Primary Care Provider: Zaynab Gomez V. Other Providers: Lenin Bhardwaj; Brett Reddy; Rosa Storm Other Interventions: Discharge Summary Assessment (RN) Last Done: 02/27/24 17:49 Supervising Physician Co-Signing Physician Notes Attending Physician Supervision Note: I independently interviewed and examined the patient and verified the rivas history and physical, reviewed labs and image studies and agree with findings and care plan noted above. Here for intractable nausea after being diagnosed with pneumonia and started on abx. Nausea improving through the hospital stay but still not able to have proper meals. Underwent EGD. vitals noted nad heent nc at mmm breathing unlabored no accessory muscles good effort skin no rashes no pallor or icterus neuro no focal deficits. Intractable nausea - Neg imaging. -EGD done - severe esophagitis - from reflux or vomiting. -GI recommended increasing PPI to BID. Rx sent. CAP - finished azithromycin and rocephin. DM1 - Home lantus dose 50 units. -On lantus 35 unit at the time of discharge. Discussed increasing the dose with rising blood sugar. continue short acting insulin. -Also listed in meds - insulin aspart for pump use - to be clarified and to update med list as outpatient. Resident Activity Tracking Resident Involvement: Resident Care Provided Care Provided: Adult [facility]
[2024-02-27 17:52] VITALS: BP 115/75
[2024-02-27] MEDS ORDERED: PANTOprazole 40 MG TAB PO SCH (21:00)
== END 2024-02-27 18:15 | disposition home or self-care (01) | DRG 193 ==
LOC: ED 12:31 → 2S 14:58 → SUATTDRO 14:58 → 2S 18:13
DX: E03.9 Hypothyroidism, unspecified; R11.10 Vomiting, unspecified; E10.43 Type 1 diabetes mellitus with diabetic autonomic (poly)neuropathy; I10 Essential (primary) hypertension; Z79.4 Long term (current) use of insulin; J96.01 Acute respiratory failure with hypoxia; E78.5 Hyperlipidemia, unspecified; Z96.41 Presence of insulin pump (external) (internal); E66.9 Obesity, unspecified; E10.319 Type 1 diabetes mellitus with unspecified diabetic retinopathy without macular edema; E10.10 Type 1 diabetes mellitus with ketoacidosis without coma; Z68.32 Body mass index [BMI] 32.0-32.9, adult; J18.9 Pneumonia, unspecified organism